=== PATIENT | male | born 1940 | race Caucasian/White ===

== ENCOUNTER → 2017-01-12 | Outpatient (CLI) | payer MEDICARE ==
--- NOTE | 2017-01-13 06:55 | MR ---
EXAMINATION TYPE: MR foot LT wo/w con DATE OF EXAM: 01/12/2017 COMPARISON: NONE HISTORY: Osteomyelitis left foot-bottom mid foot. Pain with open wound. CONTRAST: Standard multiplanar, multisequence MRI departmental protocol utilizing 9.5 ml mL intravenous Gadavis t gadolinium contrast. FINDINGS: There is ulceration skin and soft tissue along plantar surface midfoot level seen best on c oronal image 28 and sagittal image 12 with open defect identified. There is no suspicious edema or en hancement at this level to suggest significant active cellulitis or soft tissue infection. Bone marro w signal intensity is maintained at this level near the cuboid bone. No suspicious edema or enhanceme nt is identified. There is moderate to severe midfoot arthropathy with joint space loss and spurring. There is old Lisf ranc injury with divergence of the metatarsals relative to the cuneiform articulations, this is best seen on axial images at level of the base of second metatarsal which is 10 to 11 mm deviated laterall y from the medial base of the middle cuneiform. There is additional moderate to severe joint space loss in the first metatarsophalangeal and interpha langeal joints. Flexion in the toes is incidentally seen. Loss of normal sinus tarsi fat is noted. IMPRESSION: No convincing MRI evidence for active osteomyelitis. Other findings as noted above.
== END | disposition home or self-care (01) ==
LOC: RADMRIMAIN 20:01
PROVIDERS: ATTEND Surgery Vascular Surgery
DX: M86.9 Osteomyelitis, unspecified (principal)
CPT/HCPCS: 73720; A9581

== ENCOUNTER 2017-04-09 12:54 | Day surgery (SDC) | payer MEDICARE ==
[2017-04-07 16:20] VITALS: BMI 31.6
[~2017-04-09 12:54] MED LIST: DEXAMETHASONE SOD PHOSPHATE 10 MG/ML 1 ML VIAL IV ONE; HYDROmorphone 0.5 MG/0.5 ML SYRINGE IVP PRN; LACTATED RINGERS 1,000 ML IV SCH; LIDOCAINE 1% 20 ML VIAL (10MG/ML) FOR IV START INTRADERMA PRN; MIDAZOLAM 2 MG/2 ML VIAL IV PRN; ONDANSETRON 4 MG/2 ML VIAL IVP ONE; SCOPOLAMINE 1.5MG/72HR PATCH TRANSDERM ONE; ceFAZolin IN SWFI 2 GM/20 ML SYRINGE IVP ONE
[2017-04-09 13:54] LABS: Glucose,Whole Blood 235 mg/dL (75-99)
[2017-04-09] MEDS ORDERED: MIDAZOLAM 2 MG/2 ML VIAL ONE (16:27)
[2017-04-09] MEDS ORDERED: SUCCINYLCHOLINE CHLORIDE 100 MG/5 ML SYR IV ONE (16:27)
[2017-04-09] MEDS ORDERED: LIDOCAINE 1% INJ 10MG/ML (20 ML MDV) ONE (16:27)
[2017-04-09] MEDS ORDERED: fentaNYL (PF) 50 MCG/ML 2 ML AMP ONE (16:27)
[2017-04-09] MEDS ORDERED: PROPOFOL 10 MG/ML 20 ML VIAL IV ONE (16:27)
[2017-04-09] MEDS ORDERED: LACTATED RINGERS 1,000 ML IV ONE (17:00)
--- NOTE | 2017-04-09 17:15 | P.OP ---
Date of Procedure: 04/09/17 Preoperative Diagnosis: 1. Left plantar midfoot ulcer 2. Left Charcot midfoot arthritis 3. Left gastroc equinus contracture 4. Diabetes with peripheral neuropathy Postoperative Diagnosis: 1. Left plantar midfoot ulcer 2. Left Charcot midfoot arthritis 3. Left gastroc equinus contracture 4. Diabetes with peripheral neuropathy Procedure(s) Performed: Left gastroc recession (Heidi) Anesthesia: GETA Surgeon: Bong Davis Estimated Blood Loss (ml): 25 IV fluids (ml): 500 Pathology: none sent Condition: stable Disposition: PACU Indications for Procedure: The patient is a 77-year-old male with a medical history significant for diabetes with peripheral neuropathy. He was referred to my office with a nonhealing plantar midfoot ulcer. He is been managed in the wound Center. The patient came requesting surgical assistance to help his ulcer heel. We discussed both an isolated gastroc recession versus a combined gastroc recession and bony procedure. We discussed the literature for both. The patient and his requested an isolated gastroc recession acknowledging the risk of recurrence or failure to eradicate the ulcer. We discussed potential risks and complications of surgery including but not limited to risk of anesthesia, risk of superficial infection, risk of delayed wound healing, risk of recurrence of the ulcer, risk of failure to get the ulcer to heal, risk of need for further surgery, risk of need for an amputation, risk of chronic pain, risk of chronic swelling, risk of damage to blood vessels or nerves and possibly loss of life [place]mler the patient voiced his understanding of this and that there are other less common complications possible. He provided his verbal and written consent to go forward with surgery. Description of Procedure: Asians identified in preoperative holding and the correct left leg was marked with my initials. I reviewed the consent form with the patient and all of his questions were answered. He was brought back to the operating room and placed on an operating room table. A general anesthetic and preoperative antibiotics were administered. A tourniquet was applied of the proximal aspect of the left thigh. The patient's left leg was then prepped and draped in the standard sterile fashion. Prior to getting surgery timeout was performed identifying the correct patient operative extremity and procedure. The patient's leg was then elevated, exsanguinated with an Esmarch bandage and the tourniquet was inflated to 250 mmHg. Next I began by outlining a longitudinal incision 1 thumb breadth posterior to the tibia at the distal muscle belly of the gastrocnemius and skin incisions by the 50 but scalpel and I dissected down carefully to the subcutaneous tissue with tenotomy scissors. The superficial fascia was incised longitudinally in line with the skin incision. I bluntly developed the interval between the gastrocnemius aponeurosis and soleus fascia and between the gastrocnemius aponeurosis and superficial fascia. The sural nerve was seen to be adherent to the superficial fascia. Modified right angle retractors were placed in both intervals. I dissected the gastrocnemius aponeurosis from medial to lateral under direct visualization. The sural nerve was identified to be intact after completion of the gastroc recession. There is a significant increase in passive dorsiflexion with the knee extended. The wound was then copiously irrigated. The deep subcu was reapproximated using 3-0 Vicryl. The skin was closed with 3-0 nylon. I verified that all instrument, sponge, and sharp counts were correct. Sterile dressing consisting of Adaptic 4 x 4's and web roll was applied. The drapes were taken down and an Alex wrap was applied over the leg. He was placed in a tall cam boot and brought to PACU having top the procedure well.
[2017-04-09 17:25] VITALS: TEMP 97.4
[2017-04-09 17:31] LABS: Glucose,Whole Blood 256 mg/dL (75-99)
[2017-04-09] MEDS ORDERED: INSULIN ASPART 100 UNIT/ML 1 ML 10 ML VIAL SQ ONE (17:59)
[2017-04-09 18:24] VITALS: RESP 18
[2017-04-09 18:46] VITALS: PULSE 74
[2017-04-09 19:09] LABS: Glucose,Whole Blood 308 mg/dL (75-99)
[2017-04-09 19:14] VITALS: BP 146/70
== END 2017-04-09 19:32 | disposition home or self-care (01) ==
LOC: OR 12:54
PROVIDERS: ATTEND Orthopaedic Surgery
DX: E11.42 Type 2 diabetes mellitus with diabetic polyneuropathy (principal); E11.610 Type 2 diabetes mellitus with diabetic neuropathic arthropathy; E11.621 Type 2 diabetes mellitus with foot ulcer; L97.429 Non-pressure chronic ulcer of left heel and midfoot with unspecified severity; M62.472 Contracture of muscle, left ankle and foot; R26.81 Unsteadiness on feet; I10 Essential (primary) hypertension; E78.5 Hyperlipidemia, unspecified; Z79.4 Long term (current) use of insulin; Z79.899 Other long term (current) drug therapy; Z83.3 Family history of diabetes mellitus; Z87.891 Personal history of nicotine dependence; Z98.890 Other specified postprocedural states
CPT/HCPCS: 27687; J2250; J1100; J0690; J2405; J2001; J3010; J0330; J2704

== ENCOUNTER 2017-12-22 08:20 | Inpatient (IN) | payer MEDICARE ==
[2017-12-21 09:04] VITALS: BMI 31.6
[~2017-12-22 08:20] MED LIST changes: -HYDROmorphone 0.5 MG/0.5 ML SYRINGE IVP PRN; -LACTATED RINGERS 1,000 ML IV SCH; -SCOPOLAMINE 1.5MG/72HR PATCH TRANSDERM ONE; +fentaNYL (PF) 50 MCG/ML 2 ML AMP IV PRN; +fentaNYL (PF) 50 MCG/ML 20 ML VIAL IVP PRN
[2017-12-22 09:07] LABS: Glucose,Whole Blood 332 mg/dL (75-99)
[2017-12-22] MEDS: LACTATED RINGERS 1,000 ML IV SCH ×2 (09:10→18:22)
[2017-12-22] MEDS ORDERED: INSULIN ASPART 100 UNIT/ML 1 ML 10 ML VIAL SQ ONE ×2 (09:14→15:45)
[2017-12-22 11:30] LABS: Glucose,Whole Blood 259 mg/dL (75-99)
[2017-12-22] MEDS ORDERED: SUCCINYLCHOLINE CHLORIDE 100 MG/5 ML SYR IV ONE ×2 (11:31→21:00)
[2017-12-22] MEDS ORDERED: LIDOCAINE 1% INJ 10MG/ML (20 ML MDV) ONE ×2 (11:31→21:00)
[2017-12-22] MEDS ORDERED: NEOSTIGMINE 1 MG/ML 10 ML VIAL ONE ×2 (11:31→21:00)
[2017-12-22] MEDS ORDERED: MIDAZOLAM 2 MG/2 ML VIAL ONE ×2 (11:31→21:00)
[2017-12-22] MEDS ORDERED: ROCURONIUM BROMIDE 10 MG/ML 10 ML VIAL IV ONE ×2 (11:31→21:00)
[2017-12-22] MEDS ORDERED: fentaNYL (PF) 50 MCG/ML 2 ML AMP ONE ×2 (11:31→21:00)
[2017-12-22] MEDS ORDERED: PROPOFOL 10 MG/ML 20 ML VIAL IV ONE ×2 (11:31→21:00)
[2017-12-22] MEDS ORDERED: ePHEDrine SULFATE/0.9% NACL/PF 50 MG/5 ML SYRINGE IV ONE ×2 (11:31→21:00)
[2017-12-22] MEDS ORDERED: GLYCOPYRROLATE 0.2 MG/ML 2 ML VIAL ONE ×2 (11:31→21:00)
[2017-12-22] MEDS ORDERED: PHENYLEPHRINE-0.9% NACL SYG 1 MG/10 ML SYRINGE ONE ×2 (11:31→21:00)
[2017-12-22] MEDS ORDERED: HYDROmorphone (PF) 1 MG/ML ONE (11:31)
[2017-12-22] MEDS ORDERED: LACTATED RINGERS 1,000 ML IV ONE ×3 (12:18→15:51)
[2017-12-22] MEDS ORDERED: NALOXONE 0.4 MG/ML 1 ML VIAL IV PRN (13:56)
[2017-12-22] MEDS ORDERED: MAGNESIUM HYDROXIDE 2,400 MG/10 ML CUP PO PRN (13:56)
[2017-12-22] MEDS ORDERED: HYDROmorphone 1 MG/ML 1 ML SYRINGE IVP PRN (13:56)
[2017-12-22] MEDS ORDERED: HYDROcodone/APAP 5-325MG 1 EACH TAB PO PRN ×2 (13:56)
[2017-12-22] MEDS ORDERED: DIAZEPAM 5 MG TAB PO PRN (13:56)
--- NOTE | 2017-12-22 13:56 | P.OP ---
Date of Procedure: 12/22/17 Preoperative Diagnosis: 1. Left Charcot midfoot arthritis and collapse 2. Left recurrent plantar mid foot ulceration with skin at risk 3. Diabetes with peripheral neuropathy Postoperative Diagnosis: Same Procedure(s) Performed: 1. Left midfoot (multiple joints) 2. Left talonavicular fusion 3. Left biplanar midfoot osteotomy Anesthesia: REJI regional Surgeon: Bong Davis Employment Services Director #1: Rizwan Dumont Estimated Blood Loss (ml): 250 IV fluids (ml): 1,400 Pathology: none sent Condition: stable Disposition: PACU Indications for Procedure: The patient is a 77-year-old male with a history of multiple medical problems including type 2 diabetes and peripheral neuropathy who is had recurrent breakdown under the plantar aspect of his foot. His x-rays showed extensive Charcot arthritis and collapse. He initially underwent wound management and an isolated gastroc recession. Initially his ulcer healed but he has had recurrent superficial ulceration. He was seen in the wound center and by vascular surgery and sent to my office for definitive treatment. The patient had a repeat MRI which showed no evidence of deep infection. We discussed different surgical options and my recommendation was to undergo a biplanar midfoot osteotomy and fusion using Charcot beams and bolts. Discussed potential risks and complications of surgery including but not limited to risk of anesthesia, risk of superficial infection, risk of deep infection, risk of delayed wound healing, risk of nonunion of the fusion site, risk of malunion the fusion site, risk of symptom medical hardware, risk of chronic pain, risk of chronic swelling, risk of osteomyelitis, risk of DVT, risk of PE, risk of inability to regain preinjury level of function, risk of generalized to satisfaction of surgery, risk of amputation, and possibly loss of life. The patient voiced his understanding of this and acknowledges his risk for deep infection potentially requiring amputation. He provided his verbal and written consent to go forward with surgery. Description of Procedure: The patient was identified in preoperative holding and the correct left leg was marked my initials. I reviewed the consent form with the patient and his . All of their questions were answered. The patient was then brought back to the operating room by anesthesia. He was positioned on the OR table where general anesthetic and preoperative antibiotics were administered. A bump was placed under the left buttock internally rotating the leg to neutral. A ramp was placed under the left leg to facilitate imaging. A tourniquet was applied to the proximal aspect of the thigh. The left leg was then prepped and draped in the standard sterile fashion. Prior to starting surgery timeout was performed identifying the correct patient, operative extremity, and procedure. The patient's leg was then elevated, exsanguinated with an Esmarch bandage, and the tourniquet was inflated to 250 mmHg. Next I began by outlining a longitudinal incision over the medial aspect of the foot starting proximal to the talonavicular joint and ending at the mid shaft of the first metatarsal. Skin incision with a scalpel and dissection was carried down carefully to the subcutaneous tissue with tenotomy scissors. The midfoot was circumferentially exposed. K wires were placed for a biplanar osteotomy and fluoroscopy was used to verify the orientation in both planes. A cut guide was placed over the K wires and a closing wedge midfoot osteotomy was performed centered at the apex of the deformity in both planes. After both cuts were made with a reciprocating saw and osteotome was used to free up cut. I was able to reduce the deformity in both the AP and lateral plane. At this point the talonavicular joint was exposed and a distractor was placed. Articular cartilage from the talar head and navicular removed with a series of osteotomes and curettes. A 2.0 mm drill bit was used to perforate the subchondral bone to facilitate fusion. Augment was packed in the fusion site. An incision was made over the first MTP joint. Dissection was carried down to the EHL tendon was retracted laterally. The first MTP joint capsule was incised longitudinally in line with the skin incision. A K wire was then driven through the first metatarsal head up to the osteotomy site. The foot was adducted and plantarflexed to reduce the deformity and then the guidewire was driven across the osteotomy and into the talar head. The position of the wire was checked in both the AP and lateral plane. A cannulated depth gauge was used to determine the length of the beam and then a drill was used through drill over the K wire up to the talar head. A threaded compression Charcot beam was then placed over the K wire generating excellent compression. An additional hole was placed on the second ray. An incision was made over the dorsal aspect of the second MTP joint. The extensor tendon was retracted laterally and the capsule was incised. A K wire was driven through the second metatarsal head across the osteotomy site and into the talar body. The length of the K wire was measured with a cannulated depth gauge and then a solid beam was placed through second metatarsal head across the osteotomy site and into the talar body. Final fluoroscopic images were taken verifying that both the beam ample across the osteotomy site and within the talus. Both wounds were copiously irrigated. The medial wound was closed in layers with 0 Vicryl the deep subcu and periosteal layer, 2-0 Vicryl subcu, and 3-0 nylon in the skin. The capsules of the MTP joints were closed with 0 Vicryl. The deep subcu was closed with 2-0 Vicryl. The skin was closed with 3-0 nylon horizontal mattress sutures. The tourniquet was let down with a total tourniquet time of 105 minutes. I verified that all instrument, sponge, and sharp counts were correct. A sterile dressing consisting of Ancef Adaptic, 4 x 4, and web roll was applied. A well-padded bulky Mathews splint was placed with the ankle at neutral. The patient was then awoken from his anesthetic, transferred to a gurney, and brought to PACU in the procedure well. Rizwan Dumont PA-C was required a skilled assistant professor of spanish for patient positioning, surgical exposure, completion of osteotomy, placement of hardware, and closure of wounds. Plan: The patient is going to be admitted to the hospital for IV antibiotics, internal medicine consultation, and discharge planning. While the patient is in the hospital he will need to be treated with Lovenox for DVT prophylaxis. Following discharge from the hospital and okay with him taking aspirin for DVT prophylaxis unless medicine requests something different.
[2017-12-22] MEDS ORDERED: ROPIVACAINE 5 MG/ML 30 ML VIAL MISCELLANE ONE (14:58)
--- NOTE | 2017-12-22 15:10 | FL ---
Fluoroscopy HISTORY: Fusion 51 seconds fluoroscopy time supplied to the referring clinician. 4 intraoperative C-arm images docum ent the procedure. See dictated report from orthopedic surgery.
--- NOTE | 2017-12-22 15:11 | XR ---
Limited left leg HISTORY: Left pleural effusion 4 intraoperative C-arm images document the procedure.
[2017-12-22 15:32] LABS: Glucose,Whole Blood 281 mg/dL (75-99)
[2017-12-22 15:49] LABS: Basophils % (A) 0 %; Eosinophils # (A) 0.3 k/uL (0-0.7); Eosinophils % (A) 3 %; HCT 38.9 % (39.0-53.0); HGB 12.3 gm/dL (13.0-17.5); Lymphocytes # (A) 1.6 k/uL (1.0-4.8); Lymphocytes % (A) 21 %; MCH 28.8 pg (25.0-35.0); MCHC 31.7 g/dL (31.0-37.0); Mean Platelet Volume 6.3; Monocytes # (A) 0.4 k/uL (0-1.0); Monocytes % (A) 5 %; Neutrophils # (A) 5.3 k/uL (1.3-7.7); Neutrophils % (A) 69 %; Platelet Count 174 k/uL (150-450); RBC 4.28 m/uL (4.30-5.90); RDW 14.8 % (11.5-15.5); WBC 7.6 k/uL (3.8-10.6)
--- NOTE | 2017-12-22 17:42 | P.ONQ ---
Anesthesiology Proc Note - PNB - Peripheral Nerve Block Performed Left Popliteal Indication: Acute Post-Operative Pain, Requested by physician (Dr Page) Sedation Type: Sedate with meaningful contact maintained Preparation: Sterile Prep Position: Supine (lateral) Catheter: None Needle Types: Other (see comment) (Minda) Needle Size: 100mm (4") Needle Gauge: 21 Injectate: 0.5% Ropivacaine (see comment for volume) (22cc) Blood Aspirated: No Pain Paresthesia on Injection Noted: No Resistance on Injection: Normal Events: Uneventful and Well Tolerated
[2017-12-22] MEDS: SODIUM CHLORIDE 0.9% 1,000 ML IV SCH (18:21)
[2017-12-22] MEDS: ceFAZolin IN SWFI 2 GM/20 ML SYRINGE IVP SCH (19:29)
[2017-12-22 20:06] LABS: Glucose,Whole Blood 337 mg/dL (75-99)
[2017-12-22] MEDS ORDERED: HYDROmorphone 1 MG/ML 1 ML SYRINGE ONE (21:00)
[2017-12-22] MEDS ORDERED: INSULIN DETEMIR 100 UNIT/ML 10 ML VIAL SQ SCH (21:00)
[2017-12-22] MEDS: metFORMIN 500 MG TAB PO SCH (21:08)
[2017-12-22] MEDS: ATORVASTATIN 20 MG TAB PO SCH (21:08)
[2017-12-22] MEDS: SENNOSIDES-DOCUSATE SODIUM 1 EACH TAB PO SCH (21:44)
[2017-12-23] MEDS: ceFAZolin IN SWFI 2 GM/20 ML SYRINGE IVP SCH (00:08)
[2017-12-23] MEDS: SODIUM CHLORIDE 0.9% 1,000 ML IV SCH ×3 (04:55→21:37)
[2017-12-23] MEDS ORDERED: INSULIN DETEMIR 100 UNIT/ML 10 ML VIAL SQ SCH (06:36)
[2017-12-23 07:04] LABS: Glucose,Whole Blood 289 mg/dL (75-99)
[2017-12-23] MEDS: glipiZIDE 5 MG TAB PO SCH (07:43)
[2017-12-23] MEDS: metFORMIN 500 MG TAB PO SCH ×2 (07:43→21:32)
[2017-12-23] MEDS: LISINOPRIL 10 MG TAB PO SCH (07:43)
[2017-12-23] MEDS: ENOXAPARIN 40 MG/0.4 ML SYRINGE SQ SCH (07:43)
[2017-12-23 11:11] LABS: Glucose,Whole Blood 260 mg/dL (75-99)
[2017-12-23 11:39] LABS: Basophils % (A) 0 %; Eosinophils # (A) 0.3 k/uL (0-0.7); Eosinophils % (A) 3 %; HGB 11.7 gm/dL (13.0-17.5); Lymphocytes # (A) 1.1 k/uL (1.0-4.8); Lymphocytes % (A) 11 %; MCH 29.2 pg (25.0-35.0); MCHC 31.6 g/dL (31.0-37.0); MCV 92.3 fL (80.0-100.0); Mean Platelet Volume 6.5; Monocytes # (A) 0.7 k/uL (0-1.0); Monocytes % (A) 7 %; Neutrophils # (A) 8.1 k/uL (1.3-7.7); Neutrophils % (A) 78 %; Platelet Count 164 k/uL (150-450); RBC 4.01 m/uL (4.30-5.90); RDW 14.8 % (11.5-15.5); WBC 10.3 k/uL (3.8-10.6)
[2017-12-23 11:46] LABS: ALT 28 U/L (21-72); AST 17 U/L (17-59); Albumin 3.1 g/dL (3.5-5.0); Alkaline Phosphatase 40 U/L (38-126); Anion Gap 11 mmol/L; Blood Urea Nitrogen 15 mg/dL (9-20); Calcium 8.5 mg/dL (8.4-10.2); Carbon Dioxide 22 mmol/L (22-30); Chloride 103 mmol/L (98-107); Glucose 251 mg/dL (74-99); Potassium 4.2 mmol/L (3.5-5.1); Sodium 136 mmol/L (137-145); Total Bilirubin 0.5 mg/dL (0.2-1.3); Total Protein 5.7 g/dL (6.3-8.2)
--- NOTE | 2017-12-23 12:26 | P.CONS ---
History of Present Illness - History of Present Illness 77-year-old male who is postoperative for left foot biplanar osteotomy midfoot fusion history of Charcot. Patient is a diabetic Review of Systems Musculoskeletal: left: foot pain Past Medical History Past Medical History: Cancer, Diabetes Mellitus, Hyperlipidemia, Osteoarthritis (OA), Prostate Disorder, Sleep Apnea/CPAP/BIPAP Additional Past Medical History / Comment(s): doesn't use CPAP, hx. skin cancer on nose, finished in wound center couple weeks ago for wound left foot-now healed per pt. History of Any Multi-Drug Resistant Organisms: None Reported Past Surgical History: Adenoidectomy, Appendectomy, Back Surgery, Orthopedic Surgery, Tonsillectomy Additional Past Surgical History / Comment(s): ROTATOR CUFF BILAT SHOULDERS, BACK SURGERY FUSION L4-5 2014 Past Anesthesia/Blood Transfusion Reactions: No Reported Reaction Past Psychological History: No Psychological Hx Reported Smoking Status: Former smoker Past Alcohol Use History: Rare Additional Past Alcohol Use History / Comment(s): smoked 1 ppd from age 17 until 1993 Past Drug Use History: None Reported - Past Family History Mother Family Medical History: Cancer Additional Family Medical History / Comment(s): COLON CANCER Father Family Medical History: Diabetes Mellitus Medications and Allergies Home Medications Medication Instructions Recorded Confirmed Type Lisinopril [Zestril] 10 mg PO DAILY 01/11/17 12/21/17 History Simvastatin 40 mg PO HS 01/11/17 12/21/17 History glipiZIDE [Glucotrol] 5 mg PO DAILY 01/11/17 12/21/17 History metFORMIN HCL 1,000 mg PO BID 01/11/17 12/21/17 History Insulin Glargine,Hum.rec.anlog 60 units SQ HS 04/07/17 12/22/17 History [Ko Rogers] Allergies Allergy/AdvReac Type Severity Reaction Status Date / Time No Known Allergies Allergy Verified 12/22/17 08:54 Physical Exam Vitals: Vital Signs Temp Pulse Pulse Resp BP BP Pulse Ox 12/23/17 07:43 86 16 12/23/17 05:30 98.1 F 86 16 132/67 96 12/22/17 21:00 98 F 85 16 143/73 94 L 12/22/17 17:15 79 16 102/73 98 12/22/17 16:45 83 16 100/63 98 12/22/17 16:05 81 16 99/76 99 12/22/17 15:50 74 16 110/61 96 12/22/17 15:35 74 16 108/53 95 12/22/17 15:18 75 16 118/69 97 12/22/17 15:03 76 16 115/56 96 12/22/17 14:47 73 16 116/53 97 12/22/17 14:34 74 16 119/60 96 12/22/17 14:19 96.8 F L 79 14 122/61 100 Intake and Output 12/22/17 12/23/17 12/23/17 22:59 06:59 14:59 Intake Total 275 800 Balance 275 800 Intake: IV 275 800 Sodium Chloride 0.9% 1, 800 000 ml @ 100 mls/hr IV . Q10H [facility] Rx#:[id number] Other: Voiding Method Urinal Urinal # Voids 2 Weight 97.069 kg 97.069 kg - Constitutional General appearance: obese - EENT Eyes: PERRLA Ears: bilateral: normal - Neck Neck: normal ROM - Respiratory Respiratory: bilateral: CTA - Cardiovascular Rhythm: regular - Gastrointestinal General gastrointestinal: scaphoid, soft - Integumentary Integumentary: normal - Neurologic Neurologic: CNII-XII intact - Musculoskeletal Left foot splinted and wrapped to knee - Psychiatric Psychiatric: A&O x's 3, appropriate affect, intact judgment & insight Results CBC & Chem 7: 12/23/17 10:29 12/23/17 10:29 Labs: Abnormal Lab Results - Last 24 Hours (Table) 12/22/17 12/22/17 12/22/17 Range/Units 15:25 15:25 15:27 RBC 4.28 L (4.30-5.90) m/uL Hgb 12.3 L (13.0-17.5) gm/dL Hct 38.9 L (39.0-53.0) % Neutrophils # (1.3-7.7) k/uL Sodium (137-145) mmol/L Creatinine (0.66-1.25) mg/dL Glucose (74-99) mg/dL POC Glucose (mg/dL) 281 H (75-99) mg/dL Total Protein (6.3-8.2) g/dL Albumin (3.5-5.0) g/dL Vitamin D 25-Hydroxy 28.0 L (30.0-100.0) ng/mL 12/22/17 12/23/17 12/23/17 Range/Units 20:04 07:02 10:29 RBC 4.01 L (4.30-5.90) m/uL Hgb 11.7 L (13.0-17.5) gm/dL Hct 37.0 L (39.0-53.0) % Neutrophils # 8.1 H (1.3-7.7) k/uL Sodium (137-145) mmol/L Creatinine (0.66-1.25) mg/dL Glucose (74-99) mg/dL POC Glucose (mg/dL) 337 H 289 H (75-99) mg/dL Total Protein (6.3-8.2) g/dL Albumin (3.5-5.0) g/dL Vitamin D 25-Hydroxy (30.0-100.0) ng/mL 12/23/17 12/23/17 Range/Units 10:29 11:08 RBC (4.30-5.90) m/uL Hgb (13.0-17.5) gm/dL Hct (39.0-53.0) % Neutrophils # (1.3-7.7) k/uL Sodium 136 L (137-145) mmol/L Creatinine 0.60 L (0.66-1.25) mg/dL Glucose 251 H (74-99) mg/dL POC Glucose (mg/dL) 260 H (75-99) mg/dL Total Protein 5.7 L (6.3-8.2) g/dL Albumin 3.1 L (3.5-5.0) g/dL Vitamin D 25-Hydroxy (30.0-100.0) ng/mL Assessment and Plan Plan: Assessment Left Charcot foot postoperative biplanar osteotomy with midfoot fusion History of diabetes type 2 to be covered with NovoLog scale History of hypertension History of hyperlipidemia History of osteoarthritis BPH Sleep apnea Plan We'll monitor hypertension and noted diabetes
[2017-12-23] MEDS ORDERED: INSULIN ASPART 100 UNIT/ML 1 ML 10 ML VIAL SQ SCH (12:30)
[2017-12-23] MEDS: MULTIVITAMINS, THERA 1 EACH TAB PO SCH (12:31)
[2017-12-23] MEDS: INSULIN ASPART 100 UNIT/ML 1 ML 10 ML VIAL SQ SCH ×3 (12:31→21:32)
--- NOTE | 2017-12-23 17:08 | P.PN ---
Subjective Progress Note Date: 12/23/17 Principal diagnosis: S/P Left talonavicular fusion and Left biplanar midfoot osteotomy Patient is seen at bedside today. He is postop day #1 from left talonavicular fusion and Left biplanar midfoot osteotomy. He has minimal pain at the surgical site as expected but denies any new complaints. He denies new numbness , tingling or calf pain. Review of systems is negative for fever, chills, chest pain, shortness of breath or other Objective - Vital Signs Vital signs: Vital Signs Temp 98.1 F 12/23/17 05:30 Pulse 86 12/23/17 15:06 Resp 16 12/23/17 15:06 BP 132/67 12/23/17 05:30 Pulse Ox 96 12/23/17 05:30 Intake & Output 12/22/17 12/23/17 12/23/17 18:59 06:59 18:59 Intake Total 2075 800 700 Output Total 250 Balance 1825 800 700 Weight 97.069 kg 97.069 kg Intake: IV 2075 800 Sodium Chloride 0.9% 1, 800 000 ml @ 100 mls/hr IV . Q10H [facility] Rx#:[id number] Intake, IV Titration 700 Amount Sodium Chloride 0.9% 1, 700 000 ml @ 100 mls/hr IV . Q10H [facility] Rx#:[id number] Output: Estimated Blood Loss 250 Other: Voiding Method Urinal Urinal # Voids 2 - Exam Inspection reveals a benign well padded bulky splint. There is no active bleeding or drainage. Neurovascular status is intact throughout the lower extremity. He had preoperative peripheral neuropathy and numbness. Calf is soft and nontender. Less than 2 second cap refill is present in all digits - Constitutional General appearance: Present: no acute distress - Psychiatric Psychiatric: Present: A&O x's 3, appropriate affect, intact judgment & insight - Labs CBC & Chem 7: 12/23/17 10:29 12/23/17 10:29 Labs: Abnormal Lab Results - Last 24 Hours (Table) 12/22/17 12/22/17 12/23/17 Range/Units 15:25 20:04 07:02 RBC (4.30-5.90) m/uL Hgb (13.0-17.5) gm/dL Hct (39.0-53.0) % Neutrophils # (1.3-7.7) k/uL Sodium (137-145) mmol/L Creatinine (0.66-1.25) mg/dL Glucose (74-99) mg/dL POC Glucose (mg/dL) 337 H 289 H (75-99) mg/dL Total Protein (6.3-8.2) g/dL Albumin (3.5-5.0) g/dL Vitamin D 25-Hydroxy 28.0 L (30.0-100.0) ng/mL 12/23/17 12/23/17 12/23/17 Range/Units 10:29 10:29 11:08 RBC 4.01 L (4.30-5.90) m/uL Hgb 11.7 L (13.0-17.5) gm/dL Hct 37.0 L (39.0-53.0) % Neutrophils # 8.1 H (1.3-7.7) k/uL Sodium 136 L (137-145) mmol/L Creatinine 0.60 L (0.66-1.25) mg/dL Glucose 251 H (74-99) mg/dL POC Glucose (mg/dL) 260 H (75-99) mg/dL Total Protein 5.7 L (6.3-8.2) g/dL Albumin 3.1 L (3.5-5.0) g/dL Vitamin D 25-Hydroxy (30.0-100.0) ng/mL Assessment and Plan (1) Charcot's joint of foot Narrative/Plan: He will continue with routine postop orthopedic protocol including pain management, wound care, PT, DVT prophylaxis and medical management. Expect that he will transfer to rehab in next few days. Current Visit: Yes Status: Acute Priority: Medium Code(s): M14.679 - CHARCOT'S JOINT, UNSPECIFIED ANKLE AND FOOT SNOMED Code(s): 065045377 Time with Patient: Less than 30
[2017-12-23 17:32] LABS: Glucose,Whole Blood 240 mg/dL (75-99)
[2017-12-23 21:15] LABS: Glucose,Whole Blood 253 mg/dL (75-99)
[2017-12-23] MEDS: LACTATED RINGERS 1,000 ML IV SCH (21:29)
[2017-12-23] MEDS: SENNOSIDES-DOCUSATE SODIUM 1 EACH TAB PO SCH (21:32)
[2017-12-23] MEDS: ATORVASTATIN 20 MG TAB PO SCH (21:32)
[2017-12-24] MEDS ORDERED: HYDROmorphone 2 MG TAB PO PRN (06:22)
[2017-12-24 07:15] LABS: Basophils % (A) 0 %; Eosinophils # (A) 0.2 k/uL (0-0.7); Eosinophils % (A) 2 %; HCT 33.4 % (39.0-53.0); HGB 10.6 gm/dL (13.0-17.5); Lymphocytes # (A) 1.2 k/uL (1.0-4.8); Lymphocytes % (A) 12 %; MCH 28.4 pg (25.0-35.0); MCHC 31.8 g/dL (31.0-37.0); MCV 89.3 fL (80.0-100.0); Mean Platelet Volume 6.9; Monocytes # (A) 0.6 k/uL (0-1.0); Monocytes % (A) 6 %; Neutrophils # (A) 7.6 k/uL (1.3-7.7); Neutrophils % (A) 78 %; Platelet Count 166 k/uL (150-450); RBC 3.74 m/uL (4.30-5.90); RDW 14.4 % (11.5-15.5); WBC 9.7 k/uL (3.8-10.6)
[2017-12-24 07:17] LABS: Glucose,Whole Blood 185 mg/dL (75-99)
[2017-12-24] MEDS: ENOXAPARIN 40 MG/0.4 ML SYRINGE SQ SCH (07:44)
[2017-12-24] MEDS: glipiZIDE 5 MG TAB PO SCH (07:44)
[2017-12-24] MEDS: LISINOPRIL 10 MG TAB PO SCH (07:44)
[2017-12-24] MEDS: INSULIN ASPART 100 UNIT/ML 1 ML 10 ML VIAL SQ SCH ×4 (07:44→21:01)
[2017-12-24] MEDS: metFORMIN 500 MG TAB PO SCH ×2 (07:44→21:03)
[2017-12-24 11:37] LABS: Glucose,Whole Blood 239 mg/dL (75-99)
[2017-12-24] MEDS: MULTIVITAMINS, THERA 1 EACH TAB PO SCH (12:40)
--- NOTE | 2017-12-24 13:08 | P.PN ---
Subjective Progress Note Date: 12/24/17 Principal diagnosis: S/P Left talonavicular fusion and Left biplanar midfoot osteotomy Patient is seen at bedside today. He is postop day #2 from left talonavicular fusion and Left biplanar midfoot osteotomy. He has minimal pain at the surgical site as expected but denies any new complaints. He denies new numbness , tingling or calf pain. Review of systems is negative for fever, chills, chest pain, shortness of breath or other Objective - Vital Signs Vital signs: Vital Signs Temp 98.4 F 12/24/17 06:31 Pulse 87 12/24/17 07:44 Resp 16 12/24/17 07:44 BP 138/70 12/24/17 06:31 Pulse Ox 92 L 12/24/17 06:31 Intake & Output 12/23/17 12/24/17 12/24/17 18:59 06:59 18:59 Intake Total 700 500 Balance 700 500 Intake: IV 400 Sodium Chloride 0.9% 1, 400 000 ml @ 100 mls/hr IV . Q10H [facility] Rx#:[id number] Intake, IV Titration 700 Amount Sodium Chloride 0.9% 1, 700 000 ml @ 100 mls/hr IV . Q10H [facility] Rx#:[id number] Oral 100 Other: Voiding Method Urinal Urinal Urinal - Exam Inspection reveals a benign well padded bulky splint. There is no active bleeding or drainage. Neurovascular status is intact throughout the lower extremity. He had preoperative peripheral neuropathy and numbness. Calf is soft and nontender. Less than 2 second cap refill is present in all digits - Constitutional General appearance: Present: no acute distress - Psychiatric Psychiatric: Present: A&O x's 3, appropriate affect, intact judgment & insight - Labs CBC & Chem 7: 12/24/17 06:56 12/23/17 10:29 Labs: Abnormal Lab Results - Last 24 Hours (Table) 12/23/17 12/23/17 12/24/17 Range/Units 17:28 21:13 06:56 RBC 3.74 L (4.30-5.90) m/uL Hgb 10.6 L (13.0-17.5) gm/dL Hct 33.4 L (39.0-53.0) % POC Glucose (mg/dL) 240 H 253 H (75-99) mg/dL 12/24/17 12/24/17 Range/Units 07:16 11:36 RBC (4.30-5.90) m/uL Hgb (13.0-17.5) gm/dL Hct (39.0-53.0) % POC Glucose (mg/dL) 185 H 239 H (75-99) mg/dL Assessment and Plan (1) Charcot's joint of foot Narrative/Plan: He will continue with routine postop orthopedic protocol including pain management, wound care, PT, DVT prophylaxis and medical management. Expect that he will transfer to rehab in next few days. Current Visit: Yes Status: Acute Priority: Medium Code(s): M14.679 - CHARCOT'S JOINT, UNSPECIFIED ANKLE AND FOOT SNOMED Code(s): 978277113 Time with Patient: Less than 30
[2017-12-24] MEDS: LACTATED RINGERS 1,000 ML IV SCH (14:34)
[2017-12-24] MEDS: SODIUM CHLORIDE 0.9% 1,000 ML IV SCH ×2 (14:34→21:47)
[2017-12-24 16:54] LABS: Glucose,Whole Blood 201 mg/dL (75-99)
--- NOTE | 2017-12-24 19:49 | P.PN ---
Subjective Progress Note Date: 12/24/17 Progress note being dictated for Dr. Ravi. Interval history: This is a 77-year-old Left talonavicular fusion and Left biplanar midfoot osteotomy. Patient has history of neuropathy, denies pain currently. Denies numbness. Passing flatus, positive bowel movement this morning. Denies chest pain, palpitations or increasing shortness of breath. Objective - Vital Signs Vital signs: Vital Signs Temp 99.8 F H 12/24/17 12:35 Pulse 98 12/24/17 15:28 Resp 20 12/24/17 15:28 BP 127/62 12/24/17 12:35 Pulse Ox 94 L 12/24/17 12:35 Intake & Output 12/24/17 12/24/17 12/25/17 06:59 18:59 06:59 Intake Total 500 Balance 500 Intake: IV 400 Sodium Chloride 0.9% 1, 400 000 ml @ 100 mls/hr IV . Q10H SHAHEED Rx#:[id number] Oral 100 Other: Voiding Method Urinal Urinal # Voids 3 # Bowel Movements 2 - Exam PHYSICAL EXAM: VITAL SIGNS: As above GENERAL: Sitting up in bed, no acute distress HEENT: Conjunctivae normal. eyes normal. Oral mucosa moist NECK: No JVD. No thyroid enlargement. No LNs CARDIOVASCULAR: S1, S2 muffled. No murmur RESPIRATION: Breath sounds diminished in the bases. No rhonchi or crackles. No bronchial breathing. ABDOMEN: Soft, nontender . No guarding. no masses palpable. .Bowel sounds heard. LEGS: No edema. no swelling PSYCHIATRY: Alert and oriented -3, mood and affect normal. NERVOUS SYSTEM: Cranial N 2-12 grossly normal. Moves all 4 limbs. Diffuse weakness No focal deficits. EXTREMITY: Left lower extremity with splint clean dry and intact. digits warm. - Labs CBC & Chem 7: 12/24/17 06:56 12/23/17 10:29 Labs: Abnormal Lab Results - Last 24 Hours (Table) 12/23/17 12/24/17 12/24/17 Range/Units 21:13 06:56 07:16 RBC 3.74 L (4.30-5.90) m/uL Hgb 10.6 L (13.0-17.5) gm/dL Hct 33.4 L (39.0-53.0) % POC Glucose (mg/dL) 253 H 185 H (75-99) mg/dL 12/24/17 12/24/17 Range/Units 11:36 16:52 RBC (4.30-5.90) m/uL Hgb (13.0-17.5) gm/dL Hct (39.0-53.0) % POC Glucose (mg/dL) 239 H 201 H (75-99) mg/dL Assessment and Plan Assessment: 1. Charcot's foot, S/P Left talonavicular fusion and Left biplanar midfoot osteotomy 2. Diabetes mellitus type 2 3. Hypertension 4. Hyperlipidemia 5. Sleep apnea 6. BPH Plan: Continue current medication regime ,monitoring and symptomatic treatment. Pain management as per primary. Levemir increased, blood sugars elevated. Close monitoring of Accu-Cheks. GI and DVT prophylaxis in place. Social work assisting and subacute rehab placement. The impression and plan of care has been dictated as directed. : I performed a history and examination of this patient, discussed the same with the dictator. I agree with the dictator's note ,documented as a scribe. Any additional findings or plans will be noted.
[2017-12-24] MEDS ORDERED: PANTOPRAZOLE 40 MG/10 ML VIAL IVP SCH (20:00)
[2017-12-24 21:02] LABS: Glucose,Whole Blood 271 mg/dL (75-99)
[2017-12-24] MEDS: ATORVASTATIN 20 MG TAB PO SCH (21:04)
[2017-12-24] MEDS: SENNOSIDES-DOCUSATE SODIUM 1 EACH TAB PO SCH (21:47)
[2017-12-24] MEDS: PANTOPRAZOLE 40 MG TABLET PO SCH (21:53)
[2017-12-24] MEDS: INSULIN DETEMIR 100 UNIT/ML 10 ML VIAL SQ SCH (21:53)
[2017-12-25] MEDS: SODIUM CHLORIDE 0.9% 1,000 ML IV SCH ×3 (02:59→23:30)
[2017-12-25 07:01] LABS: Glucose,Whole Blood 148 mg/dL (75-99)
[2017-12-25 07:17] LABS: Basophils % (A) 0 %; Eosinophils # (A) 0.1 k/uL (0-0.7); Eosinophils % (A) 2 %; HCT 32.5 % (39.0-53.0); HGB 10.6 gm/dL (13.0-17.5); Lymphocytes # (A) 1.1 k/uL (1.0-4.8); Lymphocytes % (A) 12 %; MCH 29.3 pg (25.0-35.0); MCHC 32.4 g/dL (31.0-37.0); MCV 90.2 fL (80.0-100.0); Mean Platelet Volume 6.7; Monocytes # (A) 0.6 k/uL (0-1.0); Monocytes % (A) 6 %; Neutrophils # (A) 7.2 k/uL (1.3-7.7); Neutrophils % (A) 79 %; Platelet Count 169 k/uL (150-450); RBC 3.61 m/uL (4.30-5.90); RDW 14.2 % (11.5-15.5); WBC 9.2 k/uL (3.8-10.6)
[2017-12-25 07:38] LABS: Anion Gap 8 mmol/L; Blood Urea Nitrogen 11 mg/dL (9-20); Calcium 8.4 mg/dL (8.4-10.2); Carbon Dioxide 24 mmol/L (22-30); Chloride 104 mmol/L (98-107); Glucose 128 mg/dL (74-99); Potassium 3.9 mmol/L (3.5-5.1); Sodium 136 mmol/L (137-145)
[2017-12-25] MEDS: ENOXAPARIN 40 MG/0.4 ML SYRINGE SQ SCH (08:07)
[2017-12-25] MEDS: LISINOPRIL 10 MG TAB PO SCH (08:07)
[2017-12-25] MEDS: glipiZIDE 5 MG TAB PO SCH (08:07)
[2017-12-25] MEDS: metFORMIN 500 MG TAB PO SCH ×2 (08:07→21:01)
[2017-12-25] MEDS: PANTOPRAZOLE 40 MG TABLET PO SCH (08:07)
[2017-12-25] MEDS: INSULIN ASPART 100 UNIT/ML 1 ML 10 ML VIAL SQ SCH ×4 (08:09→21:02)
[2017-12-25] MEDS: MULTIVITAMINS, THERA 1 EACH TAB PO SCH (11:29)
[2017-12-25] MEDS: LACTATED RINGERS 1,000 ML IV SCH (11:29)
[2017-12-25 11:47] LABS: Glucose,Whole Blood 123 mg/dL (75-99)
--- NOTE | 2017-12-25 12:45 | P.PN ---
Subjective This is a 77-year-old Left talonavicular fusion and Left biplanar midfoot osteotomy. Patient has history of neuropathy, denies pain currently. Denies numbness. Passing flatus, positive bowel movement this morning. Denies chest pain, palpitations or increasing shortness of breath. 12/25/2017 No overnight events Objective - Vital Signs Vital signs: Vital Signs Temp 99.1 F 12/25/17 05:00 Pulse 85 12/25/17 08:50 Resp 16 12/25/17 08:50 BP 114/68 12/25/17 05:00 Pulse Ox 93 L 12/25/17 05:00 Intake & Output 12/24/17 12/25/17 12/25/17 18:59 06:59 18:59 Intake Total 100 Balance 100 Weight 97.069 kg Intake: Oral 100 Other: Voiding Method Urinal Urinal Urinal # Voids 3 1 # Bowel Movements 2 - Exam PHYSICAL EXAM: VITAL SIGNS: As above GENERAL: Sitting up in bed, no acute distress HEENT: Conjunctivae normal. eyes normal. Oral mucosa moist NECK: No JVD. No thyroid enlargement. No LNs CARDIOVASCULAR: S1, S2 muffled. No murmur RESPIRATION: Breath sounds diminished in the bases. No rhonchi or crackles. No bronchial breathing. ABDOMEN: Soft, nontender . No guarding. no masses palpable. .Bowel sounds heard. LEGS: No edema. no swelling PSYCHIATRY: Alert and oriented -3, mood and affect normal. NERVOUS SYSTEM: Cranial N 2-12 grossly normal. Moves all 4 limbs. Diffuse weakness No focal deficits. EXTREMITY: Left lower extremity with splint clean dry and intact. digits warm. - Labs CBC & Chem 7: 12/25/17 06:34 12/25/17 06:34 Labs: Abnormal Lab Results - Last 24 Hours (Table) 12/24/17 12/24/17 12/25/17 Range/Units 16:52 20:46 06:34 RBC 3.61 L (4.30-5.90) m/uL Hgb 10.6 L (13.0-17.5) gm/dL Hct 32.5 L (39.0-53.0) % Sodium (137-145) mmol/L Glucose (74-99) mg/dL POC Glucose (mg/dL) 201 H 271 H (75-99) mg/dL 12/25/17 12/25/17 12/25/17 Range/Units 06:34 06:59 11:46 RBC (4.30-5.90) m/uL Hgb (13.0-17.5) gm/dL Hct (39.0-53.0) % Sodium 136 L (137-145) mmol/L Glucose 128 H (74-99) mg/dL POC Glucose (mg/dL) 148 H 123 H (75-99) mg/dL Assessment and Plan Plan: Assessment and Plan Assessment: 1. Charcot's foot, S/P Left talonavicular fusion and Left biplanar midfoot osteotomy 2. Diabetes mellitus type 2 3. Hypertension 4. Hyperlipidemia 5. Sleep apnea 6. BPH Plan: Continue current medication regime ,monitoring and symptomatic treatment. Pain management as per primary. Levemir increased, blood sugars elevated. Close monitoring of Accu-Cheks. GI and DVT prophylaxis in place. Social work assisting and subacute rehab placement.
--- NOTE | 2017-12-25 17:10 | P.PN ---
Subjective Progress Note Date: 12/25/17 Principal diagnosis: S/P Left talonavicular fusion and Left biplanar midfoot osteotomy Patient is seen at bedside today. He is postop day #3 from left talonavicular fusion and Left biplanar midfoot osteotomy. He has minimal pain at the surgical site as expected but denies any new complaints. He denies new numbness , tingling or calf pain. Review of systems is negative for fever, chills, chest pain, shortness of breath or other Objective - Vital Signs Vital signs: Vital Signs Temp 98.6 F 12/25/17 13:00 Pulse 88 12/25/17 16:00 Resp 16 12/25/17 16:00 BP 120/67 12/25/17 13:00 Pulse Ox 96 12/25/17 13:00 Intake & Output 12/24/17 12/25/17 12/25/17 18:59 06:59 18:59 Intake Total 100 240 Output Total 500 Balance 100 -260 Weight 97.069 kg Intake: Oral 100 240 Output: Urine 500 Other: Voiding Method Urinal Urinal Urinal # Voids 3 1 # Bowel Movements 2 - Exam Inspection reveals a benign well padded bulky splint. There is no active bleeding or drainage. Neurovascular status is intact throughout the lower extremity. He had preoperative peripheral neuropathy and numbness. Calf is soft and nontender. Less than 2 second cap refill is present in all digits - Constitutional General appearance: Present: no acute distress - Psychiatric Psychiatric: Present: A&O x's 3 - Labs CBC & Chem 7: 12/25/17 06:34 12/25/17 06:34 Labs: Abnormal Lab Results - Last 24 Hours (Table) 12/24/17 12/25/17 12/25/17 Range/Units 20:46 06:34 06:34 RBC 3.61 L (4.30-5.90) m/uL Hgb 10.6 L (13.0-17.5) gm/dL Hct 32.5 L (39.0-53.0) % Sodium 136 L (137-145) mmol/L Glucose 128 H (74-99) mg/dL POC Glucose (mg/dL) 271 H (75-99) mg/dL 12/25/17 12/25/17 Range/Units 06:59 11:46 RBC (4.30-5.90) m/uL Hgb (13.0-17.5) gm/dL Hct (39.0-53.0) % Sodium (137-145) mmol/L Glucose (74-99) mg/dL POC Glucose (mg/dL) 148 H 123 H (75-99) mg/dL Assessment and Plan (1) Charcot's joint of foot Narrative/Plan: He will continue with routine postop orthopedic protocol including pain management, wound care, PT, DVT prophylaxis and medical management. Expect that he will transfer to rehab in next few days. Current Visit: Yes Status: Acute Priority: Medium Code(s): M14.679 - CHARCOT'S JOINT, UNSPECIFIED ANKLE AND FOOT SNOMED Code(s): 576818381 Time with Patient: Less than 30
[2017-12-25 17:35] LABS: Glucose,Whole Blood 191 mg/dL (75-99)
[2017-12-25 20:41] LABS: Glucose,Whole Blood 187 mg/dL (75-99)
[2017-12-25] MEDS: ATORVASTATIN 20 MG TAB PO SCH (21:00)
[2017-12-25] MEDS: INSULIN DETEMIR 100 UNIT/ML 10 ML VIAL SQ SCH (21:01)
[2017-12-25] MEDS: SENNOSIDES-DOCUSATE SODIUM 1 EACH TAB PO SCH (21:04)
[2017-12-26 02:02] LABS: Glucose,Whole Blood 195 mg/dL (75-99)
[2017-12-26 07:08] LABS: Glucose,Whole Blood 200 mg/dL (75-99)
[2017-12-26] MEDS: LISINOPRIL 10 MG TAB PO SCH (08:37)
[2017-12-26] MEDS: metFORMIN 500 MG TAB PO SCH ×2 (08:37→20:40)
[2017-12-26] MEDS: glipiZIDE 5 MG TAB PO SCH (08:37)
[2017-12-26] MEDS: SODIUM CHLORIDE 0.9% 1,000 ML IV SCH ×2 (08:38→17:04)
[2017-12-26] MEDS: PANTOPRAZOLE 40 MG TABLET PO SCH (08:38)
[2017-12-26] MEDS: ENOXAPARIN 40 MG/0.4 ML SYRINGE SQ SCH (08:38)
[2017-12-26] MEDS: INSULIN ASPART 100 UNIT/ML 1 ML 10 ML VIAL SQ SCH ×4 (08:44→20:40)
[2017-12-26] MEDS: LACTATED RINGERS 1,000 ML IV SCH (08:47)
--- NOTE | 2017-12-26 10:17 | P.PN ---
Subjective Progress Note Date: 12/26/17 Principal diagnosis: S/P Left talonavicular fusion and Left biplanar midfoot osteotomy Patient is seen at bedside today. He is postop day #4 from left talonavicular fusion and Left biplanar midfoot osteotomy. He has minimal pain at the surgical site as expected but denies any new complaints. He denies new numbness , tingling or calf pain. Review of systems is negative for fever, chills, chest pain, shortness of breath or other Objective - Vital Signs Vital signs: Vital Signs Temp 99.5 F 12/26/17 05:00 Pulse 83 12/26/17 08:35 Resp 16 12/26/17 08:35 BP 128/64 12/26/17 05:00 Pulse Ox 91 L 12/26/17 05:00 Intake & Output 12/25/17 12/26/17 12/26/17 18:59 06:59 18:59 Intake Total 240 860 Output Total 500 300 Balance -260 560 Intake: Oral 240 860 Output: Urine 500 300 Other: Voiding Method Urinal Urinal Urinal # Voids 1 - Exam Inspection reveals a benign well padded bulky splint. There is no active bleeding or drainage. Neurovascular status is intact throughout the lower extremity. He had preoperative peripheral neuropathy and numbness. Calf is soft and nontender. Less than 2 second cap refill is present in all digits - Constitutional General appearance: Present: no acute distress - Psychiatric Psychiatric: Present: A&O x's 3, appropriate affect, intact judgment & insight - Labs CBC & Chem 7: 12/25/17 06:34 12/25/17 06:34 Labs: Abnormal Lab Results - Last 24 Hours (Table) 12/25/17 12/25/17 12/25/17 Range/Units 11:46 17:34 20:40 POC Glucose (mg/dL) 123 H 191 H 187 H (75-99) mg/dL 12/26/17 12/26/17 Range/Units 02:00 07:07 POC Glucose (mg/dL) 195 H 200 H (75-99) mg/dL Assessment and Plan (1) Charcot's joint of foot Narrative/Plan: He will continue with routine postop orthopedic protocol including pain management, wound care, PT, DVT prophylaxis and medical management. Expect that he will transfer to rehab Wednesday. Current Visit: Yes Status: Acute Priority: Medium Code(s): M14.679 - CHARCOT'S JOINT, UNSPECIFIED ANKLE AND FOOT SNOMED Code(s): 470290835 Time with Patient: Less than 30
[2017-12-26 11:38] LABS: Glucose,Whole Blood 235 mg/dL (75-99)
--- NOTE | 2017-12-26 12:04 | P.PN ---
Subjective This is a 77-year-old Left talonavicular fusion and Left biplanar midfoot osteotomy. Patient has history of neuropathy, denies pain currently. Denies numbness. Passing flatus, positive bowel movement this morning. Denies chest pain, palpitations or increasing shortness of breath. 12/25/2017 No overnight events 12/26/2017 No overnight events blood pressure is stable blood sugar is fairly well controlled in about 180s to 200s Objective - Vital Signs Vital signs: Vital Signs Temp 99.5 F 12/26/17 05:00 Pulse 83 12/26/17 08:35 Resp 16 12/26/17 08:35 BP 128/64 12/26/17 05:00 Pulse Ox 91 L 12/26/17 05:00 Intake & Output 12/25/17 12/26/17 12/26/17 18:59 06:59 18:59 Intake Total 240 860 Output Total 500 300 Balance -260 560 Intake: Oral 240 860 Output: Urine 500 300 Other: Voiding Method Urinal Urinal Urinal # Voids 1 - Exam PHYSICAL EXAM: VITAL SIGNS: As above GENERAL: Sitting up in bed, no acute distress HEENT: Conjunctivae normal. eyes normal. Oral mucosa moist NECK: No JVD. No thyroid enlargement. No LNs CARDIOVASCULAR: S1, S2 muffled. No murmur RESPIRATION: Breath sounds diminished in the bases. No rhonchi or crackles. No bronchial breathing. ABDOMEN: Soft, nontender . No guarding. no masses palpable. .Bowel sounds heard. LEGS: No edema. no swelling PSYCHIATRY: Alert and oriented -3, mood and affect normal. NERVOUS SYSTEM: Cranial N 2-12 grossly normal. Moves all 4 limbs. Diffuse weakness No focal deficits. EXTREMITY: Left lower extremity with splint clean dry and intact. digits warm. - Labs CBC & Chem 7: 12/25/17 06:34 12/25/17 06:34 Labs: Abnormal Lab Results - Last 24 Hours (Table) 12/25/17 12/25/17 12/26/17 Range/Units 17:34 20:40 02:00 POC Glucose (mg/dL) 191 H 187 H 195 H (75-99) mg/dL 12/26/17 12/26/17 Range/Units 07:07 11:37 POC Glucose (mg/dL) 200 H 235 H (75-99) mg/dL Assessment and Plan Plan: Assessment and Plan Assessment: 1. Charcot's foot, S/P Left talonavicular fusion and Left biplanar midfoot osteotomy 2. Diabetes mellitus type 2 3. Hypertension 4. Hyperlipidemia 5. Sleep apnea 6. BPH Plan: Continue current medication regime ,monitoring and symptomatic treatment. Pain management as per primary. Levemir increased, blood sugars elevated. Close monitoring of Accu-Cheks. GI and DVT prophylaxis in place. Social work assisting and subacute rehab placement.
[2017-12-26] MEDS: MULTIVITAMINS, THERA 1 EACH TAB PO SCH (12:40)
[2017-12-26 17:04] LABS: Glucose,Whole Blood 247 mg/dL (75-99)
[2017-12-26 20:25] LABS: Glucose,Whole Blood 260 mg/dL (75-99)
[2017-12-26] MEDS: ATORVASTATIN 20 MG TAB PO SCH (20:40)
[2017-12-26] MEDS: SENNOSIDES-DOCUSATE SODIUM 1 EACH TAB PO SCH (20:42)
[2017-12-26] MEDS: INSULIN DETEMIR 100 UNIT/ML 10 ML VIAL SQ SCH (21:17)
[2017-12-27] MEDS: SODIUM CHLORIDE 0.9% 1,000 ML IV SCH ×3 (04:04→23:53)
[2017-12-27] MEDS: metFORMIN 500 MG TAB PO SCH ×2 (08:05→20:46)
[2017-12-27] MEDS: glipiZIDE 5 MG TAB PO SCH (08:05)
[2017-12-27] MEDS: LISINOPRIL 10 MG TAB PO SCH (08:05)
[2017-12-27] MEDS: PANTOPRAZOLE 40 MG TABLET PO SCH (08:05)
[2017-12-27] MEDS: ENOXAPARIN 40 MG/0.4 ML SYRINGE SQ SCH (08:06)
[2017-12-27 08:15] LABS: Glucose,Whole Blood 177 mg/dL (75-99)
[2017-12-27] MEDS: LACTATED RINGERS 1,000 ML IV SCH (08:22)
[2017-12-27] MEDS: INSULIN ASPART 100 UNIT/ML 1 ML 10 ML VIAL SQ SCH ×4 (08:32→20:45)
[2017-12-27 11:32] LABS: Glucose,Whole Blood 108 mg/dL (75-99)
--- NOTE | 2017-12-27 11:51 | P.PN ---
Subjective This is a 77-year-old Left talonavicular fusion and Left biplanar midfoot osteotomy. Patient has history of neuropathy, denies pain currently. Denies numbness. Passing flatus, positive bowel movement this morning. Denies chest pain, palpitations or increasing shortness of breath. 12/25/2017 No overnight events 12/26/2017 No overnight events blood pressure is stable blood sugar is fairly well controlled in about 180s to 200s 12/27/2017 Blood sugars are better controlled today. Patient denied any pain Objective - Vital Signs Vital signs: Vital Signs Temp 98.9 F 12/27/17 05:00 Pulse 82 12/27/17 07:28 Resp 16 12/27/17 07:28 BP 140/64 12/27/17 05:00 Pulse Ox 91 L 12/27/17 05:00 Intake & Output 12/26/17 12/27/17 12/27/17 18:59 06:59 18:59 Intake Total 240 600 Output Total 400 Balance -160 600 Intake: Oral 240 600 Output: Urine 400 Other: Voiding Method Urinal Toilet Urinal Urinal # Voids 2 1 - Exam PHYSICAL EXAM: VITAL SIGNS: As above GENERAL: Sitting up in bed, no acute distress HEENT: Conjunctivae normal. eyes normal. Oral mucosa moist NECK: No JVD. No thyroid enlargement. No LNs CARDIOVASCULAR: S1, S2 muffled. No murmur RESPIRATION: Breath sounds diminished in the bases. No rhonchi or crackles. No bronchial breathing. ABDOMEN: Soft, nontender . No guarding. no masses palpable. .Bowel sounds heard. LEGS: No edema. no swelling PSYCHIATRY: Alert and oriented -3, mood and affect normal. NERVOUS SYSTEM: Cranial N 2-12 grossly normal. Moves all 4 limbs. Diffuse weakness No focal deficits. EXTREMITY: Left lower extremity with splint clean dry and intact. digits warm. - Labs CBC & Chem 7: 12/25/17 06:34 12/25/17 06:34 Labs: Abnormal Lab Results - Last 24 Hours (Table) 12/26/17 12/26/17 12/27/17 Range/Units 17:02 20:23 08:14 POC Glucose (mg/dL) 247 H 260 H 177 H (75-99) mg/dL 12/27/17 Range/Units 11:29 POC Glucose (mg/dL) 108 H (75-99) mg/dL Assessment and Plan Plan: Assessment and Plan Assessment: 1. Charcot's foot, S/P Left talonavicular fusion and Left biplanar midfoot osteotomy 2. Diabetes mellitus type 2 3. Hypertension 4. Hyperlipidemia 5. Sleep apnea 6. BPH Plan: Continue current medication regime ,monitoring and symptomatic treatment. Pain management as per primary. Levemir increased, blood sugars elevated. Close monitoring of Accu-Cheks. GI and DVT prophylaxis in place. Social work assisting and subacute rehab placement.
[2017-12-27] MEDS: MULTIVITAMINS, THERA 1 EACH TAB PO SCH (11:56)
--- NOTE | 2017-12-27 13:47 | P.PN ---
Subjective Progress Note Date: 12/27/17 Principal diagnosis: S/P Left talonavicular fusion and Left biplanar midfoot osteotomy Patient is seen at bedside today. He is postop day #5 from left talonavicular fusion and Left biplanar midfoot osteotomy. He has minimal pain at the surgical site as expected and denies any new complaints. He denies new numbness, tingling or calf pain. Review of systems is negative for fever, chills, chest pain, shortness of breath or other Objective - Vital Signs Vital signs: Vital Signs Temp 98.9 F 12/27/17 05:00 Pulse 82 12/27/17 07:28 Resp 16 12/27/17 07:28 BP 140/64 12/27/17 05:00 Pulse Ox 91 L 12/27/17 05:00 Intake & Output 12/26/17 12/27/17 12/27/17 18:59 06:59 18:59 Intake Total 240 600 240 Output Total 400 Balance -160 600 240 Intake: Oral 240 600 240 Output: Urine 400 Other: Voiding Method Urinal Toilet Urinal Urinal # Voids 2 1 4 - Exam Inspection reveals a benign well padded bulky splint. There is no active bleeding or drainage. Neurovascular status is intact throughout the lower extremity. He had preoperative peripheral neuropathy and numbness. Calf is soft and nontender. Less than 2 second cap refill is present in all digits - Constitutional General appearance: Present: no acute distress - Labs CBC & Chem 7: 12/25/17 06:34 12/25/17 06:34 Labs: Abnormal Lab Results - Last 24 Hours (Table) 12/26/17 12/26/17 12/27/17 Range/Units 17:02 20:23 08:14 POC Glucose (mg/dL) 247 H 260 H 177 H (75-99) mg/dL 12/27/17 Range/Units 11:29 POC Glucose (mg/dL) 108 H (75-99) mg/dL Assessment and Plan (1) Charcot's joint of foot Narrative/Plan: He will continue with routine postop orthopedic protocol including pain management, wound care, PT, DVT prophylaxis and medical management. Expect that he will transfer to rehab Wednesday. Current Visit: Yes Status: Acute Priority: Medium Code(s): M14.679 - CHARCOT'S JOINT, UNSPECIFIED ANKLE AND FOOT SNOMED Code(s): 482791314 Time with Patient: Less than 30
[2017-12-27 17:19] LABS: Glucose,Whole Blood 109 mg/dL (75-99)
[2017-12-27 20:31] LABS: Glucose,Whole Blood 221 mg/dL (75-99)
[2017-12-27] MEDS: ATORVASTATIN 20 MG TAB PO SCH (20:45)
[2017-12-27] MEDS: SENNOSIDES-DOCUSATE SODIUM 1 EACH TAB PO SCH (20:46)
[2017-12-27] MEDS: INSULIN DETEMIR 100 UNIT/ML 10 ML VIAL SQ SCH (21:28)
[2017-12-28 07:37] LABS: Glucose,Whole Blood 156 mg/dL (75-99)
[2017-12-28] MEDS: SODIUM CHLORIDE 0.9% 1,000 ML IV SCH ×2 (08:37→20:48)
[2017-12-28] MEDS: LACTATED RINGERS 1,000 ML IV SCH (08:37)
[2017-12-28] MEDS: INSULIN ASPART 100 UNIT/ML 1 ML 10 ML VIAL SQ SCH ×4 (08:41→20:56)
[2017-12-28] MEDS: ENOXAPARIN 40 MG/0.4 ML SYRINGE SQ SCH (08:42)
[2017-12-28] MEDS: metFORMIN 500 MG TAB PO SCH ×2 (08:42→20:55)
[2017-12-28] MEDS: PANTOPRAZOLE 40 MG TABLET PO SCH (08:42)
[2017-12-28] MEDS: glipiZIDE 5 MG TAB PO SCH (08:43)
[2017-12-28] MEDS: LISINOPRIL 10 MG TAB PO SCH (08:43)
--- NOTE | 2017-12-28 08:57 | P.DS ---
Providers Date of admission: 12/26/17 12:42 Expected date of discharge: 12/28/17 Attending physician: Bong Davis Consults: 12/22/17 13:56 Consult Physician Routine Consulting Provider: Dylan Cardona Consult Reason/Comments: post op medical management Do you want consulting provider notified?: Yes Primary care physician: Dylan Cardona - Discharge Diagnosis(es) (1) Charcot's joint of foot Patient was admitted to the OR on 12/22/2017 to undergo a left talonavicular fusion, left biplanar midfoot osteotomy. He had failed conservative measures as an outpatient and desired to proceed with elective surgery after given informed consent. He underwent the above procedure which he tolerated well without complication. Postoperative hospital course has remained without complication. On day of discharge he is afebrile, vital signs stable, labs within acceptable ranges, tolerating by mouth meds and diet, voiding without difficulty , positive flatus, denies abdominal pain or calf pain, pain is controlled on oral pain medication and has no new complaints. Wound is benign, neurovascular status is intact, calf is soft and nontender, abdomen soft and nontender. Review of systems is negative for numbness, tingling, fever, chills, chest pain , shortness breath, nausea, vomiting, dizziness, headaches, slurred speech or other. Current Visit: Yes Status: Acute Priority: Medium Procedures: Left talonavicular fusion, left biplanar midfoot osteotomy Patient Condition at Discharge: Good Plan - Discharge Summary Discharge Rx Participant: No New Discharge Prescriptions: New Aspirin 325 mg PO BID #60 tab Docusate [Colace] 100 mg PO BID #60 capsule HYDROcodone/APAP 5-325MG [Herron 5-325] 1 tab PO Q4HR PRN #42 tab PRN Reason: Pain Discontinued glipiZIDE [Glucotrol] 5 mg PO DAILY No Action Lisinopril [Zestril] 10 mg PO DAILY metFORMIN HCL 1,000 mg PO BID Simvastatin 40 mg PO HS Insulin Glargine,Hum.rec.anlog [Ko Rogers] 60 units SQ HS Discharge Medication List Lisinopril [Zestril] 10 mg PO DAILY 01/11/17 [History] Simvastatin 40 mg PO HS 01/11/17 [History] metFORMIN HCL 1,000 mg PO BID 01/11/17 [History] Insulin Glargine,Hum.rec.anlog [Ko Rogers] 60 units SQ HS 04/07/17 [ History] Aspirin 325 mg PO BID #60 tab 12/28/17 [Rx] Docusate [Colace] 100 mg PO BID #60 capsule 12/28/17 [Rx] HYDROcodone/APAP 5-325MG [Herron 5-325] 1 tab PO Q4HR PRN #42 tab 12/28/17 [Rx] Follow up Appointment(s)/Referral(s): Bong Davis MD [Medical Doctor] - 1 Week Activity/Diet/Wound Care/Special Instructions: Maintain splint keep clean and dry take meds as directed elevate leg non weightbear f/u with Dr. Davis in office Discharge Disposition: TRANSFER TO SNF/ECF
[2017-12-28 11:35] LABS: Glucose,Whole Blood 136 mg/dL (75-99)
--- NOTE | 2017-12-28 12:18 | P.PN ---
Subjective This is a 77-year-old Left talonavicular fusion and Left biplanar midfoot osteotomy. Patient has history of neuropathy, denies pain currently. Denies numbness. Passing flatus, positive bowel movement this morning. Denies chest pain, palpitations or increasing shortness of breath. 12/25/2017 No overnight events 12/26/2017 No overnight events blood pressure is stable blood sugar is fairly well controlled in about 180s to 200s 12/27/2017 Blood sugars are better controlled today. Patient denied any pain 12/28/2017 Patient will be resumed on metformin and glipizide and lisinopril can be continued patient to have medication to consideration was reviewed and patient is okay to be discharged from medical perspective. Objective - Vital Signs Vital signs: Vital Signs Temp 97.7 F 12/28/17 10:20 Pulse 85 12/28/17 07:23 Resp 16 12/28/17 07:23 BP 123/64 12/28/17 07:23 Pulse Ox 95 12/28/17 07:23 Intake & Output 12/27/17 12/28/17 12/28/17 18:59 06:59 18:59 Intake Total 240 960 Balance 240 960 Intake: Oral 240 960 Other: Voiding Method Urinal Toilet Toilet Urinal # Voids 4 1 - Exam PHYSICAL EXAM: VITAL SIGNS: As above GENERAL: Sitting up in bed, no acute distress HEENT: Conjunctivae normal. eyes normal. Oral mucosa moist NECK: No JVD. No thyroid enlargement. No LNs CARDIOVASCULAR: S1, S2 muffled. No murmur RESPIRATION: Breath sounds diminished in the bases. No rhonchi or crackles. No bronchial breathing. ABDOMEN: Soft, nontender . No guarding. no masses palpable. .Bowel sounds heard. LEGS: No edema. no swelling PSYCHIATRY: Alert and oriented -3, mood and affect normal. NERVOUS SYSTEM: Cranial N 2-12 grossly normal. Moves all 4 limbs. Diffuse weakness No focal deficits. EXTREMITY: Left lower extremity with splint clean dry and intact. digits warm. - Labs CBC & Chem 7: 12/25/17 06:34 12/25/17 06:34 Labs: Abnormal Lab Results - Last 24 Hours (Table) 12/27/17 12/27/17 12/28/17 Range/Units 17:17 20:28 07:34 POC Glucose (mg/dL) 109 H 221 H 156 H (75-99) mg/dL 12/28/17 Range/Units 11:34 POC Glucose (mg/dL) 136 H (75-99) mg/dL Assessment and Plan Plan: Assessment and Plan Assessment: 1. Charcot's foot, S/P Left talonavicular fusion and Left biplanar midfoot osteotomy 2. Diabetes mellitus type 2 3. Hypertension 4. Hyperlipidemia 5. Sleep apnea 6. BPH Plan: Continue current medication regime ,monitoring and symptomatic treatment. Pain management as per primary. Levemir increased, blood sugars elevated. Close monitoring of Accu-Cheks. GI and DVT prophylaxis in place. Social work assisting and subacute rehab placement.
[2017-12-28] MEDS: MULTIVITAMINS, THERA 1 EACH TAB PO SCH (12:39)
[2017-12-28 17:14] LABS: Glucose,Whole Blood 121 mg/dL (75-99)
[2017-12-28 20:10] LABS: Glucose,Whole Blood 220 mg/dL (75-99)
[2017-12-28] MEDS: SENNOSIDES-DOCUSATE SODIUM 1 EACH TAB PO SCH (20:55)
[2017-12-28] MEDS: ATORVASTATIN 20 MG TAB PO SCH (20:55)
[2017-12-28] MEDS: INSULIN DETEMIR 100 UNIT/ML 10 ML VIAL SQ SCH (20:56)
[2017-12-29 00:19] VITALS: RESP 16
[2017-12-29] MEDS: SODIUM CHLORIDE 0.9% 1,000 ML IV SCH (06:16)
[2017-12-29 07:19] LABS: Glucose,Whole Blood 101 mg/dL (75-99)
[2017-12-29] MEDS: INSULIN ASPART 100 UNIT/ML 1 ML 10 ML VIAL SQ SCH ×2 (07:55→12:12)
[2017-12-29] MEDS: ENOXAPARIN 40 MG/0.4 ML SYRINGE SQ SCH (07:56)
[2017-12-29] MEDS: PANTOPRAZOLE 40 MG TABLET PO SCH (07:56)
[2017-12-29] MEDS: glipiZIDE 5 MG TAB PO SCH (07:57)
[2017-12-29] MEDS: LISINOPRIL 10 MG TAB PO SCH (07:57)
[2017-12-29] MEDS: metFORMIN 500 MG TAB PO SCH (07:58)
[2017-12-29] MEDS: LACTATED RINGERS 1,000 ML IV SCH (08:57)
[2017-12-29 11:13] LABS: Glucose,Whole Blood 89 mg/dL (75-99)
--- NOTE | 2017-12-29 11:27 | P.PN ---
Subjective This is a 77-year-old Left talonavicular fusion and Left biplanar midfoot osteotomy. Patient has history of neuropathy, denies pain currently. Denies numbness. Passing flatus, positive bowel movement this morning. Denies chest pain, palpitations or increasing shortness of breath. 12/25/2017 No overnight events 12/26/2017 No overnight events blood pressure is stable blood sugar is fairly well controlled in about 180s to 200s 12/27/2017 Blood sugars are better controlled today. Patient denied any pain 12/28/2017 Patient will be resumed on metformin and glipizide and lisinopril can be continued patient to have medication to consideration was reviewed and patient is okay to be discharged from medical perspective. 12/29/2017 patient is awaiting insurance approval for discharge Objective - Vital Signs Vital signs: Vital Signs Temp 96.5 F L 12/29/17 07:38 Pulse 93 12/29/17 07:38 Resp 16 12/29/17 09:27 BP 109/60 12/29/17 07:38 Pulse Ox 93 L 12/29/17 07:38 Intake & Output 12/28/17 12/29/17 12/29/17 18:59 06:59 18:59 Intake Total 300 Balance 300 Intake: Oral 300 Other: Voiding Method Toilet Toilet # Voids 2 1 - Exam PHYSICAL EXAM: VITAL SIGNS: As above GENERAL: Sitting up in bed, no acute distress HEENT: Conjunctivae normal. eyes normal. Oral mucosa moist NECK: No JVD. No thyroid enlargement. No LNs CARDIOVASCULAR: S1, S2 muffled. No murmur RESPIRATION: Breath sounds diminished in the bases. No rhonchi or crackles. No bronchial breathing. ABDOMEN: Soft, nontender . No guarding. no masses palpable. .Bowel sounds heard. LEGS: No edema. no swelling PSYCHIATRY: Alert and oriented -3, mood and affect normal. NERVOUS SYSTEM: Cranial N 2-12 grossly normal. Moves all 4 limbs. Diffuse weakness No focal deficits. EXTREMITY: Left lower extremity with splint clean dry and intact. digits warm. - Labs CBC & Chem 7: 12/25/17 06:34 12/25/17 06:34 Labs: Abnormal Lab Results - Last 24 Hours (Table) 12/28/17 12/28/17 12/28/17 Range/Units 11:34 17:13 20:09 POC Glucose (mg/dL) 136 H 121 H 220 H (75-99) mg/dL 12/29/17 Range/Units 07:18 POC Glucose (mg/dL) 101 H (75-99) mg/dL Assessment and Plan Plan: Assessment and Plan Assessment: 1. Charcot's foot, S/P Left talonavicular fusion and Left biplanar midfoot osteotomy 2. Diabetes mellitus type 2 3. Hypertension 4. Hyperlipidemia 5. Sleep apnea 6. BPH Plan: Patient can be discharged from medical perspective patient was resumed on the oral hypoglycemic agents.
[2017-12-29] MEDS: MULTIVITAMINS, THERA 1 EACH TAB PO SCH (12:10)
[2017-12-29 12:25] VITALS: BP 116/63; PULSE 89; TEMP 97.5
--- NOTE | 2017-12-29 14:10 | P.PN ---
Subjective Progress Note Date: 12/29/17 Principal diagnosis: S/P Left talonavicular fusion and Left biplanar midfoot osteotomy Patient is seen at bedside today. He is postop day #7 from left talonavicular fusion and Left biplanar midfoot osteotomy. He has minimal pain at the surgical site as expected and denies any new complaints. He denies new numbness, tingling or calf pain. Review of systems is negative for fever, chills, chest pain, shortness of breath or other Objective - Vital Signs Vital signs: Vital Signs Temp 97.5 F L 12/29/17 12:24 Pulse 89 12/29/17 12:24 Resp 16 12/29/17 12:24 BP 116/63 12/29/17 12:24 Pulse Ox 95 12/29/17 12:24 Intake & Output 12/28/17 12/29/17 12/29/17 18:59 06:59 18:59 Intake Total 300 Balance 300 Intake: Oral 300 Other: Voiding Method Toilet Toilet # Voids 2 1 - Exam Inspection reveals a benign well padded bulky splint. There is no active bleeding or drainage. Neurovascular status is intact throughout the lower extremity. He had preoperative peripheral neuropathy and numbness. Calf is soft and nontender. Less than 2 second cap refill is present in all digits - Constitutional General appearance: Present: no acute distress - Labs CBC & Chem 7: 12/25/17 06:34 12/25/17 06:34 Labs: Abnormal Lab Results - Last 24 Hours (Table) 12/28/17 12/28/17 12/29/17 Range/Units 17:13 20:09 07:18 POC Glucose (mg/dL) 121 H 220 H 101 H (75-99) mg/dL Assessment and Plan (1) Charcot's joint of foot Narrative/Plan: He is pending transfer to [facility]. He will continue with routine postop orthopedic protocol including pain management, wound care, PT, DVT prophylaxis and medical management. Current Visit: Yes Status: Acute Priority: Medium Code(s): M14.679 - CHARCOT'S JOINT, UNSPECIFIED ANKLE AND FOOT SNOMED Code(s): 513753147 Time with Patient: Less than 30
[2017-12-29 19:50] LABS: Hemoglobin A1C 10.5 % (4.0-6.0)
== END 2017-12-29 14:15 | DRG 982 ==
LOC: OR 08:20 → 5MS5E 14:10 → OR 12-24 14:47 → 5MS5E 12-24 14:48 → OBSVTOIN 12-26 12:42
PROVIDERS: ADMIT Orthopaedic Surgery; ATTEND Orthopaedic Surgery
PROC: 0SGJ04Z Fusion of Left Tarsal Joint with Internal Fixation Device, Open Approach (ICD-10-PCS; principal; 2017-12-26)
PROC: 0QBP0ZZ Excision of Left Metatarsal, Open Approach (ICD-10-PCS; 2017-12-26)
DX: E11.610 Type 2 diabetes mellitus with diabetic neuropathic arthropathy (principal); L97.429 Non-pressure chronic ulcer of left heel and midfoot with unspecified severity; E11.42 Type 2 diabetes mellitus with diabetic polyneuropathy; E11.621 Type 2 diabetes mellitus with foot ulcer; E78.5 Hyperlipidemia, unspecified; G47.30 Sleep apnea, unspecified; I10 Essential (primary) hypertension; M19.90 Unspecified osteoarthritis, unspecified site; N40.0 Benign prostatic hyperplasia without lower urinary tract symptoms; Z80.0 Family history of malignant neoplasm of digestive organs; Z83.3 Family history of diabetes mellitus; Z87.891 Personal history of nicotine dependence
CPT/HCPCS: 80048; 80053; 82306; 83036; 85025

== ENCOUNTER 2018-01-06 15:25 | Inpatient (IN) | payer MEDICARE ==
[2018-01-06] MEDS ORDERED: VANCOMYCIN IV PER PHARMACY 1 EACH MISC MISCELLANE PRN (15:36)
[2018-01-06] MEDS ORDERED: HYDROcodone/APAP 5-325MG 1 EACH TAB PO PRN ×2 (15:40)
[2018-01-06 17:55] LABS: Glucose,Whole Blood 137 mg/dL (75-99)
[2018-01-06 18:11] LABS: Basophils % (A) 0 %; Eosinophils # (A) 0.2 k/uL (0-0.7); Eosinophils % (A) 2 %; HCT 35.5 % (39.0-53.0); HGB 11.2 gm/dL (13.0-17.5); Hypochromasia Slight; Lymphocytes # (A) 1.6 k/uL (1.0-4.8); Lymphocytes % (A) 15 %; MCH 27.8 pg (25.0-35.0); MCHC 31.7 g/dL (31.0-37.0); MCV 87.9 fL (80.0-100.0); Mean Platelet Volume 6.8; Monocytes # (A) 0.5 k/uL (0-1.0); Monocytes % (A) 5 %; Neutrophils % (A) 77 %; Platelet Count 572 k/uL (150-450); RBC 4.04 m/uL (4.30-5.90); RDW 15.1 % (11.5-15.5); WBC 10.5 k/uL (3.8-10.6)
[2018-01-06 18:23] LABS: Albumin 3.4 g/dL (3.5-5.0); C Reactive Protein 51.1 mg/L (<10.0); Calcium 9.7 mg/dL (8.4-10.2); Potassium 5.6 mmol/L (3.5-5.1); Total Bilirubin 0.5 mg/dL (0.2-1.3); Total Protein 7.2 g/dL (6.3-8.2)
[2018-01-06] MEDS ORDERED: VANCOMYCIN 1,750 MG in SODIUM CHLORIDE 0.9% 500 ML IVPB ONE (19:00)
[2018-01-06 20:38] LABS: Glucose,Whole Blood 181 mg/dL (75-99)
[2018-01-06] MEDS: DOCUSATE 100 MG CAP PO SCH (21:15)
[2018-01-06] MEDS: ATORVASTATIN 20 MG TAB PO SCH (21:15)
[2018-01-06] MEDS: INSULIN DETEMIR 100 UNIT/ML 10 ML VIAL SQ SCH (22:06)
[2018-01-06] MEDS: SODIUM CHLORIDE 0.9% 1,000 ML IV SCH (22:07)
[2018-01-06 22:21] LABS: Erythrocyte Sedimentation Rate 111 mm/hr (0-15)
--- NOTE | 2018-01-06 22:29 | CONS ---
CONSULTATION REASON FOR CONSULTATION: Advice regarding diabetes mellitus and other medical issues, requested by Dr. Davis. HISTORY OF PRESENT ILLNESS: This 77-year-old gentleman with a past medical history of diabetes mellitus, hypertension, hyperlipidemia, history of DJD, history of prostate disorder, history of adenoidectomy, being followed by Dr. Dylan Cardona in the outpatient setting, previously had left talonavicular fusion and left biplanar mid foot osteotomy for Charcot foot. Patient was sent to [facility] for rehab, but subsequently patient was noted to have infection. Patient is admitted for further evaluation and treatment. Infectious disease evaluation is pending at this time. There is no history of any fever, rigor or chills. No history of headache, loss of consciousness, seizures at this time. PAST MEDICAL HISTORY: 1. History of recent foot surgery. 2. History of diabetes mellitus, type 2. 3. Hyperlipidemia. 4. DJD. 5. History of prostate disorder. 6. History of sleep apnea. HOME MEDICATIONS: 1. Metformin 1000 mg p.o. b.i.d. 2. Glucotrol 5 mg p.o. daily. 3. Simvastatin 40 mg at bedtime. 4. Zestril 10 mg p.o. daily. 5. Toujeo 60 mg at bedtime. 6. [place] 1 tablet q.4 p.r.n. 7. Colace 100 mg b.i.d. 8. Ecotrin 81 mg p.o. daily. ALLERGIES: NONE. FAMILY HISTORY: History of colon cancer in the family. SOCIAL HISTORY: Previous history of smoking. Occasional alcohol intake. REVIEW OF SYSTEMS: ENT: No diminished hearing. No diminished vision. CARDIOVASCULAR SYSTEM: No angina, palpitations. RESPIRATORY SYSTEM: No cough, hemoptysis. GI: No nausea, vomiting. : No dysuria or retention. NERVOUS SYSTEM: No numbness, weakness. ALLERGY/IMMUNOLOGY: No asthma, hayfever. MUSCULOSKELETAL: As mentioned earlier. HEMATOLOGY/ONCOLOGY: No history of anemia. ENDOCRINE: Diabetes mellitus. CONSTITUTIONAL: As mentioned earlier. DERMATOLOGY: As mentioned earlier. RHEUMATOLOGY: Negative. PSYCHIATRY: Negative. PHYSICAL EXAMINATION: Patient is alert, oriented x3. The pulse is 77, blood pressure 102/59, respirations 16, temperature 98.2, pulse ox 96% on room air. HEENT: Conjunctivae normal. Oral mucosa moist. NECK: No jugular venous distention. No carotid bruit. No lymph node enlargement. CARDIOVASCULAR SYSTEM: S1, S2 muffled. No S3. No S4. RESPIRATORY SYSTEM: Breath sounds diminished at the bases. No rhonchi. No crackles. ABDOMEN: Soft, non-tender. No mass palpable. No hepatosplenomegaly. LEGS: Status post left foot surgery. NERVOUS SYSTEM: Higher functions as mentioned earlier. Moves all 4 limbs. No focal motor or sensory deficit. LYMPHATICS: No lymph node palpable in neck, axillae or groin. SKIN: No ulcer, rash, bleeding. LABS: WBC 10.5, hemoglobin 11.2, sodium 133, potassium 5.6. ASSESSMENT: 1. Left foot infection. 2. Status post left talonavicular fusion, left biplanar mid foot osteotomy for Charcot foot. 3. Diabetes mellitus, type 2. 4. Hypertension. 5. Hyperlipidemia. 6. Sleep apnea. 7. Benign prostatic hypertrophy. 8. Mild hyponatremia. 9. Hypokalemia. RECOMMENDATIONS AND DISCUSSION: In this 77-year-old gentleman who presented with multiple complex medical issues, we will monitor the patient closely, continue the current medications, continue with symptomatic treatment. Vancomycin has been initiated. Otherwise will obtain the cultures. Rocephin has been added to the current regimen. Will monitor blood sugars closely. Initiate home medications. DVT prophylaxis. Will closely monitor along with Orthopedic Surgery. Further recommendations to follow. See orders for further details. We will also monitor the potassium and creatinine. MMODL / IJN: [id number] /
[2018-01-07 00:55] LABS: Appearance,Urine Clear (Clear); Bilirubin,Urine Negative (Negative); Blood,Urine Negative (Negative); Color,Urine Yellow; Glucose,Urine (UA) Negative (Negative); Ketones,Urine Negative (Negative); Leukocyte Esterase,Urine Negative (Negative); Nitrite,Urine Negative (Negative); Protein,Urine Trace (Negative); Specific Gravity,Urine 1.015 (1.001-1.035); Urobilinogen,Urine <2.0 mg/dL (<2.0)
[2018-01-07 07:08] LABS: Glucose,Whole Blood 189 mg/dL (75-99)
[2018-01-07 07:47] LABS: Anion Gap 14 mmol/L; Blood Urea Nitrogen 24 mg/dL (9-20); Calcium 9.5 mg/dL (8.4-10.2); Carbon Dioxide 22 mmol/L (22-30); Chloride 99 mmol/L (98-107); Glucose 180 mg/dL (74-99); Potassium 5.7 mmol/L (3.5-5.1); Sodium 135 mmol/L (137-145)
[2018-01-07] MEDS ORDERED: VANCOMYCIN 1,500 MG in SODIUM CHLORIDE 0.9% 250 ML IVPB SCH (08:00)
[2018-01-07] MEDS: DOCUSATE 100 MG CAP PO SCH ×2 (08:12→21:52)
[2018-01-07] MEDS: INSULIN ASPART 100 UNIT/ML 1 ML 10 ML VIAL SQ SCH ×4 (08:12→21:50)
[2018-01-07] MEDS: glipiZIDE 5 MG TAB PO SCH (08:12)
[2018-01-07] MEDS: metFORMIN 500 MG TAB PO SCH ×2 (08:12→17:22)
[2018-01-07] MEDS ORDERED: LISINOPRIL 10 MG TAB PO SCH (09:00)
[2018-01-07] MEDS ORDERED: SODIUM POLYSTYRENE SULFONATE 15 GM/60 ML BOTTLE PO STA (09:45)
[2018-01-07 11:05] LABS: Glucose,Whole Blood 186 mg/dL (75-99)
--- NOTE | 2018-01-07 13:17 | P.HPOR ---
History of Present Illness H&P Date: 01/07/18 Chief Complaint: Left foot infection The patient is a pleasant 77-year-old man who presented to our office yesterday for a postop visit on his left foot. He is status post left midfoot osteotomy and talonavicular fusion on 12/22/2017. The patient was transferred to [facility] for skilled rehab postoperatively. The patient was in a bulky Mathews splint. The patient does have a history of diabetes. Upon removing the splint in the office yesterday was found that the patient had drainage, redness, and swelling to the incision sites. There is a large wound to the dorsal aspect of the foot that is weepy. It was decided at that time the patient should be admitted to the hospital for IV antibiotics and infectious disease evaluation. The patient was placed on nothing by mouth status last night for possible I&D today. The patient was started on vancomycin and Rocephin until evaluation by infectious disease. Today, the patient states that he is feeling well. He denies fever, chills, rigors, shortness breath, abdominal pain, chest pain at this time. Review of Systems Constitutional: Denies chills, Denies fatigue, Denies fever Cardiovascular: Denies chest pain, Denies shortness of breath Respiratory: Denies cough Gastrointestinal: Denies diarrhea, Denies nausea, Denies vomiting Musculoskeletal: left: foot pain, foot swelling Integumentary: Reports wounds (Left foot) Past Medical History Past Medical History: Cancer, Diabetes Mellitus, Hyperlipidemia, Osteoarthritis (OA), Prostate Disorder, Sleep Apnea/CPAP/BIPAP Additional Past Medical History / Comment(s): doesn't use CPAP, hx. basal cell skin cancer on nose, finished in wound care center couple weeks ago for wound left foot but then had sx 12/22/17 and pt stated now has infection to lt foot" , neuropathy -feet. History of Any Multi-Drug Resistant Organisms: None Reported Past Surgical History: Adenoidectomy, Appendectomy, Back Surgery, Orthopedic Surgery, Tonsillectomy Additional Past Surgical History / Comment(s): ROTATOR CUFF BILAT SHOULDERS, BACK SURGERY FUSION L4-5 2014, 12/22/17 lt foot sx for charcot foot Past Anesthesia/Blood Transfusion Reactions: No Reported Reaction Smoking Status: Former smoker - Past Family History Mother Family Medical History: Cancer Additional Family Medical History / Comment(s): COLON CANCER Father Family Medical History: Diabetes Mellitus Medications and Allergies Home Medications Medication Instructions Recorded Confirmed Type Lisinopril [Zestril] 10 mg PO DAILY 01/11/17 01/06/18 History Simvastatin 40 mg PO HS 01/11/17 01/06/18 History metFORMIN HCL 1,000 mg PO BID 01/11/17 01/06/18 History Insulin Glargine,Hum.rec.anlog 60 units SQ HS 04/07/17 01/06/18 History [Toujeo Solostar] Docusate [Colace] 100 mg PO BID #60 capsule 12/28/17 01/06/18 Rx HYDROcodone/APAP 5-325MG [[place] 1 tab PO Q4HR PRN #42 tab 12/28/17 01/06/18 Rx 5-325] glipiZIDE [Glucotrol] 5 mg PO DAILY tab 12/28/17 01/06/18 Rx Aspirin EC [Ecotrin Low Dose] 81 mg PO DAILY 01/06/18 01/06/18 History Allergies Allergy/AdvReac Type Severity Reaction Status Date / Time No Known Allergies Allergy Verified 01/06/18 18:53 Physical Examination The patient is a 77-year-old man who is in no acute distress. He is alert and oriented 3. Exam of the left foot reveals a wound to the dorsal aspect of the foot near the great toe. Incision sites are weepy and red. There is a large amount of serosanguineous and purulent drainage on the dressing. The patient is able to wiggle his toes slightly. Neurological and circulatory status is intact. Results - Labs Labs: Abnormal Lab Results - Last 24 Hours (Table) 01/06/18 01/06/18 01/06/18 Range/Units 17:49 17:49 17:53 RBC 4.04 L (4.30-5.90) m/uL Hgb 11.2 L (13.0-17.5) gm/dL Hct 35.5 L (39.0-53.0) % Plt Count 572 H (150-450) k/uL Neutrophils # 8.0 H (1.3-7.7) k/uL ESR 111 H (0-15) mm/hr Sodium 133 L (137-145) mmol/L Potassium 5.6 H (3.5-5.1) mmol/L Chloride 97 L (98-107) mmol/L Carbon Dioxide 21 L (22-30) mmol/L BUN 28 H (9-20) mg/dL Glucose 138 H (74-99) mg/dL POC Glucose (mg/dL) 137 H (75-99) mg/dL C-Reactive Protein 51.1 H (<10.0) mg/L Albumin 3.4 L (3.5-5.0) g/dL Urine Protein (Negative) 01/06/18 01/07/18 01/07/18 Range/Units 20:37 00:45 06:50 RBC (4.30-5.90) m/uL Hgb (13.0-17.5) gm/dL Hct (39.0-53.0) % Plt Count (150-450) k/uL Neutrophils # (1.3-7.7) k/uL ESR (0-15) mm/hr Sodium 135 L (137-145) mmol/L Potassium 5.7 H (3.5-5.1) mmol/L Chloride (98-107) mmol/L Carbon Dioxide (22-30) mmol/L BUN 24 H (9-20) mg/dL Glucose 180 H (74-99) mg/dL POC Glucose (mg/dL) 181 H (75-99) mg/dL C-Reactive Protein (<10.0) mg/L Albumin (3.5-5.0) g/dL Urine Protein Trace H (Negative) 01/07/18 01/07/18 Range/Units 07:07 11:04 RBC (4.30-5.90) m/uL Hgb (13.0-17.5) gm/dL Hct (39.0-53.0) % Plt Count (150-450) k/uL Neutrophils # (1.3-7.7) k/uL ESR (0-15) mm/hr Sodium (137-145) mmol/L Potassium (3.5-5.1) mmol/L Chloride (98-107) mmol/L Carbon Dioxide (22-30) mmol/L BUN (9-20) mg/dL Glucose (74-99) mg/dL POC Glucose (mg/dL) 189 H 186 H (75-99) mg/dL C-Reactive Protein (<10.0) mg/L Albumin (3.5-5.0) g/dL Urine Protein (Negative) H & H 01/06/18 Range/Units 17:49 Hgb 11.2 L (13.0-17.5) gm/dL Hct 35.5 L (39.0-53.0) % Result Diagrams: 01/06/18 17:49 01/07/18 06:50 Assessment and Plan (1) Left foot infection Current Visit: Yes Status: Acute Code(s): L08.9 - LOCAL INFECTION OF THE SKIN AND SUBCUTANEOUS TISSUE, UNSP SNOMED Code(s): 281129321 Plan: The clinical findings were discussed with the patient and the patient's . The case was discussed with Dr. Davis. He will continue on vancomycin and Rocephin until seen by infectious disease. Infectious disease, Dr. Melendez, has been consulted. Internal medicine is also on consult. Wound cultures and lab work was obtained yesterday. The patient will remain nothing by mouth today. He will undergo a left foot I&D with possible wound VAC application today. A prescription for a cam boot was placed on the chart today. We will continue to follow patient closely and make further recommendations as needed.
--- NOTE | 2018-01-07 16:42 | PN ---
PROGRESS NOTE DATE OF SERVICE: 01/07/2018 This 77-year-old gentleman who was admitted with a left foot infection is being closely monitored. No chest pain. No palpitations. No fever. The patient started on broad- spectrum IV antibiotics. PHYSICAL EXAM: Alert and oriented x3. Pulse 77, blood pressure 121/56, respirations 22, temperature 98.2, pulse ox 98% on room air. HEENT: Conjunctivae normal. Oral mucosa moist. NECK: No jugular venous distention. No carotid bruits. No lymph node enlargement. CARDIOVASCULAR: S1, S2 muffled. RESPIRATORY: Breath sounds diminished in the bases. No rhonchi. No crackles. ABDOMEN: Soft, nontender. LEGS: Left foot infection. NERVOUS SYSTEM: No focal deficits. LABS: Sodium 135, potassium 5.7. ASSESSMENT: 1. Left foot infection. 2. Status post left talonavicular fusion, left biplanar mid foot osteotomy for Charcot foot. 3. Diabetes mellitus type 2. 4. Mild hyponatremia. 5. Mild hyperkalemia. 6. Hypertension. 7. Hyperlipidemia. 8. Sleep apnea. 9. Benign prostatic hypertrophy. RECOMMENDATION AND DISCUSSION: Continue current medical management, continue symptomatic treatment. Hold CARROL inhibitors. Monitor blood pressure closely. I would recommend Kayexalate and repeat labs. Continue to monitor. Low potassium diet. Further recommendations to follow. MMODL / IJN: [id number] /
--- NOTE | 2018-01-07 17:01 | P.CONS ---
History of Present Illness - Reason for Consult Consult date: 01/07/18 - History of Present Illness 77 year old male presents to Hospital after being evaluated by orthopedics because of difficulties with his left foot. The patient has a known history of a Charcot foot to the left side. The following wound healing center for many months. 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 However the patient had significant deformity to the foot and he was sent to the orthopedic foot and ankle specialist and he has not been taking to the operating room on 2017 for the midfoot osteotomy and talonavicular fusion. Surgery went well but is now presenting with swelling erythema and some drainage to the site. Pleasant and relates unfortunately he is not having much pain is 9 high-grade fever chills or rigors. Infectious disease was requested regarding antibiotic therapy. Review of Systems HEENT:Denies headache or acute visual change. Denies sinus or mouth discomforts. Denies neck stiffness or pain. Denies significant oral cavity pain. Denies difficulty on swallowing. Lungs: Denies significant shortness of breath, cough, sputum production, or hemoptysis. Cardiovascular: Denies significant shortness of breath, chest pain, chest wall pain, orthopnea, dyspnea on exertion, syncope Gastrointestinal:Denies nausea, vomiting, diarrhea, constipation, hematemesis, melena, hematochezia. No no significant change of bowel habit noticed. Musculoskeletal: denies significant myalgias or arthralgias. No new joint swelling. Denies new back pain. Skin: Ulcer as per HPI Neuro: Denies headache or visual change. Denies any new onset weakness or difficulty with ambulation. Denies falls or seizures. Does have neuropathy Psychiatric:Denies anxiety or depression. Endocrine: Some fatigue but no severe weight loss Past Medical History Past Medical History: Cancer, Diabetes Mellitus, Hyperlipidemia, Osteoarthritis (OA), Prostate Disorder, Sleep Apnea/CPAP/BIPAP Additional Past Medical History / Comment(s): doesn't use CPAP, hx. basal cell skin cancer on nose, finished in wound care center couple weeks ago for wound left foot but then had sx 12/22/17 and pt stated now has infection to lt foot" , neuropathy -feet. History of Any Multi-Drug Resistant Organisms: None Reported Past Surgical History: Adenoidectomy, Appendectomy, Back Surgery, Orthopedic Surgery, Tonsillectomy Additional Past Surgical History / Comment(s): ROTATOR CUFF BILAT SHOULDERS, BACK SURGERY FUSION L4-5 2014, 12/22/17 lt foot sx for charcot foot Past Anesthesia/Blood Transfusion Reactions: No Reported Reaction Additional Psychological History / Comment(s): Lives a significant other in [place] the also have a home in [place]. Retired. Stopped smoking in 1993. No significant alcohol use. No recreational drug use. No experience. No extensive travel. No animal exposures Smoking Status: Former smoker - Past Family History Mother Family Medical History: Cancer Additional Family Medical History / Comment(s): COLON CANCER Father Family Medical History: Diabetes Mellitus Medications and Allergies Home Medications and Allergies Comment(s): Current Medications Hydrocodone Bitart/Acetaminophen (Benton 5-325) 1 each PO Q4HR PRN PRN Reason: Pain Scale 1 to 5 Hydrocodone Bitart/Acetaminophen (Benton 5-325) 2 each PO Q6HR PRN PRN Reason: Pain Scale 6 to 10 Atorvastatin Calcium (Lipitor) 20 mg PO [facility] Last Admin: 01/06/18 21:15 Dose: 20 mg Docusate Sodium (Colace) 100 mg PO BID [facility] Last Admin: 01/07/18 08:12 Dose: Not Given Glipizide (Glucotrol) 5 mg PO DAILY [facility] Last Admin: 01/07/18 08:12 Dose: Not Given Sodium Chloride (Saline 0.9%) 1,000 mls @ 50 mls/hr IV .Q20H [facility] Last Admin: 01/06/18 22:07 Dose: 50 mls/hr Vancomycin HCl 1,500 mg/ (Sodium Chloride) 250 mls @ 125 mls/hr IVPB Q12H [facility] Piperacillin/Tazobactam/ (Dextrose 3.375 gm/ IV Solution) 50 mls @ 12.5 mls/hr IVPB Q8HR [facility] Insulin Aspart (Novolog) 0 unit SQ [facility]; Protocol Last Admin: 01/07/18 12:28 Dose: Not Given Insulin Detemir (Levemir) 60 unit SQ [facility] Last Admin: 01/06/18 22:06 Dose: 60 unit Metformin HCl (Glucophage) 1,000 mg PO BID-W/MEALS [facility] Last Admin: 01/07/18 08:12 Dose: Not Given Home Medications Medication Instructions Recorded Confirmed Type Lisinopril [Zestril] 10 mg PO DAILY 01/11/17 01/06/18 History Simvastatin 40 mg PO HS 01/11/17 01/06/18 History metFORMIN HCL 1,000 mg PO BID 01/11/17 01/06/18 History Insulin Glargine,Hum.rec.anlog 60 units SQ HS 04/07/17 01/06/18 History [Toujeo Solostar] Docusate [Colace] 100 mg PO BID #60 capsule 12/28/17 01/06/18 Rx HYDROcodone/APAP 5-325MG [Benton 1 tab PO Q4HR PRN #42 tab 12/28/17 01/06/18 Rx 5-325] glipiZIDE [Glucotrol] 5 mg PO DAILY tab 12/28/17 01/06/18 Rx Aspirin EC [Ecotrin Low Dose] 81 mg PO DAILY 01/06/18 01/06/18 History Allergies Allergy/AdvReac Type Severity Reaction Status Date / Time No Known Allergies Allergy Verified 01/06/18 18:53 Physical Exam Vitals: Vital Signs Temp Pulse Resp BP Pulse Ox 01/07/18 16:30 77 14 01/07/18 12:50 98.1 F 77 22 121/56 92 L 01/07/18 05:05 97.6 F 52 L 16 121/56 93 L 01/06/18 23:30 16 01/06/18 20:53 98.2 F 77 16 108/59 96 01/06/18 17:37 97.5 F L 98 18 120/58 98 Intake and Output 01/07/18 01/07/18 01/07/18 06:59 14:59 22:59 Intake Total 520 Output Total 1500 Balance 520 -1500 Intake: Intake, IV Titration 400 Amount Sodium Chloride 0.9% 1, 400 000 ml @ 50 mls/hr IV . Q20H [facility] Rx#:[id number] Oral 120 Output: Urine 1500 Other: Voiding Method Toilet Toilet Toilet Urinal Urinal Bedside Commode # Voids 2 Weight 97.069 kg Pleasant 77-year-old male who is comfortable at this time who is not in acute distress HEENT: Anicteric conjunctiva are pink and moist nasal mucosa grossly intact without significant lesions, there is no thrush. Neck: The neck is supple without significant lymphadenopathy or thyromegaly. Lungs: Good bilateral air entry without significant crackles or wheezing. There is no significant bronchial sounds. There is no egophony or dullness. Heart: Regular rate and rhythm with an audible S1-S2, no S3 no S4. There is no significant murmur click or rub, PMI was nondisplaced. Abdomen: Positive bowel sounds soft and nontender without palpable masses or organomegaly. There was no guarding or rebound. Extremities: The upper extremities have excellent pulses they are symmetric, no significant petechiae or telangiectasia. No splinter hemorrhages were noted. Right lower extremity without abnormalities. The left foot is evaluated. The surgical wounds have evidence of some erythema some drainage some tenderness no patrick crepitance or fluctuance. There is minimal erythema ascends. No lymphadenopathy in the left groin and no other abnormal lymph nodes are noted Neuro: Awake alert oriented to person place and time. There are no acute new gross focal sensory motor deficits except his peripheral neuropathy especially at the feet Results CBC & Chem 7: 01/06/18 17:49 01/07/18 06:50 Labs: Abnormal Lab Results - Last 24 Hours (Table) 01/06/18 01/06/18 01/06/18 Range/Units 17:49 17:49 17:53 RBC 4.04 L (4.30-5.90) m/uL Hgb 11.2 L (13.0-17.5) gm/dL Hct 35.5 L (39.0-53.0) % Plt Count 572 H (150-450) k/uL Neutrophils # 8.0 H (1.3-7.7) k/uL ESR 111 H (0-15) mm/hr Sodium 133 L (137-145) mmol/L Potassium 5.6 H (3.5-5.1) mmol/L Chloride 97 L (98-107) mmol/L Carbon Dioxide 21 L (22-30) mmol/L BUN 28 H (9-20) mg/dL Glucose 138 H (74-99) mg/dL POC Glucose (mg/dL) 137 H (75-99) mg/dL C-Reactive Protein 51.1 H (<10.0) mg/L Albumin 3.4 L (3.5-5.0) g/dL Urine Protein (Negative) 01/06/18 01/07/18 01/07/18 Range/Units 20:37 00:45 06:50 RBC (4.30-5.90) m/uL Hgb (13.0-17.5) gm/dL Hct (39.0-53.0) % Plt Count (150-450) k/uL Neutrophils # (1.3-7.7) k/uL ESR (0-15) mm/hr Sodium 135 L (137-145) mmol/L Potassium 5.7 H (3.5-5.1) mmol/L Chloride (98-107) mmol/L Carbon Dioxide (22-30) mmol/L BUN 24 H (9-20) mg/dL Glucose 180 H (74-99) mg/dL POC Glucose (mg/dL) 181 H (75-99) mg/dL C-Reactive Protein (<10.0) mg/L Albumin (3.5-5.0) g/dL Urine Protein Trace H (Negative) 01/07/18 01/07/18 Range/Units 07:07 11:04 RBC (4.30-5.90) m/uL Hgb (13.0-17.5) gm/dL Hct (39.0-53.0) % Plt Count (150-450) k/uL Neutrophils # (1.3-7.7) k/uL ESR (0-15) mm/hr Sodium (137-145) mmol/L Potassium (3.5-5.1) mmol/L Chloride (98-107) mmol/L Carbon Dioxide (22-30) mmol/L BUN (9-20) mg/dL Glucose (74-99) mg/dL POC Glucose (mg/dL) 189 H 186 H (75-99) mg/dL C-Reactive Protein (<10.0) mg/L Albumin (3.5-5.0) g/dL Urine Protein (Negative) Laboratory Results WBC 10.5 k/uL (3.8-10.6) 01/06/18 17:49 RBC 4.04 m/uL (4.30-5.90) L 01/06/18 17:49 Hgb 11.2 gm/dL (13.0-17.5) L 01/06/18 17:49 Hct 35.5 % (39.0-53.0) L 01/06/18 17:49 MCV 87.9 fL (80.0-100.0) 01/06/18 17:49 MCH 27.8 pg (25.0-35.0) 01/06/18 17:49 MCHC 31.7 g/dL (31.0-37.0) 01/06/18 17:49 RDW 15.1 % (11.5-15.5) 01/06/18 17:49 Plt Count 572 k/uL (150-450) H 01/06/18 17:49 Neutrophils % 77 % 01/06/18 17:49 Lymphocytes % 15 % 01/06/18 17:49 Monocytes % 5 % 01/06/18 17:49 Eosinophils % 2 % 01/06/18 17:49 Basophils % 0 % 01/06/18 17:49 Neutrophils # 8.0 k/uL (1.3-7.7) H 01/06/18 17:49 Lymphocytes # 1.6 k/uL (1.0-4.8) 01/06/18 17:49 Monocytes # 0.5 k/uL (0-1.0) 01/06/18 17:49 Eosinophils # 0.2 k/uL (0-0.7) 01/06/18 17:49 Basophils # 0.0 k/uL (0-0.2) 01/06/18 17:49 Hypochromasia Slight 01/06/18 17:49 ESR 111 mm/hr (0-15) H 01/06/18 17:49 Sodium 135 mmol/L (137-145) L 01/07/18 06:50 Potassium 5.7 mmol/L (3.5-5.1) H 01/07/18 06:50 Chloride 99 mmol/L (98-107) 01/07/18 06:50 Carbon Dioxide 22 mmol/L (22-30) 01/07/18 06:50 Anion Gap 14 mmol/L 01/07/18 06:50 BUN 24 mg/dL (9-20) H 01/07/18 06:50 Creatinine 0.89 mg/dL (0.66-1.25) 01/07/18 06:50 Est GFR (CKD-EPI)AfAm >90 (>60 ml/min/1.73 sqM) 01/07/18 06:50 Est GFR (CKD-EPI)NonAf 83 (>60 ml/min/1.73 sqM) 01/07/18 06:50 Glucose 180 mg/dL (74-99) H 01/07/18 06:50 POC Glucose (mg/dL) 186 mg/dL (75-99) H 01/07/18 11:04 POC Glu Client Program Manager ID Carolina Cruz 01/07/18 11:04 Calcium 9.5 mg/dL (8.4-10.2) 01/07/18 06:50 Total Bilirubin 0.5 mg/dL (0.2-1.3) 01/06/18 17:49 AST 31 U/L (17-59) 01/06/18 17:49 ALT 55 U/L (21-72) 01/06/18 17:49 Alkaline Phosphatase 81 U/L (38-126) 01/06/18 17:49 C-Reactive Protein 51.1 mg/L (<10.0) H 01/06/18 17:49 Total Protein 7.2 g/dL (6.3-8.2) 01/06/18 17:49 Albumin 3.4 g/dL (3.5-5.0) L 01/06/18 17:49 Urine Color Yellow 01/07/18 00:45 Urine Appearance Clear (Clear) 01/07/18 00:45 Urine pH 5.0 (5.0-8.0) 01/07/18 00:45 Ur Specific [place] 1.015 (1.001-1.035) 01/07/18 00:45 Urine Protein Trace (Negative) H 01/07/18 00:45 Urine Glucose (UA) Negative (Negative) 01/07/18 00:45 Urine Ketones Negative (Negative) 01/07/18 00:45 Urine Blood Negative (Negative) 01/07/18 00:45 Urine Nitrite Negative (Negative) 01/07/18 00:45 Urine Bilirubin Negative (Negative) 01/07/18 00:45 Urine Urobilinogen <2.0 mg/dL (<2.0) 01/07/18 00:45 Ur Leukocyte Esterase Negative (Negative) 01/07/18 00:45 Assessment and Plan (1) Charcot's joint of foot Current Visit: No Status: Acute Priority: Medium Code(s): M14.679 - CHARCOT'S JOINT, UNSPECIFIED ANKLE AND FOOT SNOMED Code(s): 231439120 (2) Left foot infection Narrative/Plan: 77-year-old male who comes from [facility] receive his medical care, had been long-standing patient wound healing center with total contact casting. Excellent resolution of the plantar ulcerations. Given the extensive Charcot foot and was sent to the orthopedic foot and ankle specialist where he underwent reconstruction at the [facility] site reduce pressure and resolve his chronic ulceration issues. Approximately 14 days after surgery is now developed some erythema swelling and drainage and has been admitted. The operating room for incision and drainage. Patient has prior cultures Zosyn and vancomycin will be utilized for now we have further data. I do inquire with his significant other if he needs outpatient continuous antibiotic therapy how that will work. Apparently they would be willing to go back to [place] needed for antibiotics and local wound care. Ensure adequate blood glucose control protein supplementation and a multivitamin while patients hospitalized. Current Visit: Yes Status: Acute Code(s): L08.9 - LOCAL INFECTION OF THE SKIN AND SUBCUTANEOUS TISSUE, UNSP SNOMED Code(s): 375149114
[2018-01-07 17:07] LABS: Glucose,Whole Blood 178 mg/dL (75-99)
[2018-01-07] MEDS: PIPERACILLIN-TAZOBACTAM 3.375 GM in DEXTROSE/WATER 1 50ML.BAG IVPB SCH (17:58)
[2018-01-07] MEDS ORDERED: IV FLUID CONTINUATION 1,000 ML IV ONE (18:31)
[2018-01-07] MEDS ORDERED: PROPOFOL 10 MG/ML 20 ML VIAL IV ONE (19:07)
[2018-01-07] MEDS ORDERED: KETAMINE 10 MG/ML 20 ML VIAL ONE (19:07)
[2018-01-07] MEDS ORDERED: MIDAZOLAM 2 MG/2 ML VIAL ONE (19:07)
[2018-01-07 19:22] LABS: Hemoglobin A1C 10.1 % (4.0-6.0)
--- NOTE | 2018-01-07 20:11 | P.OP ---
Date of Procedure: 01/07/18 Preoperative Diagnosis: 1. Left foot deep surgical site infection 2. Type 2 diabetes with peripheral neuropathy 3. History of prior foot ulcer and infection 4. Charcot arthritis left midfoot with collapse status post biplanar midfoot osteotomy and beaming Postoperative Diagnosis: Same Procedure(s) Performed: Left foot irrigation and debridement and application of wound VAC Anesthesia: [facility] Surgeon: Bong Davis Estimated Blood Loss (ml): 10 IV fluids (ml): 300 Pathology: other (Deep Cultures) Condition: stable Disposition: PACU Indications for Procedure: The patient is a very pleasant 77-year-old male with multiple medical problems including type 2 diabetes and peripheral neuropathy. He has a history of Charcot arthritis and midfoot ulcers. He is managed in the wound center with total contact casting and a gastrocnemius recession to offload the mid foot. He went on to heal his ulcer but had continued deformity. I met with him in the office to discuss treatment options including an osteotomy and fusion versus thin wire external fixator. He underwent a biplanar midfoot osteotomy and fusion. He came to see me at his 2 week postoperative appointment and had malodorous, purulent drainage from his foot. He was sent over to the hospital as a direct admission. A wound consultation and infectious disease evaluation from Dr. Melendez was placed. He was started on IV antibiotics. He was taken to the operating room tonight for irrigation and debridement of his wounds, deep culture, and application of a wound VAC. I note the patient is preoperatively discussed treatment. They understand the potential risks of the procedure including continued infection and possibly amputation. Description of Procedure: The patient was identified in preoperative holding and the correct left foot was marked with my initials. I reviewed the consent form with the patient and his . All of their questions were answered. The patient was then brought back to the operating room. He was positioned on his hospital bed and a Mac anesthetic was administered. The left leg was gently debrided before it was prepped and draped removing skin and several the sutures. The left leg was then prepped and draped in the standard sterile fashion. Prior to starting surgery timeout was performed identifying the correct patient, operative extremity, and procedure. I began by exploring the medial midfoot wound. There is a large amount of gross purulence that tract down to the bone. Deep cultures were taken. Nonviable skin, subcutaneous tissue, and debris was sharply excised with a scalpel down to the level of bone. The wound was then irrigated using sterile saline and cystoscopy tubing. The wound over the first MTP joint was also debrided with a scalpel. The wound tracked down to the MTP capsule which was intact. This wound was also irrigated with sterile saline and cystoscopy tubing. A wound VAC was then placed. The wound VAC was hooked up to canister with a tight seal. The first MTP joint was lightly packed with iodoform. A dressing consisting of 4 x 4's and fluffs was applied to the foot. The foot was then wrapped with an Alex wrap. The patient was awoken from his anesthetic and brought to the PACU having top of the procedure well. Plan: The patient is to remain strictly nonweightbearing on his operative leg. IV antibiotics and wound management per Dr. Melendez. I will plan on taking the dressing down on Wednesday and if the wound looks clean we'll transition care to Dr. Melendez and the wound team. I would encourage tight glycemic control to help optimize his chance of healing.
[2018-01-07 20:25] LABS: Glucose,Whole Blood 173 mg/dL (75-99)
[2018-01-07 21:43] LABS: Glucose,Whole Blood 190 mg/dL (75-99)
[2018-01-07] MEDS: INSULIN DETEMIR 100 UNIT/ML 10 ML VIAL SQ SCH (21:50)
[2018-01-07] MEDS: VANCOMYCIN 1,500 MG in SODIUM CHLORIDE 0.9% 250 ML IVPB SCH (21:52)
[2018-01-07] MEDS: ATORVASTATIN 20 MG TAB PO SCH (21:52)
[2018-01-07] MEDS: SODIUM CHLORIDE 0.9% 1,000 ML IV SCH (21:53)
[2018-01-08] MEDS: PIPERACILLIN-TAZOBACTAM 3.375 GM in DEXTROSE/WATER 1 50ML.BAG IVPB SCH ×3 (01:22→16:13)
[2018-01-08 07:10] LABS: Glucose,Whole Blood 151 mg/dL (75-99)
[2018-01-08] MEDS: glipiZIDE 5 MG TAB PO SCH (07:44)
[2018-01-08] MEDS: metFORMIN 500 MG TAB PO SCH ×2 (07:44→17:37)
[2018-01-08] MEDS: DOCUSATE 100 MG CAP PO SCH ×2 (07:44→21:47)
[2018-01-08] MEDS: VANCOMYCIN 1,500 MG in SODIUM CHLORIDE 0.9% 250 ML IVPB SCH ×2 (07:45→21:43)
[2018-01-08] MEDS: INSULIN ASPART 100 UNIT/ML 1 ML 10 ML VIAL SQ SCH ×4 (07:45→21:47)
[2018-01-08 08:20] LABS: Anion Gap 11 mmol/L; Blood Urea Nitrogen 19 mg/dL (9-20); Calcium 9.1 mg/dL (8.4-10.2); Carbon Dioxide 24 mmol/L (22-30); Chloride 100 mmol/L (98-107); Glucose 140 mg/dL (74-99); Potassium 4.9 mmol/L (3.5-5.1); Sodium 135 mmol/L (137-145)
[2018-01-08 11:04] LABS: Glucose,Whole Blood 108 mg/dL (75-99)
[2018-01-08 11:23] VITALS: BMI 31.6
[2018-01-08] MEDS: MULTIVITAMINS, THERA 1 EACH TAB PO SCH (11:46)
[2018-01-08] MEDS: SODIUM CHLORIDE 0.9% 1,000 ML IV SCH (11:46)
--- NOTE | 2018-01-08 12:16 | P.PN ---
Progress Note - Text Progress Note Date: 01/08/18 Patient is a very pleasant 77-year-old male who is seen and examined at bedside for follow-up evaluation for his left foot. He is status post left foot irrigation and debridement with application of wound VAC for left foot deep surgical site infection. Postoperatively patient has had continued to keep dressing and wound VAC intact of the left lower extremity. His left foot pain has been adequately controlled. He is nonweightbearing on the left lower extremity. He has no new complaints. Patient does state it was discussed of obtaining a boot for the left lower extremity to aid in ambulation once the wound VAC has been discontinued. Patient is being seen by Dr. Melendez in infectious disease. Culture results are pending. Physical Exam: Patient is awake, alert, and oriented 3 Vital signs stable Good chest excursion with deep inspiration and expiration Dressing with wound VAC is intact over the left lower extremity Dressing is clean, dry, and intact with no active drainage No obvious sign of infection over the dressing of the left lower extremity Patient has decreased sensation and range of motion of the toes of the left foot No pain with palpation or movement of the left knee Extensor hallucis longus, dorsiflexion, plantarflexion positive sustained right lower extremity Assessment: Status post left foot irrigation and debridement with application of wound VAC Left foot deep surgical site infection Type 2 diabetes with peripheral neuropathy History of previous foot ulcer with infection Charcot arthritis left midfoot with collapse status post biplanar mid foot osteotomy and beaming Plan: 1. Patient has been discussed in detail with Dr. Davis. We will continue to keep the dressing and wound VAC over the left foot clean, dry, and intact. He is encouraged to elevate the left lower extremity and apply ice over the dressing for comfort as needed. We will plan to remove the wound VAC and change his dressing tomorrow, 01/09/2018. We discussed patient will most likely plan remain in the hospital over the weekend pending culture results. He continues to be seen by Dr. Melendez in infectious disease. Following culture results, patient may plan to have a PICC line placed for antibiotic treatment in the outpatient setting. We will continue following the patient closely. Patient will continue to be nonweightbearing on left lower extremity. A prescription will be written and provided to case management to obtain a premium equalizer boot for the left lower extremity to aid in ambulation following removal of wound VAC and changing of dressing. 2. Continue pain control with Gilbert 5 mg/325 mg as prescribed as needed for relief of his symptoms 3. Patient will continue with vancomycin and Zosyn as prescribed 4. Patient will continue be seen and examined by Dr. Melendez in infectious disease 5. Patient has been discussed in detail with Dr. Davis and he agrees with this plan
[2018-01-08 17:18] LABS: Glucose,Whole Blood 202 mg/dL (75-99)
--- NOTE | 2018-01-08 17:34 | PN ---
PROGRESS NOTE DATE OF SERVICE: 01/08/2018. INTERVAL HISTORY: This 77-year-old gentleman admitted with a left foot infection is being closely monitored. The patient underwent left foot irrigation, debridement and application of a wound VAC by Dr. Davis today. No chest pain. No palpitations. No fever. PHYSICAL EXAM: Alert and oriented x3. Pulse 83, blood pressure 98/58, respirations 18, temperature 98.1, pulse ox 93% on room air. HEENT: Conjunctivae normal. Oral mucosa moist. NECK: No jugular venous distention. No carotid bruits. No lymph node enlargement. CARDIOVASCULAR: S1, S2 muffled. RESPIRATORY: Breath sounds diminished in the bases. No rhonchi. No crackles. ABDOMEN: Soft, nontender. No mass palpable. LEGS: Status post surgery. NERVOUS SYSTEM: Nonfocal. LABS: Sodium 134, potassium 4.9. Other labs are noted. The cultures are negative so far. ASSESSMENT: 1. Left foot infection, status post irrigation and debridement, application of a wound VAC. 2. History of left talonavicular fusion, left biplanar midfoot osteotomy for Charcot foot. 3. Diabetes mellitus type 2. 4. Mild hyponatremia. 5. Mild hyperkalemia, improved. 6. Hypertension. 7. Hyperlipidemia. 8. History of sleep apnea. 9. Benign prostatic hypertrophy history. RECOMMENDATIONS AND DISCUSSION: Recommend to continue current medical management and symptomatic treatment. Otherwise, we will monitor the patient closely, closely follow with Infectious Disease. Continue with IV antibiotics. Further recommendations to follow. MMODL / IJN: [id number] /
[2018-01-08 20:06] LABS: Glucose,Whole Blood 231 mg/dL (75-99)
[2018-01-08] MEDS: ATORVASTATIN 20 MG TAB PO SCH (21:47)
[2018-01-08] MEDS: INSULIN DETEMIR 100 UNIT/ML 10 ML VIAL SQ SCH (21:48)
[2018-01-09] MEDS: PIPERACILLIN-TAZOBACTAM 3.375 GM in DEXTROSE/WATER 1 50ML.BAG IVPB SCH ×3 (00:26→17:23)
[2018-01-09] MEDS ORDERED: VANCOMYCIN TROUGH DUE 1 EACH MISC MISCELLANE ONE (07:00)
[2018-01-09 07:25] LABS: Glucose,Whole Blood 93 mg/dL (75-99)
[2018-01-09] MEDS: INSULIN ASPART 100 UNIT/ML 1 ML 10 ML VIAL SQ SCH ×4 (07:31→20:30)
[2018-01-09 07:42] LABS: Anion Gap 11 mmol/L; Blood Urea Nitrogen 18 mg/dL (9-20); Calcium 9.1 mg/dL (8.4-10.2); Carbon Dioxide 23 mmol/L (22-30); Chloride 104 mmol/L (98-107); Glucose 99 mg/dL (74-99); Potassium 4.6 mmol/L (3.5-5.1); Sodium 138 mmol/L (137-145)
[2018-01-09] MEDS: SODIUM CHLORIDE 0.9% 1,000 ML IV SCH (08:06)
[2018-01-09] MEDS: DOCUSATE 100 MG CAP PO SCH ×3 (08:07→20:31)
[2018-01-09] MEDS: VANCOMYCIN 1,500 MG in SODIUM CHLORIDE 0.9% 250 ML IVPB SCH ×2 (08:07→19:27)
[2018-01-09] MEDS: metFORMIN 500 MG TAB PO SCH ×2 (08:07→17:22)
[2018-01-09] MEDS: glipiZIDE 5 MG TAB PO SCH (08:07)
--- NOTE | 2018-01-09 09:49 | P.PN ---
Subjective Progress Note Date: 01/09/18 The patient is doing well this morning and has no complaints. Objective - Vital Signs Vital signs: Vital Signs Temp 97.7 F 01/09/18 05:00 Pulse 72 01/09/18 05:00 Resp 16 01/09/18 05:00 BP 115/62 01/09/18 05:00 Pulse Ox 100 01/09/18 05:00 Intake & Output 01/08/18 01/09/18 01/09/18 18:59 06:59 18:59 Intake Total 700 1979 Output Total 300 Balance 400 1979 Weight 97.069 kg Intake: Intake, IV Titration 700 900 Amount Piperacillin-Tazobactam 3 50 50 .375 gm In Dextrose/Water 1 50ml.bag @ 12.5 mls/hr IVPB Q8HR [facility] Rx#: [id number] Sodium Chloride 0.9% 1, 400 600 000 ml @ 50 mls/hr IV . Q20H [facility] Rx#:[id number] Vancomycin 1,500 mg In 250 250 Sodium Chloride 0.9% 250 ml @ 125 mls/hr IVPB Q12H [facility] Rx#:[id number] Oral 1080 Output: Urine 300 Other: Voiding Method Bedside Commode Bedside Commode Urinal # Voids 2 2 # Bowel Movements 2 - Exam A focused examination of the operative leg was conducted. There is a clean- appearing dressing in place with no saturated blood or drainage. The wound VAC is intact with good seal. - Labs CBC & Chem 7: 01/06/18 17:49 01/09/18 06:55 Labs: Abnormal Lab Results - Last 24 Hours (Table) 01/08/18 01/08/18 01/08/18 Range/Units 11:03 17:16 20:03 POC Glucose (mg/dL) 108 H 202 H 231 H (75-99) mg/dL Microbiology - Last 24 Hours (Table) 01/07/18 19:56 Gram Stain - Preliminary Foot - Left Wound Culture - Preliminary Gram Neg Bacilli Presumptive MRSA 01/07/18 19:56 Gram Stain - Preliminary Foot - Left Wound Culture - Preliminary Presumptive MRSA 01/06/18 17:49 Blood Culture - Preliminary Blood No Growth after 48 hours 01/07/18 09:07 Gram Stain - Final Foot - Left Wound Culture - Final Assessment and Plan Plan: Mr. Humphries is doing well this morning. I would like to leave his wound VAC in place for an additional 24 hours. The dressing can be changed tomorrow. We'll defer to Dr. Melendez for choice of antibiotics, route of administration, and duration of treatment as well as terminal operator wound care. The patient has a tall boot in the room and is to remain strictly nonweightbearing on the operative leg.
[2018-01-09 11:08] LABS: Glucose,Whole Blood 144 mg/dL (75-99)
[2018-01-09] MEDS: MULTIVITAMINS, THERA 1 EACH TAB PO SCH (12:12)
[2018-01-09 17:16] LABS: Glucose,Whole Blood 105 mg/dL (75-99)
[2018-01-09] MEDS: INSULIN DETEMIR 100 UNIT/ML 10 ML VIAL SQ SCH (20:27)
[2018-01-09] MEDS: ATORVASTATIN 20 MG TAB PO SCH (20:29)
[2018-01-09 20:46] LABS: Glucose,Whole Blood 196 mg/dL (75-99)
--- NOTE | 2018-01-09 22:20 | PN ---
PROGRESS NOTE DATE OF SERVICE: 01/09/2018 This 77-year-old gentleman with left foot infection, had surgery and as well as wound VAC placement. No chest pain. No palpitations. No fever. Patient on broad- spectrum IV antibiotics. Wound culture growing presumptive MRSA and gram-negative bacilli also. No chest pain. No palpitations. No fever. PHYSICAL EXAM: Alert and oriented times three. Pulse 78, blood pressure 130/60, respiration 18 , temperature 98 degrees, pulse ox 94% on room air. HEENT: Conjunctivae normal. Oral mucosa moist. Neck is no jugular venous distention. No carotid bruit. No lymph node enlargement. Cardiovascular: S1, S2 muffled. Respiration: Breath sounds diminished in the bases. No rhonchi. No crackles. ABDOMEN: Soft. LEGS: Left foot, status post surgery. CENTRAL NERVOUS SYSTEM: No focal deficits. LABS: Hemoglobin 11.2, potassium improved to 4.6. ASSESSMENT: 1. Left foot infection status post irrigation debridement, application of wound VAC with possibly MRSA and gram-negative bacilli. 2. History of left talonavicular fusion, left biplanar midfoot osteotomy for Charcot foot. 3. Diabetes mellitus type 2. 4. Mild hyponatremia. 5. Mild hyperkalemia, improved. 6. Hypertension. 7. Hyperlipidemia. 8. History of sleep apnea. 9. Benign prostatic hypertrophy. RECOMMENDATIONS AND DISCUSSION: Recommend to continue current medications, management. Continue with broad- spectrum IV antibiotics. Currently patient is on a combination of Zosyn and Vanco. We will continue to monitor. I would recommend final ID of the organisms and closely follow with Infectious Disease. Further recommendations to follow. MMODL / IJN: [id number] / LAUREN
[2018-01-10] MEDS: PIPERACILLIN-TAZOBACTAM 3.375 GM in DEXTROSE/WATER 1 50ML.BAG IVPB SCH ×3 (00:19→16:40)
[2018-01-10] MEDS: SODIUM CHLORIDE 0.9% 1,000 ML IV SCH (05:10)
[2018-01-10 07:39] LABS: Glucose,Whole Blood 201 mg/dL (75-99)
[2018-01-10] MEDS: INSULIN ASPART 100 UNIT/ML 1 ML 10 ML VIAL SQ SCH ×4 (08:10→20:41)
[2018-01-10] MEDS: metFORMIN 500 MG TAB PO SCH ×2 (08:10→17:28)
[2018-01-10] MEDS: VANCOMYCIN 1,500 MG in SODIUM CHLORIDE 0.9% 250 ML IVPB SCH (08:36)
[2018-01-10] MEDS: DOCUSATE 100 MG CAP PO SCH ×2 (08:37→20:41)
[2018-01-10] MEDS: glipiZIDE 5 MG TAB PO SCH (08:37)
[2018-01-10 09:16] LABS: Potassium 5.1 mmol/L (3.5-5.1)
[2018-01-10] MEDS ORDERED: VANCOMYCIN IV PER PHARMACY 1 EACH MISC MISCELLANE PRN (09:22)
[2018-01-10 11:15] LABS: Glucose,Whole Blood 239 mg/dL (75-99)
[2018-01-10] MEDS: MULTIVITAMINS, THERA 1 EACH TAB PO SCH (12:59)
--- NOTE | 2018-01-10 14:23 | P.PN ---
Subjective Progress Note Date: 01/10/18 Principal diagnosis: Left foot infection Patient seen at bedside today. No complaints. He is status post I and D left foot on 01/07/18/Wound vac has been in place. He denies fever, chills, chest pain. SOB. Objective - Vital Signs Vital signs: Vital Signs Temp 97.9 F 01/10/18 05:00 Pulse 89 01/10/18 05:00 Resp 18 01/10/18 05:00 BP 114/70 01/10/18 05:00 Pulse Ox 95 01/10/18 05:00 Intake & Output 01/09/18 01/10/18 01/10/18 18:59 06:59 18:59 Intake Total 700 600 Balance 700 600 Intake: Intake, IV Titration 700 Amount Piperacillin-Tazobactam 3 50 .375 gm In Dextrose/Water 1 50ml.bag @ 12.5 mls/hr IVPB Q8HR [facility] Rx#: [id number] Sodium Chloride 0.9% 1, 400 000 ml @ 50 mls/hr IV . Q20H [facility] Rx#:[id number] Vancomycin 1,500 mg In 250 Sodium Chloride 0.9% 250 ml @ 125 mls/hr IVPB Q12H [facility] Rx#:[id number] Oral 600 Other: Voiding Method Bedside Commode Urinal # Voids 4 # Bowel Movements 2 - Exam Wound vac and dressing taken down. No active bleeding. No active purulence expressed. Mild erythema surrounding incisions. Less than 2 sec cap refill and 2 + DP pulse present. NVI intact. - Constitutional General appearance: Present: no acute distress - Labs CBC & Chem 7: 01/06/18 17:49 01/10/18 08:43 Labs: Abnormal Lab Results - Last 24 Hours (Table) 01/09/18 01/09/18 01/10/18 Range/Units 17:14 20:26 07:35 BUN (9-20) mg/dL Creatinine (0.66-1.25) mg/dL Glucose (74-99) mg/dL POC Glucose (mg/dL) 105 H 196 H 201 H (75-99) mg/dL 01/10/18 01/10/18 Range/Units 08:43 11:12 BUN 25 H (9-20) mg/dL Creatinine 1.98 H (0.66-1.25) mg/dL Glucose 234 H (74-99) mg/dL POC Glucose (mg/dL) 239 H (75-99) mg/dL Microbiology - Last 24 Hours (Table) 01/07/18 19:56 Gram Stain - Final Foot - Left Wound Culture - Final Methicillin resist S. aureus 01/07/18 19:56 Anaerobic Culture - Preliminary Foot - Left 01/07/18 19:56 Anaerobic Culture - Preliminary Foot - Left 01/06/18 17:49 Blood Culture - Preliminary Blood No Growth after 72 hours 01/07/18 19:56 Gram Stain - Final Foot - Left Wound Culture - Final Enterobacter hormaechei Methicillin resist S. aureus Assessment and Plan (1) Left foot infection Narrative/Plan: Continue wound care and daily dressing changes. ID consulted and appreciate their recommendations. IV antibiotics. Non weightbearing. Will monitor closely Current Visit: Yes Status: Acute Priority: Medium Code(s): L08.9 - LOCAL INFECTION OF THE SKIN AND SUBCUTANEOUS TISSUE, UNSP SNOMED Code(s): 986652649 Time with Patient: Less than 30
[2018-01-10 17:01] LABS: Glucose,Whole Blood 144 mg/dL (75-99)
[2018-01-10] MEDS: ATORVASTATIN 20 MG TAB PO SCH (20:41)
[2018-01-10] MEDS: INSULIN DETEMIR 100 UNIT/ML 10 ML VIAL SQ SCH (20:41)
[2018-01-10 20:44] LABS: Glucose,Whole Blood 226 mg/dL (75-99)
--- NOTE | 2018-01-10 23:03 | P.PN ---
Subjective Progress Note Date: 01/10/18 77 year old male presents to Hospital after being evaluated by orthopedics because of difficulties with his left foot. The patient has a known history of a Charcot foot to the left side. The following wound healing center for many months. 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 However the patient had significant deformity to the foot and he was sent to the orthopedic foot and ankle specialist and he has not been taking to the operating room on 2017 for the midfoot osteotomy and talonavicular fusion. Surgery went well but is now presenting with swelling erythema and some drainage to the site. Pleasant and relates unfortunately he is not having much pain is not having high -grade fever chills or rigors. Infectious disease was requested regarding antibiotic therapy. 01/10/2018 Better at this point in time denies new troubles. Recovering well from surgery. No fevers or chills Objective - Vital Signs Vital signs: Vital Signs Temp 97.4 F L 01/10/18 13:00 Pulse 84 01/10/18 13:00 Resp 18 01/10/18 13:00 BP 124/78 01/10/18 13:00 Pulse Ox 97 01/10/18 13:00 Intake & Output 01/10/18 01/10/18 01/11/18 06:59 18:59 06:59 Intake Total 600 450 Output Total 300 Balance 600 150 Weight 97.069 kg Intake: Intake, IV Titration 50 Amount Piperacillin-Tazobactam 3 50 .375 gm In Dextrose/Water 1 50ml.bag @ 12.5 mls/hr IVPB Q8HR [facility] Rx#: [id number] Oral 600 400 Output: Urine 300 Other: Voiding Method Bedside Commode Urinal # Voids 4 2 # Bowel Movements 2 1 - Exam Pleasant 77-year-old male who is comfortable at this time who is not in acute distress HEENT: Anicteric conjunctiva are pink and moist nasal mucosa grossly intact without significant lesions, there is no thrush. Neck: The neck is supple without significant lymphadenopathy or thyromegaly. Lungs: Good bilateral air entry without significant crackles or wheezing. There is no significant bronchial sounds. There is no egophony or dullness. Heart: Regular rate and rhythm with an audible S1-S2, no S3 no S4. There is no significant murmur click or rub, PMI was nondisplaced. Abdomen: Positive bowel sounds soft and nontender without palpable masses or organomegaly. There was no guarding or rebound. Extremities: The upper extremities have excellent pulses they are symmetric, no significant petechiae or telangiectasia. No splinter hemorrhages were noted. Right lower extremity without abnormalities. The left foot is evaluated. The surgical wounds have evidence of some erythema some drainage some tenderness no patrick crepitance or fluctuance. There is minimal erythema ascends. No lymphadenopathy in the left groin and no other abnormal lymph nodes are noted Neuro: Awake alert oriented to person place and time. There are no acute new gross focal sensory motor deficits except his peripheral neuropathy especially at the feet - Labs CBC & Chem 7: 01/06/18 17:49 01/10/18 08:43 Labs: Abnormal Lab Results - Last 24 Hours (Table) 01/10/18 01/10/18 01/10/18 Range/Units 07:35 08:43 11:12 BUN 25 H (9-20) mg/dL Creatinine 1.98 H (0.66-1.25) mg/dL Glucose 234 H (74-99) mg/dL POC Glucose (mg/dL) 201 H 239 H (75-99) mg/dL 01/10/18 01/10/18 Range/Units 16:56 20:33 BUN (9-20) mg/dL Creatinine (0.66-1.25) mg/dL Glucose (74-99) mg/dL POC Glucose (mg/dL) 144 H 226 H (75-99) mg/dL Microbiology - Last 24 Hours (Table) 01/06/18 17:49 Blood Culture - Preliminary Blood No Growth after 96 hours 01/07/18 19:56 Gram Stain - Final Foot - Left Wound Culture - Final Methicillin resist S. aureus 01/07/18 19:56 Anaerobic Culture - Preliminary Foot - Left 01/07/18 19:56 Anaerobic Culture - Preliminary Foot - Left 01/07/18 19:56 Gram Stain - Final Foot - Left Wound Culture - Final Enterobacter hormaechei Methicillin resist S. aureus Laboratory Results WBC 10.5 k/uL (3.8-10.6) 01/06/18 17:49 RBC 4.04 m/uL (4.30-5.90) L 09/13/18 17:49 Hgb 11.2 gm/dL (13.0-17.5) L 01/06/18 17:49 Hct 35.5 % (39.0-53.0) L 01/06/18 17:49 MCV 87.9 fL (80.0-100.0) 01/06/18 17:49 MCH 27.8 pg (25.0-35.0) 01/06/18 17:49 MCHC 31.7 g/dL (31.0-37.0) 01/06/18 17:49 RDW 15.1 % (11.5-15.5) 01/06/18 17:49 Plt Count 572 k/uL (150-450) H 01/06/18 17:49 Neutrophils % 77 % 01/06/18 17:49 Lymphocytes % 15 % 01/06/18 17:49 Monocytes % 5 % 01/06/18 17:49 Eosinophils % 2 % 01/06/18 17:49 Basophils % 0 % 01/06/18 17:49 Neutrophils # 8.0 k/uL (1.3-7.7) H 01/06/18 17:49 Lymphocytes # 1.6 k/uL (1.0-4.8) 01/06/18 17:49 Monocytes # 0.5 k/uL (0-1.0) 01/06/18 17:49 Eosinophils # 0.2 k/uL (0-0.7) 01/06/18 17:49 Basophils # 0.0 k/uL (0-0.2) 01/06/18 17:49 Hypochromasia Slight 01/06/18 17:49 ESR 111 mm/hr (0-15) H 01/06/18 17:49 Sodium 137 mmol/L (137-145) 01/10/18 08:43 Potassium 5.1 mmol/L (3.5-5.1) 01/10/18 08:43 Chloride 104 mmol/L (98-107) 01/10/18 08:43 Carbon Dioxide 22 mmol/L (22-30) 01/10/18 08:43 Anion Gap 11 mmol/L 01/10/18 08:43 BUN 25 mg/dL (9-20) H 01/10/18 08:43 Creatinine 1.98 mg/dL (0.66-1.25) H 01/10/18 08:43 Est GFR (CKD-EPI)AfAm 37 (>60 ml/min/1.73 sqM) 01/10/18 08:43 Est GFR (CKD-EPI)NonAf 32 (>60 ml/min/1.73 sqM) 01/10/18 08:43 Glucose 234 mg/dL (74-99) H 01/10/18 08:43 POC Glucose (mg/dL) 226 mg/dL (75-99) H 01/10/18 20:33 POC Glu [employer] Account Manager ID Manjula Reyna 01/10/18 20:[address] Glu mg/dL 243 01/07/18 06:50 Hemoglobin A1c 10.1 % (4.0-6.0) H 01/07/18 06:50 Calcium 9.0 mg/dL (8.4-10.2) 01/10/18 08:43 Total Bilirubin 0.5 mg/dL (0.2-1.3) 01/06/18 17:49 AST 31 U/L (17-59) 01/06/18 17:49 ALT 55 U/L (21-72) 01/06/18 17:49 Alkaline Phosphatase 81 U/L (38-126) 01/06/18 17:49 C-Reactive Protein 51.1 mg/L (<10.0) H 01/06/18 17:49 Total Protein 7.2 g/dL (6.3-8.2) 01/06/18 17:49 Albumin 3.4 g/dL (3.5-5.0) L 01/06/18 17:49 Urine Color Yellow 01/07/18 00:45 Urine Appearance Clear (Clear) 01/07/18 00:45 Urine pH 5.0 (5.0-8.0) 01/07/18 00:45 Ur Specific [place] 1.015 (1.001-1.035) 01/07/18 00:45 Urine Protein Trace (Negative) H 01/07/18 00:45 Urine Glucose (UA) Negative (Negative) 01/07/18 00:45 Urine Ketones Negative (Negative) 18 00:45 Urine Blood Negative (Negative) 01/07/18 00:45 Urine Nitrite Negative (Negative) 01/07/18 00:45 Urine Bilirubin Negative (Negative) 01/07/18 00:45 Urine Urobilinogen <2.0 mg/dL (<2.0) 01/07/18 00:45 Ur Leukocyte Esterase Negative (Negative) 01/07/18 00:45 Vancomycin Trough 13.5 ug/mL 01/09/18 06:55 Microbiology 01/06/18 17:49 Blood Blood Culture - Preliminary No Growth after 96 hours 01/07/18 19:56 Foot - Left Gram Stain - Final 01/07/18 19:56 Foot - Left Wound Culture - Final Methicillin resist S. aureus 01/07/18 19:56 Foot - Left Anaerobic Culture - Preliminary 01/07/18 19:56 Foot - Left Anaerobic Culture - Preliminary 01/07/18 19:56 Foot - Left Gram Stain - Final 01/07/18 19:56 Foot - Left Wound Culture - Final Enterobacter hormaechei Methicillin resist S. aureus 01/07/18 09:07 Foot - Left Gram Stain - Final 01/07/18 09:07 Foot - Left Wound Culture - Final Assessment and Plan (1) Charcot's joint of foot Current Visit: No Status: Acute Priority: Medium Code(s): M14.679 - CHARCOT'S JOINT, UNSPECIFIED ANKLE AND FOOT SNOMED Code(s): 340224832 (2) Left foot infection Narrative/Plan: 77-year-old male who comes from [facility] receive his medical care, had been long-standing patient wound healing center with total contact casting. Excellent resolution of the plantar ulcerations. Given the extensive Charcot foot and was sent to the orthopedic foot and ankle specialist where he underwent reconstruction at the Charcot site reduce pressure and resolve his chronic ulceration issues. Approximately 14 days after surgery is now developed some erythema swelling and drainage and has been admitted. The operating room for incision and drainage. Patient has prior cultures Zosyn and vancomycin will be utilized for now we have further data. I do inquire with his significant other if he needs outpatient continuous antibiotic therapy how that will work. Apparently they would be willing to go back to [place] needed for antibiotics and local wound care. Ensure adequate blood glucose control protein supplementation and a multivitamin while patients hospitalized. 01/10/2018 patient is much more comfortable. For the getting back to [facility]. Surgical notes are reviewed. Culture shows evidence of MSSA and Enterobacter species. There is a potential for utilizing oral antibiotic therapy with trimethoprim sulfamethoxazole. We'll recheck his creatinine in the morning to make sure that it is back to his baseline. Local wound care with silver alginate dressing can be arranged in the outpatient setting. We'll work with orthopedics regarding the discharge plan, his boot is already available. Current Visit: Yes Status: Acute Priority: Medium Code(s): L08.9 - LOCAL INFECTION OF THE SKIN AND SUBCUTANEOUS TISSUE, UNSP SNOMED Code(s): 101514703
[2018-01-11] MEDS: PIPERACILLIN-TAZOBACTAM 3.375 GM in DEXTROSE/WATER 1 50ML.BAG IVPB SCH ×2 (00:50→07:34)
[2018-01-11] MEDS: SODIUM CHLORIDE 0.9% 1,000 ML IV SCH ×2 (06:06→21:22)
[2018-01-11] MEDS ORDERED: VANCOMYCIN TROUGH DUE 1 EACH MISC MISCELLANE ONE (07:00)
[2018-01-11 07:20] LABS: Glucose,Whole Blood 102 mg/dL (75-99)
[2018-01-11] MEDS: INSULIN ASPART 100 UNIT/ML 1 ML 10 ML VIAL SQ SCH ×4 (07:27→21:18)
[2018-01-11] MEDS: glipiZIDE 5 MG TAB PO SCH (07:34)
[2018-01-11] MEDS: metFORMIN 500 MG TAB PO SCH (07:34)
[2018-01-11] MEDS: DOCUSATE 100 MG CAP PO SCH ×2 (07:34→20:23)
[2018-01-11 08:46] LABS: Calcium 9.3 mg/dL (8.4-10.2); Potassium 4.8 mmol/L (3.5-5.1)
[2018-01-11 08:59] LABS: Vancomycin,Random 18.9 ug/mL
--- NOTE | 2018-01-11 09:03 | P.PN ---
Subjective Progress Note Date: 01/11/18 Principal diagnosis: Left foot infection Patient seen at bedside today. No complaints. He is status post I and D left foot on 01/07/18. He denies fever, chills, chest pain. SOB. Objective - Vital Signs Vital signs: Vital Signs Temp 98.2 F 01/11/18 06:20 Pulse 77 01/11/18 06:20 Resp 18 01/11/18 06:20 BP 137/70 01/11/18 06:20 Pulse Ox 95 01/11/18 06:20 Intake & Output 01/10/18 01/11/18 01/11/18 18:59 06:59 18:59 Intake Total 450 1000 Output Total 300 Balance 150 1000 Weight 97.069 kg Intake: Intake, IV Titration 50 Amount Piperacillin-Tazobactam 3 50 .375 gm In Dextrose/Water 1 50ml.bag @ 12.5 mls/hr IVPB Q8HR [facility] Rx#: [id number] Oral 400 1000 Output: Urine 300 Other: Voiding Method Bedside Commode Bedside Commode Urinal Urinal # Voids 2 3 # Bowel Movements 1 1 - Exam Wound vac and dressing taken down. No active bleeding. No active purulence expressed. Mild erythema surrounding incisions. Less than 2 sec cap refill and 2 + DP pulse present. NVI intact. - Constitutional General appearance: Present: no acute distress - Labs CBC & Chem 7: 01/06/18 17:49 01/11/18 08:06 Labs: Abnormal Lab Results - Last 24 Hours (Table) 01/10/18 01/10/18 01/10/18 Range/Units 08:43 11:12 16:56 Chloride (98-107) mmol/L Carbon Dioxide (22-30) mmol/L BUN 25 H (9-20) mg/dL Creatinine 1.98 H (0.66-1.25) mg/dL Glucose 234 H (74-99) mg/dL POC Glucose (mg/dL) 239 H 144 H (75-99) mg/dL 01/10/18 01/11/18 01/11/18 Range/Units 20:33 07:17 08:06 Chloride 108 H (98-107) mmol/L Carbon Dioxide 19 L (22-30) mmol/L BUN 24 H (9-20) mg/dL Creatinine 2.21 H (0.66-1.25) mg/dL Glucose 119 H (74-99) mg/dL POC Glucose (mg/dL) 226 H 102 H (75-99) mg/dL Microbiology - Last 24 Hours (Table) 01/06/18 17:49 Blood Culture - Preliminary Blood No Growth after 96 hours 01/07/18 19:56 Gram Stain - Final Foot - Left Wound Culture - Final Methicillin resist S. aureus Assessment and Plan (1) Left foot infection Narrative/Plan: Continue wound care and daily dressing changes per ID. Cultures show MSSA. ID has recommended possible D/C on oral abiotics and wound care. Continue Non weightbearing in boot. Will monitor closely and await ID final recommendations. Current Visit: Yes Status: Acute Priority: Medium Code(s): L08.9 - LOCAL INFECTION OF THE SKIN AND SUBCUTANEOUS TISSUE, UNSP SNOMED Code(s): 908899215 Time with Patient: Less than 30
[2018-01-11] MEDS: MULTIVITAMINS, THERA 1 EACH TAB PO SCH (11:16)
[2018-01-11 11:41] LABS: Glucose,Whole Blood 75 mg/dL (75-99)
[2018-01-11] MEDS ORDERED: VANCOMYCIN 1,500 MG in SODIUM CHLORIDE 0.9% 250 ML IVPB ONE (12:00)
[2018-01-11] MEDS ORDERED: LIDOCAINE 1% INJ 10MG/ML (20 ML MDV) SQ ONE (13:49)
--- NOTE | 2018-01-11 14:20 | IR ---
PICC LINE PLACEMENT: HISTORY: Infection requiring long-term antibiotic therapy PROCEDURE: Ultrasound and fluoroscopic guidance of PICC line placement. COMPLICATIONS: None ANESTHESIA: 1. 1% Lidocaine locally. FINDINGS/TECHNIQUE: The procedure was explained to the patient. The risks, complications, benefits and alternatives were discussed and any questions were answered. Informed consent was obtained. The patient was placed supine on the fluoroscopic table and prepped and draped in the usual sterile fash ion. Utilizing a 21 gauge needle and sonographic and fluoroscopic guidance, access in the left basi lic vein was achieved and there is placement of a 0.018 guidewire. The vein is patent. A 4-F. sheat h was placed over the guidewire. The guidewire and dilator were removed and a 4-F. PICC line was angel dank through the sheath with the tip at the level of the SVC. The sheath was removed, the catheter wa s flushed and sutured into position. The patient was stable throughout the procedure and remained st able upon discharge from the Department of Radiology. The vein puncture was patent under ultrasound. A larios scale image was obtained to document patency of the vein punctured. All elements of the maximal barrier technique were utilized. FLUOROSCOPY TIME: 0.1 minute, one image submitted IMPRESSION: Successful PICC line placement under ultrasound and fluoroscopic guidance.
[2018-01-11 16:45] LABS: Glucose,Whole Blood 90 mg/dL (75-99)
--- NOTE | 2018-01-11 18:08 | P.PN ---
Subjective Progress Note Date: 01/10/18 Progress note being dictated for Dr. Roth. Interval history: This is a 77-year-old gentleman admitted with left foot infection, status post I&D, wound VAC application with cultures reporting MRSA , Enterobacter species and multiple other medical issues. Maintained on IV antibiotics as per infectious disease. Worsening of renal function, creatinine 1.98. Blood sugars ranging in the low 100s to low 200s. Denies chest pain, palpitations or increased shortness of breath. Pain controlled. Objective - Vital Signs Vital signs: Vital Signs Temp 97.5 F L 01/11/18 13:00 Pulse 82 01/11/18 13:00 Resp 16 01/11/18 13:00 BP 145/70 01/11/18 13:00 Pulse Ox 96 01/11/18 13:00 Intake & Output 01/10/18 01/11/18 01/11/18 18:59 06:59 18:59 Intake Total 450 1000 Output Total 300 Balance 150 1000 Weight 97.069 kg Intake: Intake, IV Titration 50 Amount Piperacillin-Tazobactam 3 50 .375 gm In Dextrose/Water 1 50ml.bag @ 12.5 mls/hr IVPB Q8HR [facility] Rx#: [id number] Oral 400 1000 Output: Urine 300 Other: Voiding Method Bedside Commode Bedside Commode Urinal Urinal # Voids 2 3 4 # Bowel Movements 1 1 3 - Exam PHYSICAL EXAM: VITAL SIGNS: As above GENERAL: Sitting up in bed, no acute distress HEENT: Conjunctivae normal. eyes normal. Oral mucosa moist NECK: No JVD. No thyroid enlargement. No LNs CARDIOVASCULAR: S1, S2 muffled. No murmur RESPIRATION: Breath sounds diminished in the bases. No rhonchi or crackles. No bronchial breathing. ABDOMEN: Soft, nontender . No guarding. no masses palpable.Bowel sounds heard. EXTREMITIES: Left foot elevated, dressing clean dry and intact, toes warm and pink PSYCHIATRY: Alert and oriented -3, mood and affect normal. NERVOUS SYSTEM: Cranial N 2-12 grossly normal. Moves all 4 limbs. Diffuse weakness No focal deficits. - Labs CBC & Chem 7: 01/06/18 17:49 01/11/18 08:06 Labs: Abnormal Lab Results - Last 24 Hours (Table) 01/10/18 01/11/18 01/11/18 Range/Units 20:33 07:17 08:06 Chloride 108 H (98-107) mmol/L Carbon Dioxide 19 L (22-30) mmol/L BUN 24 H (9-20) mg/dL Creatinine 2.21 H (0.66-1.25) mg/dL Glucose 119 H (74-99) mg/dL POC Glucose (mg/dL) 226 H 102 H (75-99) mg/dL Microbiology - Last 24 Hours (Table) 01/06/18 17:49 Blood Culture - Preliminary Blood No Growth after 96 hours Assessment and Plan Assessment: -Left foot infection, status post I&D, application of wound VAC with MRSA and Enterobacter species -History of left talonavicular fusion, left 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 -Diabetes mellitus type 2 -Hyponatremia,mild Plan: Continue on current medication regime ,monitoring and symptomatic treatment. Close monitoring of renal function with repeat labs ordered for a.m. close monitoring of Accu-Cheks. antibiotics as per ID. Wound care as per orthopedic surgery . Further recommendations to follow. The impression and plan of care has been dictated as directed. : I performed a history and examination of this patient, discussed the same with the dictator. I agree with the dictator's note ,documented as a scribe. Any additional findings or plans will be noted.
--- NOTE | 2018-01-11 18:16 | P.PN ---
Subjective Progress Note Date: 01/11/18 Progress note being dictated for Dr. Sherwood Interval history: This is a 77-year-old gentleman admitted with left foot infection, status post I&D, wound VAC application with cultures reporting MRSA , Enterobacter species and multiple other medical issues. Maintained on IV antibiotics as per infectious disease. Worsening of renal function, creatinine 1.98. Blood sugars ranging in the low 100s to low 200s. Denies chest pain, palpitations or increased shortness of breath. Pain controlled. 01/11/2018 maintained on IV antibiotics as per infectious disease. Renal function continues to worsen, creatinine currently 2.21. Pain controlled. Diet intake remains fair, blood sugars currently running low 100s. Denies chest pain, palpitations or shortness of breath. Objective - Vital Signs Vital signs: Vital Signs Temp 97.5 F L 01/11/18 13:00 Pulse 82 01/11/18 13:00 Resp 16 01/11/18 13:00 BP 145/70 01/11/18 13:00 Pulse Ox 96 01/11/18 13:00 Intake & Output 01/10/18 01/11/18 01/11/18 18:59 06:59 18:59 Intake Total 450 1000 Output Total 300 Balance 150 1000 Weight 97.069 kg Intake: Intake, IV Titration 50 Amount Piperacillin-Tazobactam 3 50 .375 gm In Dextrose/Water 1 50ml.bag @ 12.5 mls/hr IVPB Q8HR [facility] Rx#: [id number] Oral 400 1000 Output: Urine 300 Other: Voiding Method Bedside Commode Bedside Commode Urinal Urinal # Voids 2 3 4 # Bowel Movements 1 1 3 - Exam PHYSICAL EXAM: VITAL SIGNS: As above GENERAL: Sitting up in bed, no acute distress HEENT: Conjunctivae normal. eyes normal. Oral mucosa moist NECK: No JVD. No thyroid enlargement. No LNs CARDIOVASCULAR: S1, S2 muffled. No murmur RESPIRATION: Breath sounds diminished in the bases. No rhonchi or crackles. No bronchial breathing. ABDOMEN: Soft, nontender . No guarding. no masses palpable.Bowel sounds heard. EXTREMITIES: Left foot elevated, dressing clean dry and intact, toes warm and pink PSYCHIATRY: Alert and oriented -3, mood and affect normal. NERVOUS SYSTEM: Cranial N 2-12 grossly normal. Moves all 4 limbs. Diffuse weakness No focal deficits. Microbiology 01/06/18 17:49 Blood Blood Culture - Preliminary No Growth after 96 hours 01/07/18 19:56 Foot - Left Gram Stain - Final 01/07/18 19:56 Foot - Left Wound Culture - Final Methicillin resist S. aureus 01/07/18 19:56 Foot - Left Anaerobic Culture - Preliminary 01/07/18 19:56 Foot - Left Anaerobic Culture - Preliminary 01/07/18 19:56 Foot - Left Gram Stain - Final 01/07/18 19:56 Foot - Left Wound Culture - Final Enterobacter hormaechei Methicillin resist S. aureus 01/07/18 09:07 Foot - Left Gram Stain - Final 01/07/18 09:07 Foot - Left Wound Culture - Final - Labs CBC & Chem 7: 01/06/18 17:49 01/11/18 08:06 Labs: Abnormal Lab Results - Last 24 Hours (Table) 01/10/18 01/11/18 01/11/18 Range/Units 20:33 07:17 08:06 Chloride 108 H (98-107) mmol/L Carbon Dioxide 19 L (22-30) mmol/L BUN 24 H (9-20) mg/dL Creatinine 2.21 H (0.66-1.25) mg/dL Glucose 119 H (74-99) mg/dL POC Glucose (mg/dL) 226 H 102 H (75-99) mg/dL Microbiology - Last 24 Hours (Table) 01/06/18 17:49 Blood Culture - Preliminary Blood No Growth after 96 hours Assessment and Plan Assessment: -Left foot infection, status post I&D, application of wound VAC with MRSA and Enterobacter hormaechei -History of left talonavicular fusion, left 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 -Diabetes mellitus type 2 -Hyponatremia,mild -Acute renal failure, possibly med induced, on vancomycin-now discontinued, converted to daptomycin, possibly related to infection. Plan: Continue on current medication regime ,monitoring and symptomatic treatment. IV fluids increased, multiple urine studies ordered. Nephrology consulted regarding worsening renal function .Close monitoring of renal function with repeat labs ordered for a.m. close monitoring of Accu-Cheks. Repeat Accu-Chek pending. Glipizide discontinued. antibiotics adjusted as per ID. Further recommendations to follow. The impression and plan of care has been dictated as directed. : I performed a history and examination of this patient, discussed the same with the dictator. I agree with the dictator's note ,documented as a scribe. Any additional findings or plans will be noted.
[2018-01-11] MEDS: ATORVASTATIN 20 MG TAB PO SCH (20:23)
[2018-01-11 20:49] LABS: Glucose,Whole Blood 167 mg/dL (75-99)
[2018-01-11] MEDS ORDERED: INSULIN DETEMIR 100 UNIT/ML 10 ML VIAL SQ SCH (21:00)
[2018-01-12 07:14] LABS: Glucose,Whole Blood 126 mg/dL (75-99)
[2018-01-12] MEDS: INSULIN ASPART 100 UNIT/ML 1 ML 10 ML VIAL SQ SCH ×4 (08:12→21:28)
[2018-01-12] MEDS: DOCUSATE 100 MG CAP PO SCH ×2 (08:14→20:00)
[2018-01-12] MEDS: DAPTOmycin 500 MG in SODIUM CHLORIDE 0.9% 50 ML IVPB SCH (08:14)
[2018-01-12] MEDS ORDERED: DAPTOmycin 500 MG in SODIUM CHLORIDE 0.9% 50 ML IVPB SCH (09:00)
[2018-01-12 09:13] LABS: Calcium 8.8 mg/dL (8.4-10.2); Potassium 4.9 mmol/L (3.5-5.1)
--- NOTE | 2018-01-12 10:52 | P.NPCON ---
History of Present Illness - Reason for Consult acute renal failure - History of Present Illness Reason for consultation: Acute kidney injury History of present illness: Patient is a 77-year-old male seen in renal consultation for acute kidney injury. His baseline creatinine is 1 and was elevated at 2.21 as of yesterday. It is down to 1.98 today. Patient underwent left talonavicular fusion as well as left biplanar midfoot osteotomy on December 23 for Charcot foot. He was then discharged to rehab. He can followed up with a surgeon as an outpatient was noted to have infection and was readmitted. He underwent left foot debridement with wound VAC placement on January 07. Patient initially received IV vancomycin. His blood pressure was also the systolic 90s which has subsequently improved. He admits to good urine output. No hematuria or dysuria. No vomiting or diarrhea. Oral intake is good. He denies any family history of renal disease. He is currently on daptomycin. He does have history of diabetes mellitus which she states was diagnosed over 20 years ago. Vital signs are stable. General: The patient appeared well nourished and normally developed. HEENT: Head exam is unremarkable. Neck is without jugular venous distension. LUNGS: Lungs are clear to auscultation and percussion. Breath sounds decreased. HEART: Rate and Rhythm are regular. First and second heart sounds normal. No murmurs, rubs or gallops. ABDOMEN: Abdominal exam reveals normal bowel sounds. Non-tender and non- distended. No evidence of peritonitis. EXTREMITITES: No clubbing, cyanosis, or edema. Left foot drop. No obvious drainage. Past Medical History Past Medical History: Cancer, Diabetes Mellitus, Hyperlipidemia, Osteoarthritis (OA), Prostate Disorder, Sleep Apnea/CPAP/BIPAP Additional Past Medical History / Comment(s): doesn't use CPAP, hx. basal cell skin cancer on nose, finished in wound care center couple weeks ago for wound left foot but then had sx 12/22/17 and pt stated now has infection to lt foot" , neuropathy -feet. History of Any Multi-Drug Resistant Organisms: MRSA Date of last positivie culture/infection: 01/07/18 MDRO Source:: FOOT Past Surgical History: Adenoidectomy, Appendectomy, Back Surgery, Orthopedic Surgery, Tonsillectomy Additional Past Surgical History / Comment(s): ROTATOR CUFF BILAT SHOULDERS, BACK SURGERY FUSION L4-5 2014, 12/22/17 lt foot sx for charcot foot Past Anesthesia/Blood Transfusion Reactions: No Reported Reaction Additional Psychological History / Comment(s): Lives a significant other in [place] the also have a home in [place]. Retired. Stopped smoking in 1993. No significant alcohol use. No recreational drug use. No experience. No extensive travel. No animal exposures Smoking Status: Former smoker - Past Family History Mother Family Medical History: Cancer Additional Family Medical History / Comment(s): COLON CANCER Father Family Medical History: Diabetes Mellitus Medications and Allergies Home Medications Medication Instructions Recorded Confirmed Type Lisinopril [Zestril] 10 mg PO DAILY 01/11/17 01/06/18 History Simvastatin 40 mg PO HS 01/11/17 01/06/18 History metFORMIN HCL 1,000 mg PO BID 01/11/17 01/06/18 History Insulin Glargine,Hum.rec.anlog 60 units SQ HS 04/07/17 01/06/18 History [Toudimao Solostar] Docusate [Colace] 100 mg PO BID #60 capsule 12/28/17 01/06/18 Rx HYDROcodone/APAP 5-325MG [Hemphill 1 tab PO Q4HR PRN #42 tab 12/28/17 01/06/18 Rx 5-325] glipiZIDE [Glucotrol] 5 mg PO DAILY tab 12/28/17 01/06/18 Rx Aspirin EC [Ecotrin Low Dose] 81 mg PO DAILY 01/06/18 01/06/18 History Vancomycin 1,500 mg IVPB Q48H #32 bag 01/11/18 Rx cefTRIAXone [Rocephin] 1,000 mg IVP Q24H #42 ml 01/11/18 Rx Allergies Allergy/AdvReac Type Severity Reaction Status Date / Time No Known Allergies Allergy Verified 01/06/18 18:53 Physical Exam Vitals: Vital Signs Temp Pulse Resp BP Pulse Ox 01/12/18 06:20 98.8 F 72 17 135/80 94 L 01/11/18 23:21 97.3 F L 74 17 136/73 92 L 01/11/18 13:00 97.5 F L 82 16 145/70 96 Intake and Output 01/11/18 01/12/18 01/12/18 22:59 06:59 14:59 Output Total 1900 Balance -1900 Output: Urine 1900 Other: # Voids 2 Results - Lab Results Most recent lab results Calcium 8.8 mg/dL (8.4-10.2) 01/12/18 08:53 01/06/18 17:49 01/12/18 08:53 Assessment and Plan Plan: Assessment: 1. Nonoliguric acute kidney injury secondary to ATN secondary to hypotension and use of vancomycin. Urine eosinophils negative. Creatinine was 2.21 yesterday and is down to 1.98 today. 2. Metabolic acidosis secondary to acute kidney injury. 3. Left foot infection status post debridement and wound VAC placement on January 07. Wound culture positive for MRSA and Enterobacter. 4. Insulin-dependent diabetes mellitus. Plan: Continue normal saline at 75 mL an hour. Add oral sodium bicarbonate 650 mg twice daily. Avoid nephrotoxins. Repeat electrolytes in the morning. Thank you for the consultation. I will continue to follow the patient with you during his hospital stay.
[2018-01-12 11:35] LABS: Glucose,Whole Blood 217 mg/dL (75-99)
[2018-01-12] MEDS: SODIUM CHLORIDE 0.9% 1,000 ML IV SCH (12:23)
[2018-01-12] MEDS: SODIUM BICARBONATE TAB 650 MG TAB PO SCH ×2 (12:25→20:00)
[2018-01-12] MEDS: MULTIVITAMINS, THERA 1 EACH TAB PO SCH (12:26)
--- NOTE | 2018-01-12 13:53 | P.PN ---
Subjective Progress Note Date: 01/12/18 Principal diagnosis: Left foot infection Patient seen at bedside today. No complaints. He is status post I and D left foot on 01/07/18. Cultures have shown MRSA and he had PICC line placed. He denies fever, chills, chest pain. SOB. Objective - Vital Signs Vital signs: Vital Signs Temp 98.8 F 01/12/18 06:20 Pulse 72 01/12/18 06:20 Resp 17 01/12/18 06:20 BP 135/80 01/12/18 06:20 Pulse Ox 94 L 01/12/18 06:20 Intake & Output 01/11/18 01/12/18 01/12/18 18:59 06:59 18:59 Output Total 1900 Balance -1900 Output: Urine 1900 Other: # Voids 4 2 # Bowel Movements 3 - Exam Dressing taken down. No active bleeding. No fluctuance. Mild purulence at wound opening but not diffuse under tissue. Mild erythema surrounding incisions. Less than 2 sec cap refill and 2+ DP pulse present. NVI intact. - Constitutional General appearance: Present: no acute distress - Labs CBC & Chem 7: 01/06/18 17:49 01/12/18 08:53 Labs: Abnormal Lab Results - Last 24 Hours (Table) 01/11/18 01/11/18 01/12/18 Range/Units 18:30 20:47 07:01 Chloride (98-107) mmol/L Carbon Dioxide (22-30) mmol/L BUN (9-20) mg/dL Creatinine (0.66-1.25) mg/dL Glucose (74-99) mg/dL POC Glucose (mg/dL) 167 H 126 H (75-99) mg/dL U Random Total Protein 22 H (<12) mg/dL 01/12/18 01/12/18 Range/Units 08:53 11:27 Chloride 108 H (98-107) mmol/L Carbon Dioxide 19 L (22-30) mmol/L BUN 23 H (9-20) mg/dL Creatinine 1.98 H (0.66-1.25) mg/dL Glucose 174 H (74-99) mg/dL POC Glucose (mg/dL) 217 H (75-99) mg/dL U Random Total Protein (<12) mg/dL Microbiology - Last 24 Hours (Table) 01/07/18 19:56 Anaerobic Culture - Final Foot - Left 01/07/18 19:56 Anaerobic Culture - Final Foot - Left 01/06/18 17:49 Blood Culture - Preliminary Blood No Growth after 120 hours Assessment and Plan (1) Left foot infection Narrative/Plan: Continue wound care and daily dressing changes per ID. Recommend whirlpool or warm soapy soak 10-15 minutes today with dressing change. PICC line has been placed. Continue IV antibiotics. Continue Non weightbearing in boot. Will monitor closely and await ID final recommendations. Expect transfer to rehab in next 1-2 days. Current Visit: Yes Status: Acute Priority: Medium Code(s): L08.9 - LOCAL INFECTION OF THE SKIN AND SUBCUTANEOUS TISSUE, UNSP SNOMED Code(s): 911293542 Time with Patient: Less than 30
[2018-01-12 17:03] LABS: Glucose,Whole Blood 262 mg/dL (75-99)
--- NOTE | 2018-01-12 18:28 | P.PN ---
Subjective Progress Note Date: 01/12/18 Progress note being dictated for Dr. Sherwood Interval history: This is a 77-year-old gentleman admitted with left foot infection, status post I&D, wound VAC application with cultures reporting MRSA , Enterobacter species and multiple other medical issues. Maintained on IV antibiotics as per infectious disease. Worsening of renal function, creatinine 1.98. Blood sugars ranging in the low 100s to low 200s. Denies chest pain, palpitations or increased shortness of breath. Pain controlled. 01/11/2018 maintained on IV antibiotics as per infectious disease. Renal function continues to worsen, creatinine currently 2.21. Pain controlled. Diet intake remains fair, blood sugars currently running low 100s. Denies chest pain, palpitations or shortness of breath. 01/12/18 Iv antibiotics adjusted, with Vancomycin Dcd. Maintained on gentle IV fluid hydration, creatinine improving, down to 1.98. Urine studies in progress , evaluated by nephrology with recommendations noted. Pain controlled. Blood sugars ranging from 120s to 260s. Afebrile. Objective - Vital Signs Vital signs: Vital Signs Temp 98.4 F 01/12/18 15:00 Pulse 86 01/12/18 15:00 Resp 18 01/12/18 15:00 BP 143/74 01/12/18 15:00 Pulse Ox 96 01/12/18 15:00 Intake & Output 01/11/18 01/12/18 01/12/18 18:59 06:59 18:59 Output Total 1900 Balance -1900 Weight 97.069 kg Output: Urine 1900 Other: # Voids 4 2 4 # Bowel Movements 3 0 - Exam PHYSICAL EXAM: VITAL SIGNS: As above GENERAL: Sitting up in bed, no acute distress HEENT: Conjunctivae normal. eyes normal. Oral mucosa moist NECK: No JVD. No thyroid enlargement. No LNs CARDIOVASCULAR: S1, S2 muffled. No murmur RESPIRATION: Breath sounds diminished in the bases. No rhonchi or crackles. No bronchial breathing. ABDOMEN: Soft, nontender . No guarding. no masses palpable.Bowel sounds heard. EXTREMITIES: Left foot elevated, dressing intact, small amount of serosanguineous drainage on mid-inner aspect, toes warm and pink PSYCHIATRY: Alert and oriented -3, mood and affect normal. NERVOUS SYSTEM: Cranial N 2-12 grossly normal. Moves all 4 limbs. Diffuse weakness No focal deficits. Microbiology 01/07/18 19:56 Foot - Left Anaerobic Culture - Final 01/07/18 19:56 Foot - Left Anaerobic Culture - Final 01/06/18 17:49 Blood Blood Culture - Preliminary No Growth after 120 hours 01/07/18 19:56 Foot - Left Gram Stain - Final 01/07/18 19:56 Foot - Left Wound Culture - Final Methicillin resist S. aureus 01/07/18 19:56 Foot - Left Gram Stain - Final 01/07/18 19:56 Foot - Left Wound Culture - Final Enterobacter hormaechei Methicillin resist S. aureus 01/07/18 09:07 Foot - Left Gram Stain - Final 01/07/18 09:07 Foot - Left Wound Culture - Final - Labs CBC & Chem 7: 01/06/18 17:49 01/12/18 08:53 Labs: Abnormal Lab Results - Last 24 Hours (Table) 01/11/18 01/11/18 01/12/18 Range/Units 18:30 20:47 07:01 Chloride (98-107) mmol/L Carbon Dioxide (22-30) mmol/L BUN (9-20) mg/dL Creatinine (0.66-1.25) mg/dL Glucose (74-99) mg/dL POC Glucose (mg/dL) 167 H 126 H (75-99) mg/dL U Random Total Protein 22 H (<12) mg/dL 01/12/18 01/12/18 01/12/18 Range/Units 08:53 11:27 17:01 Chloride 108 H (98-107) mmol/L Carbon Dioxide 19 L (22-30) mmol/L BUN 23 H (9-20) mg/dL Creatinine 1.98 H (0.66-1.25) mg/dL Glucose 174 H (74-99) mg/dL POC Glucose (mg/dL) 217 H 262 H (75-99) mg/dL U Random Total Protein (<12) mg/dL Microbiology - Last 24 Hours (Table) 01/07/18 19:56 Anaerobic Culture - Final Foot - Left 01/07/18 19:56 Anaerobic Culture - Final Foot - Left 01/06/18 17:49 Blood Culture - Preliminary Blood No Growth after 120 hours Assessment and Plan Assessment: -Left foot infection, status post I&D, application of wound VAC with MRSA and Enterobacter hormaechei -History of left talonavicular fusion, left 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 -Diabetes mellitus type 2 -Hyponatremia,mild -Acute renal failure, possibly med induced, on vancomycin-now discontinued, converted to daptomycin, possibly related to infection. Plan: Continue on current medication regime , sodium bicarb monitoring and symptomatic treatment. Maintain IV fluid hydration.Close monitoring of renal function, electrolytes with repeat labs ordered for a.m. Levemir dose increased, close monitoring of Accu-Cheks. antibiotics adjusted as per ID. dressing change as per orthopedics. Further recommendations to follow. The impression and plan of care has been dictated as directed. : I performed a history and examination of this patient, discussed the same with the dictator. I agree with the dictator's note ,documented as a scribe. Any additional findings or plans will be noted.
[2018-01-12] MEDS: ATORVASTATIN 20 MG TAB PO SCH (20:00)
[2018-01-12 20:52] LABS: Creatinine 24 Hour,Urine 784.3 mg/24hr (1000.0-2000.0)
[2018-01-12 21:16] LABS: Glucose,Whole Blood 277 mg/dL (75-99)
[2018-01-12] MEDS: INSULIN DETEMIR 100 UNIT/ML 10 ML VIAL SQ SCH (21:28)
[2018-01-13 04:03] LABS: Glucose,Whole Blood 207 mg/dL (75-99)
[2018-01-13] MEDS: SODIUM CHLORIDE 0.9% 1,000 ML IV SCH ×2 (04:42→12:57)
[2018-01-13 07:36] LABS: Calcium 8.2 mg/dL (8.4-10.2); Potassium 4.3 mmol/L (3.5-5.1)
[2018-01-13 07:53] LABS: Glucose,Whole Blood 129 mg/dL (75-99)
[2018-01-13] MEDS: INSULIN ASPART 100 UNIT/ML 1 ML 10 ML VIAL SQ SCH ×4 (08:30→21:35)
[2018-01-13] MEDS: SODIUM BICARBONATE TAB 650 MG TAB PO SCH ×2 (08:34→20:42)
[2018-01-13] MEDS: DOCUSATE 100 MG CAP PO SCH ×3 (08:34→20:42)
[2018-01-13] MEDS: MULTIVITAMINS, THERA 1 EACH TAB PO SCH (08:34)
--- NOTE | 2018-01-13 11:22 | P.PN ---
Subjective Patient is seen in follow-up for acute kidney injury. Renal function is improving with creatinine down to 1.69 today. He's currently being treated for left foot infection and underwent [facility]man for the wound VAC placement this admission. Admits to good urine output. Oral intake is good. No vomiting or diarrhea. Vital signs are stable. General: The patient appeared well nourished and normally developed. HEENT: Head exam is unremarkable. Neck is without jugular venous distension. LUNGS: Lungs are clear to auscultation and percussion. Breath sounds decreased. HEART: Rate and Rhythm are regular. First and second heart sounds normal. No murmurs, rubs or gallops. ABDOMEN: Abdominal exam reveals normal bowel sounds. Non-tender and non- distended. No evidence of peritonitis. EXTREMITITES: No clubbing, cyanosis, or edema. Left lower extremity wrapped. No obvious drainage. Objective - Vital Signs Vital signs: Vital Signs Temp 97.8 F 01/13/18 07:00 Pulse 79 01/13/18 07:00 Resp 18 01/13/18 07:00 BP 134/70 01/13/18 07:00 Pulse Ox 95 01/13/18 07:00 Intake & Output 01/12/18 01/13/18 01/13/18 18:59 06:59 18:59 Intake Total 600 Balance 600 Weight 97.069 kg Intake: Oral 600 Other: Voiding Method Bedside Commode Urinal # Voids 4 2 # Bowel Movements 0 - Labs CBC & Chem 7: 01/06/18 17:49 01/13/18 06:46 Labs: Abnormal Lab Results - Last 24 Hours (Table) 01/11/18 01/12/18 01/12/18 Range/Units 20:15 11:27 17:01 Chloride (98-107) mmol/L BUN (9-20) mg/dL Creatinine (0.66-1.25) mg/dL Glucose (74-99) mg/dL POC Glucose (mg/dL) 217 H 262 H (75-99) mg/dL Calcium (8.4-10.2) mg/dL Ur Creatinine 24 Hour 784.3 L (1000.0-2000.0) mg/24hr 01/12/18 01/13/18 01/13/18 Range/Units 21:04 03:59 06:46 Chloride 110 H (98-107) mmol/L BUN 21 H (9-20) mg/dL Creatinine 1.69 H (0.66-1.25) mg/dL Glucose 130 H (74-99) mg/dL POC Glucose (mg/dL) 277 H 207 H (75-99) mg/dL Calcium 8.2 L (8.4-10.2) mg/dL Ur Creatinine 24 Hour (1000.0-2000.0) mg/24hr 01/13/18 Range/Units 07:29 Chloride (98-107) mmol/L BUN (9-20) mg/dL Creatinine (0.66-1.25) mg/dL Glucose (74-99) mg/dL POC Glucose (mg/dL) 129 H (75-99) mg/dL Calcium (8.4-10.2) mg/dL Ur Creatinine 24 Hour (1000.0-2000.0) mg/24hr Microbiology - Last 24 Hours (Table) 01/06/18 17:49 Blood Culture - Final Blood No Growth after 144 hours Assessment and Plan Plan: Assessment: 1. Nonoliguric acute kidney injury secondary to ATN secondary to hypotension and use of vancomycin. Urine eosinophils negative. Creatinine was 2.21 yesterday and is down to 1.69 today. 2. Metabolic acidosis secondary to acute kidney injury. Improved. 3. Left foot infection status post debridement and wound VAC placement on January 07. Wound culture positive for MRSA and Enterobacter. 4. Insulin-dependent diabetes mellitus. Plan: Continue normal saline at 75 mL an hour. Maintain oral sodium bicarbonate 650 mg twice daily. Avoid nephrotoxins. Repeat electrolytes in the morning.
[2018-01-13 11:42] LABS: Glucose,Whole Blood 149 mg/dL (75-99)
--- NOTE | 2018-01-13 15:39 | P.PN ---
Subjective Progress Note Date: 01/13/18 Progress note being dictated for Dr. Sherwood Interval history: This is a 77-year-old gentleman admitted with left foot infection, status post I&D, wound VAC application with cultures reporting MRSA , Enterobacter species and multiple other medical issues. Maintained on IV antibiotics as per infectious disease. Worsening of renal function, creatinine 1.98. Blood sugars ranging in the low 100s to low 200s. Denies chest pain, palpitations or increased shortness of breath. Pain controlled. 01/11/2018 maintained on IV antibiotics as per infectious disease. Renal function continues to worsen, creatinine currently 2.21. Pain controlled. Diet intake remains fair, blood sugars currently running low 100s. Denies chest pain, palpitations or shortness of breath. 01/12/18 Iv antibiotics adjusted, with Vancomycin Dcd. Maintained on gentle IV fluid hydration, creatinine improving, down to 1.98. Urine studies in progress , evaluated by nephrology with recommendations noted. Pain controlled. Blood sugars ranging from 120s to 260s. Afebrile. 01/13/18 maintained on gentle IV fluid hydration, renal function continues to improve, down to 1.69. Good diet intake, no nausea vomiting or diarrhea. Blood sugars controlled. Pain controlled. Objective - Vital Signs Vital signs: Vital Signs Temp 97.8 F 01/13/18 07:00 Pulse 79 01/13/18 07:00 Resp 18 01/13/18 07:00 BP 134/70 01/13/18 07:00 Pulse Ox 95 01/13/18 07:00 Intake & Output 01/12/18 01/13/18 01/13/18 18:59 06:59 18:59 Intake Total 600 Balance 600 Weight 97.069 kg Intake: Oral 600 Other: Voiding Method Bedside Commode Urinal # Voids 4 2 # Bowel Movements 0 - Exam PHYSICAL EXAM: VITAL SIGNS: As above GENERAL: Sitting up at side of bed no acute distress. HEENT: Conjunctivae normal. eyes normal. Oral mucosa moist NECK: No JVD. No thyroid enlargement. No LNs CARDIOVASCULAR: S1, S2 muffled. No murmur RESPIRATION: Breath sounds diminished in the bases. No rhonchi or crackles. ABDOMEN: Soft, nontender . No guarding. no masses palpable.Bowel sounds heard. EXTREMITIES: Left foot elevated, dressing clean, dry, intact, toes warm and pink PSYCHIATRY: Alert and oriented -3, mood and affect normal. NERVOUS SYSTEM: Cranial N 2-12 grossly normal. Moves all 4 limbs. Diffuse weakness No focal deficits. Microbiology 01/07/18 19:56 Foot - Left Anaerobic Culture - Final 01/07/18 19:56 Foot - Left Anaerobic Culture - Final 01/06/18 17:49 Blood Blood Culture - Preliminary No Growth after 120 hours 01/07/18 19:56 Foot - Left Gram Stain - Final 01/07/18 19:56 Foot - Left Wound Culture - Final Methicillin resist S. aureus 01/07/18 19:56 Foot - Left Gram Stain - Final 01/07/18 19:56 Foot - Left Wound Culture - Final Enterobacter hormaechei Methicillin resist S. aureus 01/07/18 09:07 Foot - Left Gram Stain - Final 01/07/18 09:07 Foot - Left Wound Culture - Final - Labs CBC & Chem 7: 01/06/18 17:49 01/13/18 06:46 Labs: Abnormal Lab Results - Last 24 Hours (Table) 01/11/18 01/12/18 01/12/18 Range/Units 20:15 17:01 21:04 Chloride (98-107) mmol/L BUN (9-20) mg/dL Creatinine (0.66-1.25) mg/dL Glucose (74-99) mg/dL POC Glucose (mg/dL) 262 H 277 H (75-99) mg/dL Calcium (8.4-10.2) mg/dL Ur Creatinine 24 Hour 784.3 L (1000.0-2000.0) mg/24hr 01/13/18 01/13/18 01/13/18 Range/Units 03:59 06:46 07:29 Chloride 110 H (98-107) mmol/L BUN 21 H (9-20) mg/dL Creatinine 1.69 H (0.66-1.25) mg/dL Glucose 130 H (74-99) mg/dL POC Glucose (mg/dL) 207 H 129 H (75-99) mg/dL Calcium 8.2 L (8.4-10.2) mg/dL Ur Creatinine 24 Hour (1000.0-2000.0) mg/24hr 01/13/18 Range/Units 11:38 Chloride (98-107) mmol/L BUN (9-20) mg/dL Creatinine (0.66-1.25) mg/dL Glucose (74-99) mg/dL POC Glucose (mg/dL) 149 H (75-99) mg/dL Calcium (8.4-10.2) mg/dL Ur Creatinine 24 Hour (1000.0-2000.0) mg/24hr Microbiology - Last 24 Hours (Table) 01/06/18 17:49 Blood Culture - Final Blood No Growth after 144 hours Assessment and Plan Assessment: -Left foot infection, status post I&D, application of wound VAC with MRSA and Enterobacter hormaechei -History of left talonavicular fusion, left 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 -Diabetes mellitus type 2 -Hyponatremia,mild -Acute renal failure, possibly med induced, on vancomycin-now discontinued, converted to daptomycin, improving. Plan: Continue on current medication regime , sodium bicarb monitoring and symptomatic treatment. Maintain IV fluid hydration.Close monitoring of renal function, electrolytes with repeat labs ordered for a.m. maintain current Levemir dose, close monitoring of Accu-Cheks. Discharge planning in progress as per orthopedic surgery. The impression and plan of care has been dictated as directed. : I performed a history and examination of this patient, discussed the same with the dictator. I agree with the dictator's note ,documented as a scribe. Any additional findings or plans will be noted.
[2018-01-13 17:03] LABS: Glucose,Whole Blood 248 mg/dL (75-99)
[2018-01-13] MEDS: metFORMIN 500 MG TAB PO SCH (18:18)
[2018-01-13] MEDS: ATORVASTATIN 20 MG TAB PO SCH (20:42)
[2018-01-13 21:00] LABS: Glucose,Whole Blood 199 mg/dL (75-99)
[2018-01-13] MEDS: INSULIN DETEMIR 100 UNIT/ML 10 ML VIAL SQ SCH (21:35)
--- NOTE | 2018-01-13 22:54 | P.PN ---
Subjective Progress Note Date: 01/13/18 77 year old male presents to Hospital after being evaluated by orthopedics because of difficulties with his left foot. The patient has a known history of a Charcot foot to the left side. The following wound healing center for many months. 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 However the patient had significant deformity to the foot and he was sent to the orthopedic foot and ankle specialist and he has not been taking to the operating room on 2017 for the midfoot osteotomy and talonavicular fusion. Surgery went well but is now presenting with swelling erythema and some drainage to the site. Pleasant and relates unfortunately he is not having much pain is not having high -grade fever chills or rigors. Infectious disease was requested regarding antibiotic therapy. 01/10/2018 Better at this point in time denies new troubles. Recovering well from surgery. No fevers or chills 01/13/2018 patient is showing some improvement. He is denying intermittent troubles. Having no great difficulty since the recent surgery. They're working on his discharge plan. Objective - Vital Signs Vital signs: Vital Signs Temp 98.4 F 01/13/18 15:00 Pulse 70 01/13/18 20:07 Resp 16 01/13/18 20:07 BP 129/70 01/13/18 15:00 Pulse Ox 94 L 01/13/18 15:00 Intake & Output 01/13/18 01/13/18 01/14/18 06:59 18:59 06:59 Intake Total 600 Balance 600 Intake: Oral 600 Other: Voiding Method Bedside Commode Toilet Urinal # Voids 2 3 # Bowel Movements 1 - Exam Pleasant 77-year-old male who is comfortable at this time who is not in acute distress HEENT: Anicteric conjunctiva are pink and moist nasal mucosa grossly intact without significant lesions, there is no thrush. Neck: The neck is supple without significant lymphadenopathy or thyromegaly. Lungs: Good bilateral air entry without significant crackles or wheezing. There is no significant bronchial sounds. There is no egophony or dullness. Heart: Regular rate and rhythm with an audible S1-S2, no S3 no S4. There is no significant murmur click or rub, PMI was nondisplaced. Abdomen: Positive bowel sounds soft and nontender without palpable masses or organomegaly. There was no guarding or rebound. Extremities: The upper extremities have excellent pulses they are symmetric, no significant petechiae or telangiectasia. No splinter hemorrhages were noted. Right lower extremity without abnormalities. The left foot is evaluated. The surgical wounds have evidence of some erythema some drainage some tenderness no patrick crepitance or fluctuance. There is minimal erythema ascends. No lymphadenopathy in the left groin and no other abnormal lymph nodes are noted Neuro: Awake alert oriented to person place and time. There are no acute new gross focal sensory motor deficits except his peripheral neuropathy especially at the feet - Labs CBC & Chem 7: 01/06/18 17:49 01/13/18 06:46 Labs: Abnormal Lab Results - Last 24 Hours (Table) 01/13/18 01/13/18 01/13/18 Range/Units 03:59 06:46 07:29 Chloride 110 H (98-107) mmol/L BUN 21 H (9-20) mg/dL Creatinine 1.69 H (0.66-1.25) mg/dL Glucose 130 H (74-99) mg/dL POC Glucose (mg/dL) 207 H 129 H (75-99) mg/dL Calcium 8.2 L (8.4-10.2) mg/dL 01/13/18 01/13/18 01/13/18 Range/Units 11:38 17:01 20:53 Chloride (98-107) mmol/L BUN (9-20) mg/dL Creatinine (0.66-1.25) mg/dL Glucose (74-99) mg/dL POC Glucose (mg/dL) 149 H 248 H 199 H (75-99) mg/dL Calcium (8.4-10.2) mg/dL Microbiology - Last 24 Hours (Table) 01/06/18 17:49 Blood Culture - Final Blood No Growth after 144 hours Laboratory Results WBC 10.5 k/uL (3.8-10.6) 01/06/18 17:49 RBC 4.04 m/uL (4.30-5.90) L 01/06/18 17:49 Hgb 11.2 gm/dL (13.0-17.5) L 01/06/18 17:49 Hct 35.5 % (39.0-53.0) L 01/06/18 17:49 MCV 87.9 fL (80.0-100.0) 01/06/18 17:49 MCH 27.8 pg (25.0-35.0) 01/06/18 17:49 MCHC 31.7 g/dL (31.0-37.0) 01/06/18 17:49 RDW 15.1 % (11.5-15.5) 01/06/18 17:49 Plt Count 572 k/uL (150-450) H 01/06/18 17:49 Neutrophils % 77 % 01/06/18 17:49 Lymphocytes % 15 % 01/06/18 17:49 Monocytes % 5 % 01/06/18 17:49 Eosinophils % 2 % 01/06/18 17:49 Basophils % 0 % 01/06/18 17:49 Neutrophils # 8.0 k/uL (1.3-7.7) H 01/06/18 17:49 Lymphocytes # 1.6 k/uL (1.0-4.8) 01/06/18 17:49 Monocytes # 0.5 k/uL (0-1.0) 01/06/18 17:49 Eosinophils # 0.2 k/uL (0-0.7) 01/06/18 17:49 Basophils # 0.0 k/uL (0-0.2) 01/06/18 17:49 Hypochromasia Slight 01/06/18 17:49 ESR 111 mm/hr (0-15) H 01/06/18 17:49 Sodium 142 mmol/L (137-145) 01/13/18 06:46 Potassium 4.3 mmol/L (3.5-5.1) 01/13/18 06:46 Chloride 110 mmol/L (98-107) H 01/13/18 06:46 Carbon Dioxide 23 mmol/L (22-30) 01/13/18 06:46 Anion Gap 9 mmol/L 01/13/18 06:46 BUN 21 mg/dL (9-20) H 01/13/18 06:46 Creatinine 1.69 mg/dL (0.66-1.25) H 01/13/18 06:46 Est GFR (CKD-EPI)AfAm 45 (>60 ml/min/1.73 sqM) 01/13/18 06:46 Est GFR (CKD-EPI)NonAf 39 (>60 ml/min/1.73 sqM) 01/13/18 06:46 Glucose 130 mg/dL (74-99) H 01/13/18 06:46 POC Glucose (mg/dL) 199 mg/dL (75-99) H 01/13/18 20:53 POC Glu Tong Setter Emilie Zhou 01/13/18 20:[address] Glu mg/dL 243 01/07/18 06:50 Hemoglobin A1c 10.1 % (4.0-6.0) H 01/07/18 06:50 Calcium 8.2 mg/dL (8.4-10.2) L 01/13/18 06:46 Total Bilirubin 0.5 mg/dL (0.2-1.3) 01/06/18 17:49 AST 31 U/L (17-59) 01/06/18 17:49 ALT 55 U/L (21-72) 01/06/18 17:49 Alkaline Phosphatase 81 U/L (38-126) 01/06/18 17:49 C-Reactive Protein 51.1 mg/L (<10.0) H 01/06/18 17:49 Total Protein 7.2 g/dL (6.3-8.2) 01/06/18 17:49 Albumin 3.4 g/dL (3.5-5.0) L 01/06/18 17:49 Urine Color Yellow 01/07/18 00:45 Urine Appearance Clear (Clear) 01/07/18 00:45 Urine pH 5.0 (5.0-8.0) 01/07/18 00:45 Ur Specific [place] 1.015 (1.001-1.035) 01/07/18 00:45 Urine Protein Trace (Negative) H 01/07/18 00:45 Urine Glucose (UA) Negative (Negative) 01/07/18 00:45 Urine Ketones Negative (Negative) 01/07/18 00:45 Urine Blood Negative (Negative) 01/07/18 00:45 Urine Nitrite Negative (Negative) 01/07/18 00:45 Urine Bilirubin Negative (Negative) 01/07/18 00:45 Urine Urobilinogen <2.0 mg/dL (<2.0) 01/07/18 00:45 Ur Leukocyte Esterase Negative (Negative) 01/07/18 00:45 Urine Eosinophils 0 % 01/11/18 18:30 Urine Osmolality 257 mosm/kg (50-1400) 01/11/18 18:30 U Random Total Protein 22 mg/dL (<12) H 01/11/18 18:30 Ur Random Sodium 70 mmol/L 01/11/18 18:30 Urine Collection Time 24 hrs 01/11/18 20:15 Ur 24 Hour Volume 2300 mls (250-2400) 01/11/18 20:15 Ur Creatinine 24 Hour 784.3 mg/24hr (1000.0-2000.0) L 01/11/18 20:15 Vancomycin Trough 13.5 ug/mL 01/09/18 06:55 Random Vancomycin 18.9 ug/mL 01/11/18 08:06 Microbiology 01/06/18 17:49 Blood Blood Culture - Final No Growth after 144 hours 01/07/18 19:56 Foot - Left Anaerobic Culture - Final 01/07/18 19:56 Foot - Left Anaerobic Culture - Final 01/07/18 19:56 Foot - Left Gram Stain - Final 01/07/18 19:56 Foot - Left Wound Culture - Final Methicillin resist S. aureus 01/07/18 19:56 Foot - Left Gram Stain - Final 01/07/18 19:56 Foot - Left Wound Culture - Final Enterobacter hormaechei Methicillin resist S. aureus 01/07/18 09:07 Foot - Left Gram Stain - Final 01/07/18 09:07 Foot - Left Wound Culture - Final Assessment and Plan (1) Charcot's joint of foot Current Visit: No Status: Acute Priority: Medium Code(s): M14.679 - CHARCOT'S JOINT, UNSPECIFIED ANKLE AND FOOT SNOMED Code(s): 335359700 (2) Left foot infection Narrative/Plan: 77-year-old male who comes from [facility] receive his medical care, had been long-standing patient wound healing center with total contact casting. Excellent resolution of the plantar ulcerations. Given the extensive Charcot foot and was sent to the orthopedic foot and ankle specialist where he underwent reconstruction at the Charcot site reduce pressure and resolve his chronic ulceration issues. Approximately 14 days after surgery is now developed some erythema swelling and drainage and has been admitted. The operating room for incision and drainage. Patient has prior cultures Zosyn and vancomycin will be utilized for now we have further data. I do inquire with his significant other if he needs outpatient continuous antibiotic therapy how that will work. Apparently they would be willing to go back to [place] needed for antibiotics and local wound care. Ensure adequate blood glucose control protein supplementation and a multivitamin while patients hospitalized. 01/10/2018 patient is much more comfortable. For the getting back to [facility]. Surgical notes are reviewed. Culture shows evidence of MSSA and Enterobacter species. There is a potential for utilizing oral antibiotic therapy with trimethoprim sulfamethoxazole. We'll recheck his creatinine in the morning to make sure that it is back to his baseline. Local wound care with silver alginate dressing can be arranged in the outpatient setting. We'll work with orthopedics regarding the discharge plan, his boot is already available. 01/13/2018 Patient is doing better. Case is discussed with the primary team and the patient will enter rehab to complete his course of antibiotic therapy received local wound care and therapy. The case and discussed with the orthopedic team at the time debridement there was concern of infection down to the bony structure. Consequently planned 42 days of therapy. Ceftriaxone will be utilized for the Enterobacter. Patient was on vancomycin but developed acute renal failure and consequently was transitioned to daptomycin. Extended care will not accept daptomycin consider transitioning to Linezolide to complete the therapy for the MRSA isolate with local wound care Current Visit: Yes Status: Acute Priority: Medium Code(s): L08.9 - LOCAL INFECTION OF THE SKIN AND SUBCUTANEOUS TISSUE, UNSP SNOMED Code(s): 201606241
[2018-01-14] MEDS: SODIUM CHLORIDE 0.9% 1,000 ML IV SCH (07:09)
[2018-01-14 07:33] LABS: Glucose,Whole Blood 119 mg/dL (75-99)
[2018-01-14] MEDS: INSULIN ASPART 100 UNIT/ML 1 ML 10 ML VIAL SQ SCH ×4 (07:42→21:18)
[2018-01-14] MEDS: SODIUM BICARBONATE TAB 650 MG TAB PO SCH ×2 (07:44→20:22)
[2018-01-14] MEDS: metFORMIN 500 MG TAB PO SCH ×2 (07:44→17:44)
[2018-01-14] MEDS: MULTIVITAMINS, THERA 1 EACH TAB PO SCH (07:45)
[2018-01-14] MEDS: DOCUSATE 100 MG CAP PO SCH ×2 (07:49→20:23)
[2018-01-14 08:35] LABS: Calcium 9.1 mg/dL (8.4-10.2); Potassium 4.7 mmol/L (3.5-5.1)
[2018-01-14] MEDS: DAPTOmycin 500 MG in SODIUM CHLORIDE 0.9% 50 ML IVPB SCH (09:52)
--- NOTE | 2018-01-14 11:57 | P.DS ---
Providers Date of admission: 01/06/18 17:04 Expected date of discharge: 01/14/18 Attending physician: Bong Davis Consults: 01/06/18 15:33 Consult Physician Routine Consulting Provider: Dylan Cardona Consult Reason/Comments: medical management Do you want consulting provider notified?: Yes 01/06/18 15:34 Consult Physician Routine Consulting Provider: Joao Melendez Consult Reason/Comments: antibiotic and wound care recommendations. Do you want consulting provider notified?: Yes 01/11/18 14:09 Consult Physician Routine Consulting Provider: Leeroy Trevino Consult Reason/Comments: kidney function Do you want consulting provider notified?: Yes Primary care physician: Dylan Cardona - Discharge Diagnosis(es) (1) Left foot infection Patient was admitted to the OR on 01/07/2018 to undergo I and D of left foot surgical wounds. He had failed conservative measures as an outpatient. He underwent the above procedure which he tolerated well without complication. Postoperative hospital course has remained without complication. He has been on IV antibiotics where cultures have shown staph aureus. A PICC line has been placed and infectious disease has recommended continued IV antibiotics with daily wound care. On day of discharge he is afebrile, vital signs stable, labs within acceptable ranges, tolerating by mouth meds and diet, voiding without difficulty, positive flatus, denies abdominal pain or calf pain, pain is controlled on oral pain medication and has no new complaints. Wounds are stable , neurovascular status is intact, calf is soft and nontender, abdomen soft and nontender. Review of systems is negative for numbness, tingling, fever, chills , chest pain, shortness breath, nausea, vomiting, dizziness, headaches, slurred speech or other. Current Visit: Yes Status: Acute Priority: Medium Procedures: I and D left foot Patient Condition at Discharge: Stable Plan - Discharge Summary Discharge Rx Participant: No New Discharge Prescriptions: New cefTRIAXone [Rocephin] 1,000 mg IVP Q24H #42 ml Linezolid 600 mg PO BID #28 tablet No Action Lisinopril [Zestril] 10 mg PO DAILY metFORMIN HCL 1,000 mg PO BID Simvastatin 40 mg PO HS Insulin Glargine,Hum.rec.anlog [[place]jeo Solostar] 60 units SQ HS Docusate [Colace] 100 mg PO BID #60 capsule HYDROcodone/APAP 5-325MG [[place] 5-325] 1 tab PO Q4HR PRN #42 tab PRN Reason: Pain glipiZIDE [Glucotrol] 5 mg PO DAILY tab Aspirin EC [Ecotrin Low Dose] 81 mg PO DAILY Discharge Medication List Lisinopril [Zestril] 10 mg PO DAILY 01/11/17 [History] Simvastatin 40 mg PO HS 01/11/17 [History] metFORMIN HCL 1,000 mg PO BID 01/11/17 [History] Insulin Glargine,Hum.rec.anlog [[place]je[place] Solostar] 60 units SQ HS 04/07/17 [ History] Docusate [Colace] 100 mg PO BID #60 capsule 12/28/17 [Rx] HYDROcodone/APAP 5-325MG [[place] 5-325] 1 tab PO Q4HR PRN #42 tab 12/28/17 [Rx] glipiZIDE [Glucotrol] 5 mg PO DAILY tab 12/28/17 [Rx] Aspirin EC [Ecotrin Low Dose] 81 mg PO DAILY 01/06/18 [History] cefTRIAXone [Rocephin] 1,000 mg IVP Q24H #42 ml 01/11/18 [Rx] Linezolid 600 mg PO BID #28 tablet 01/13/18 [Rx] Follow up Appointment(s)/Referral(s): Dylan Cardona MD [Primary Care Provider] - 1 Week (After DC from subacute rehab ) Roberto Carlos Guerra DO [STAFF PHYSICIAN] - 3 Days ([facility]) Joao Melendez MD [STAFF PHYSICIAN] - 1 Week (Wound Center) Leeroy Trevino DO [STAFF PHYSICIAN] - 1 Week Ambulatory/Diagnostic Orders: Basic Metabolic Panel [LAB.AMB] Location: None Selected Complete Blood Count w/diff [LAB.AMB] Location: None Selected C Reactive Protein [LAB.AMB] Location: None Selected Erythrocyte Sedimentation Rate [LAB.AMB] Location: None Selected Vancomycin,Trough [LAB.AMB] Location: None Selected Patient Instructions/Handouts: MRSA (Methicillin-Resistant Staphylococcus Aureus) (DC), Type 2 Diabetes in Adults: New Diagnosis (DC), Fall Prevention for Older Adults (ED), Incision and Drainage (DC) Activity/Diet/Wound Care/Special Instructions: STEVE PICC line inserted 01/11/18 consistent carb diet non weight bearing L foot DAILY soak foot with soap/water 10-15 min prior to dressing change 1/4 INCH iodoform packing, tessa ford, CARROL
[2018-01-14 12:02] LABS: Glucose,Whole Blood 137 mg/dL (75-99)
--- NOTE | 2018-01-14 13:42 | P.PN ---
Subjective Progress Note Date: 01/14/18 Progress note being dictated for Dr. Sherwood Interval history: This is a 77-year-old gentleman admitted with left foot infection, status post I&D, wound VAC application with cultures reporting MRSA , Enterobacter species and multiple other medical issues. Maintained on IV antibiotics as per infectious disease. Worsening of renal function, creatinine 1.98. Blood sugars ranging in the low 100s to low 200s. Denies chest pain, palpitations or increased shortness of breath. Pain controlled. 01/11/2018 maintained on IV antibiotics as per infectious disease. Renal function continues to worsen, creatinine currently 2.21. Pain controlled. Diet intake remains fair, blood sugars currently running low 100s. Denies chest pain, palpitations or shortness of breath. 01/12/18 Iv antibiotics adjusted, with Vancomycin Dcd. Maintained on gentle IV fluid hydration, creatinine improving, down to 1.98. Urine studies in progress , evaluated by nephrology with recommendations noted. Pain controlled. Blood sugars ranging from 120s to 260s. Afebrile. 01/13/18 maintained on gentle IV fluid hydration, renal function continues to improve, down to 1.69. Good diet intake, no nausea vomiting or diarrhea. Blood sugars controlled. Pain controlled. 01/14/2018 maintained on IV antibiotics ,creatinine 1.72. Good diet intake no nausea vomiting or diarrhea. Pain controlled. Discharge planning in progress for today to subacute rehab as per orthopedic surgery. Denies chest pain, palpitations or increased shortness of breath. Denies any focal deficits. Objective - Vital Signs Vital signs: Vital Signs Temp 97.8 F 01/14/18 06:36 Pulse 76 01/14/18 06:36 Resp 18 01/14/18 06:36 BP 151/77 01/14/18 06:36 Pulse Ox 93 L 01/14/18 06:36 Intake & Output 01/13/18 01/14/18 01/14/18 18:59 06:59 18:59 Intake Total 100 Balance 100 Intake: Oral 100 Other: Voiding Method Toilet # Voids 3 1 # Bowel Movements 1 - Exam PHYSICAL EXAM: VITAL SIGNS: As above GENERAL: Sitting up at side of bed no acute distress. HEENT: Conjunctivae normal. eyes normal. Oral mucosa moist NECK: No JVD. No thyroid enlargement. No LNs CARDIOVASCULAR: S1, S2 muffled. No murmur RESPIRATION: Breath sounds diminished in the bases. No rhonchi or crackles. ABDOMEN: Soft, nontender . No guarding. no masses palpable.Bowel sounds heard. EXTREMITIES: Left foot elevated, dressing clean, dry, intact, toes warm and pink PSYCHIATRY: Alert and oriented -3, mood and affect normal. NERVOUS SYSTEM: Cranial N 2-12 grossly normal. Moves all 4 limbs. Diffuse weakness No focal deficits. Microbiology 01/07/18 19:56 Foot - Left Anaerobic Culture - Final 01/07/18 19:56 Foot - Left Anaerobic Culture - Final 01/06/18 17:49 Blood Blood Culture - Preliminary No Growth after 120 hours 01/07/18 19:56 Foot - Left Gram Stain - Final 01/07/18 19:56 Foot - Left Wound Culture - Final Methicillin resist S. aureus 01/07/18 19:56 Foot - Left Gram Stain - Final 01/07/18 19:56 Foot - Left Wound Culture - Final Enterobacter hormaechei Methicillin resist S. aureus 01/07/18 09:07 Foot - Left Gram Stain - Final 01/07/18 09:07 Foot - Left Wound Culture - Final - Labs CBC & Chem 7: 01/06/18 17:49 01/14/18 08:07 Labs: Abnormal Lab Results - Last 24 Hours (Table) 01/13/18 01/13/18 01/14/18 Range/Units 17:01 20:53 07:20 Chloride (98-107) mmol/L BUN (9-20) mg/dL Creatinine (0.66-1.25) mg/dL Glucose (74-99) mg/dL POC Glucose (mg/dL) 248 H 199 H 119 H (75-99) mg/dL 01/14/18 01/14/18 Range/Units 08:07 11:34 Chloride 109 H (98-107) mmol/L BUN 22 H (9-20) mg/dL Creatinine 1.72 H (0.66-1.25) mg/dL Glucose 118 H (74-99) mg/dL POC Glucose (mg/dL) 137 H (75-99) mg/dL Assessment and Plan Assessment: -Left foot infection, status post I&D, application of wound VAC with MRSA and Enterobacter hormaechei -History of left talonavicular fusion, left 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 -Diabetes mellitus type 2 -Hyponatremia,mild -Acute renal failure, possibly med induced, on vancomycin-now discontinued, converted to daptomycin, improving. Plan: Continue on current medication regime , sodium bicarb monitoring and symptomatic treatment. Discharge planning in progress as per orthopedic surgery. Close monitoring of renal function and Accu-Cheks. Further recommendations to follow. The impression and plan of care has been dictated as directed. : I performed a history and examination of this patient, discussed the same with the dictator. I agree with the dictator's note ,documented as a scribe. Any additional findings or plans will be noted.
--- NOTE | 2018-01-14 13:52 | P.PN ---
Subjective Patient is seen in follow-up for acute kidney injury. Renal function is stable with creatinine of 1.72 today. He's currently being treated for left foot infection and underwent debridement with wound VAC placement this admission. Admits to good urine output. Oral intake is good. No vomiting or diarrhea. Vital signs are stable. General: The patient appeared well nourished and normally developed. HEENT: Head exam is unremarkable. Neck is without jugular venous distension. LUNGS: Lungs are clear to auscultation and percussion. Breath sounds decreased. HEART: Rate and Rhythm are regular. First and second heart sounds normal. No murmurs, rubs or gallops. ABDOMEN: Abdominal exam reveals normal bowel sounds. Non-tender and non- distended. No evidence of peritonitis. EXTREMITITES: No clubbing, cyanosis, or edema. Left lower extremity wrapped. No obvious drainage. Objective - Vital Signs Vital signs: Vital Signs Temp 97.8 F 01/14/18 06:36 Pulse 76 01/14/18 06:36 Resp 18 01/14/18 06:36 BP 151/77 01/14/18 06:36 Pulse Ox 93 L 01/14/18 06:36 Intake & Output 01/13/18 01/14/18 01/14/18 18:59 06:59 18:59 Intake Total 100 Balance 100 Intake: Oral 100 Other: Voiding Method Toilet # Voids 3 1 # Bowel Movements 1 - Labs CBC & Chem 7: 01/06/18 17:49 01/14/18 08:07 Labs: Abnormal Lab Results - Last 24 Hours (Table) 01/13/18 01/13/18 01/14/18 Range/Units 17:01 20:53 07:20 Chloride (98-107) mmol/L BUN (9-20) mg/dL Creatinine (0.66-1.25) mg/dL Glucose (74-99) mg/dL POC Glucose (mg/dL) 248 H 199 H 119 H (75-99) mg/dL 01/14/18 01/14/18 Range/Units 08:07 11:34 Chloride 109 H (98-107) mmol/L BUN 22 H (9-20) mg/dL Creatinine 1.72 H (0.66-1.25) mg/dL Glucose 118 H (74-99) mg/dL POC Glucose (mg/dL) 137 H (75-99) mg/dL Assessment and Plan Plan: Assessment: 1. Nonoliguric acute kidney injury secondary to ATN secondary to hypotension and use of vancomycin. Urine eosinophils negative. Creatinine was 2.21 yesterday and is stable at 1.72 today. 2. Metabolic acidosis secondary to acute kidney injury. Improved. 3. Left foot infection status post debridement and wound VAC placement on January 07. Wound culture positive for MRSA and Enterobacter. 4. Insulin-dependent diabetes mellitus. Plan: Hep-Lock IV fluids. Maintain oral sodium bicarbonate 650 mg twice daily. Avoid nephrotoxins. Awaits d/c to rehab.
[2018-01-14 16:56] LABS: Glucose,Whole Blood 175 mg/dL (75-99)
[2018-01-14] MEDS: ATORVASTATIN 20 MG TAB PO SCH (20:22)
[2018-01-14 20:53] LABS: Glucose,Whole Blood 231 mg/dL (75-99)
[2018-01-14] MEDS: INSULIN DETEMIR 100 UNIT/ML 10 ML VIAL SQ SCH (21:20)
[2018-01-15 07:35] LABS: Basophils % (A) 1 %; Eosinophils # (A) 0.3 k/uL (0-0.7); Eosinophils % (A) 4 %; HCT 30.8 % (39.0-53.0); HGB 10.1 gm/dL (13.0-17.5); Hypochromasia Slight; Lymphocytes # (A) 1.1 k/uL (1.0-4.8); Lymphocytes % (A) 15 %; MCH 28.5 pg (25.0-35.0); MCHC 32.6 g/dL (31.0-37.0); MCV 87.2 fL (80.0-100.0); Mean Platelet Volume 6.7; Monocytes # (A) 0.4 k/uL (0-1.0); Monocytes % (A) 5 %; Neutrophils # (A) 5.7 k/uL (1.3-7.7); Neutrophils % (A) 75 %; Platelet Count 272 k/uL (150-450); RBC 3.54 m/uL (4.30-5.90); RDW 15.4 % (11.5-15.5); WBC 7.6 k/uL (3.8-10.6)
[2018-01-15 07:48] LABS: Glucose,Whole Blood 77 mg/dL (75-99)
[2018-01-15] MEDS: INSULIN ASPART 100 UNIT/ML 1 ML 10 ML VIAL SQ SCH ×4 (07:56→21:08)
[2018-01-15] MEDS: SODIUM BICARBONATE TAB 650 MG TAB PO SCH ×2 (08:06→20:59)
[2018-01-15] MEDS: metFORMIN 500 MG TAB PO SCH ×2 (08:06→17:36)
[2018-01-15] MEDS: DOCUSATE 100 MG CAP PO SCH ×2 (08:06→20:59)
--- NOTE | 2018-01-15 08:07 | P.PN ---
Subjective Progress Note Date: 01/15/18 This is a 77-year-old male who is status post I&D of the left foot on 2017. Patient states that his pain is well controlled and he is soaking the foot twice a day. Patient denies any new complaints.Patient denies any fever/ chills, numbness, weakness, tingling, abdominal pain, shortness of breath or chest pain. Objective - Vital Signs Vital signs: Vital Signs Temp 98.7 F 01/15/18 06:19 Pulse 70 01/15/18 06:19 Resp 18 01/15/18 06:19 BP 147/75 01/15/18 06:19 Pulse Ox 94 L 01/15/18 06:19 Intake & Output 01/14/18 01/15/18 01/15/18 18:59 06:59 18:59 Intake Total 1600 Balance 1600 Intake: Oral 1600 Other: # Voids 3 3 # Bowel Movements 1 1 - Exam Dressing is clean, dry and intact. Patient has good range of motion of the left ankle and foot. Neurovascular status and circulatory status are intact. - Labs CBC & Chem 7: 01/15/18 07:11 01/14/18 08:07 Labs: Abnormal Lab Results - Last 24 Hours (Table) 01/14/18 01/14/18 01/14/18 Range/Units 08:07 11:34 16:42 RBC (4.30-5.90) m/uL Hgb (13.0-17.5) gm/dL Hct (39.0-53.0) % Chloride 109 H (98-107) mmol/L BUN 22 H (9-20) mg/dL Creatinine 1.72 H (0.66-1.25) mg/dL Glucose 118 H (74-99) mg/dL POC Glucose (mg/dL) 137 H 175 H (75-99) mg/dL 01/14/18 01/15/18 Range/Units 20:45 07:11 RBC 3.54 L (4.30-5.90) m/uL Hgb 10.1 L (13.0-17.5) gm/dL Hct 30.8 L (39.0-53.0) % Chloride (98-107) mmol/L BUN (9-20) mg/dL Creatinine (0.66-1.25) mg/dL Glucose (74-99) mg/dL POC Glucose (mg/dL) 231 H (75-99) mg/dL Assessment and Plan Plan: 1. Continue wound care, warm soaks and daily dressing changes per infectious disease. 2. Continue IV antibiotics per infectious disease. 3. Patient is to be nonweightbearing in a boot. 4. Anticipate discharge to rehab on Wednesday.
[2018-01-15 08:15] LABS: Albumin 2.9 g/dL (3.5-5.0); Calcium 8.7 mg/dL (8.4-10.2); Potassium 4.4 mmol/L (3.5-5.1); Total Bilirubin 0.4 mg/dL (0.2-1.3); Total Protein 6.2 g/dL (6.3-8.2)
--- NOTE | 2018-01-15 08:49 | P.PN ---
Subjective Patient is seen in follow-up for acute kidney injury. Renal function is stable with creatinine at 1.72 today. He's currently being treated for left foot infection and underwent debridement with wound VAC placement this admission. Admits to good urine output. Oral intake is good. No vomiting or diarrhea. Awaits placement to rehab. No active complaints at this time. Vital signs are stable. General: The patient appeared well nourished and normally developed. HEENT: Head exam is unremarkable. Neck is without jugular venous distension. LUNGS: Lungs are clear to auscultation and percussion. Breath sounds decreased. HEART: Rate and Rhythm are regular. First and second heart sounds normal. No murmurs, rubs or gallops. ABDOMEN: Abdominal exam reveals normal bowel sounds. Non-tender and non- distended. No evidence of peritonitis. EXTREMITITES: No clubbing, cyanosis, or edema. Left lower extremity wrapped. No obvious drainage. Objective - Vital Signs Vital signs: Vital Signs Temp 98.7 F 01/15/18 06:19 Pulse 70 01/15/18 06:19 Resp 18 01/15/18 06:19 BP 147/75 01/15/18 06:19 Pulse Ox 94 L 01/15/18 06:19 Intake & Output 01/14/18 01/15/18 01/15/18 18:59 06:59 18:59 Intake Total 1600 Balance 1600 Intake: Oral 1600 Other: # Voids 3 3 # Bowel Movements 1 1 - Labs CBC & Chem 7: 01/15/18 07:11 01/15/18 07:11 Labs: Abnormal Lab Results - Last 24 Hours (Table) 01/14/18 01/14/18 01/14/18 Range/Units 11:34 16:42 20:45 RBC (4.30-5.90) m/uL Hgb (13.0-17.5) gm/dL Hct (39.0-53.0) % BUN (9-20) mg/dL Creatinine (0.66-1.25) mg/dL POC Glucose (mg/dL) 137 H 175 H 231 H (75-99) mg/dL ALT (21-72) U/L Total Protein (6.3-8.2) g/dL Albumin (3.5-5.0) g/dL 01/15/18 01/15/18 Range/Units 07:11 07:11 RBC 3.54 L (4.30-5.90) m/uL Hgb 10.1 L (13.0-17.5) gm/dL Hct 30.8 L (39.0-53.0) % BUN 24 H (9-20) mg/dL Creatinine 1.72 H (0.66-1.25) mg/dL POC Glucose (mg/dL) (75-99) mg/dL ALT 17 L (21-72) U/L Total Protein 6.2 L (6.3-8.2) g/dL Albumin 2.9 L (3.5-5.0) g/dL Assessment and Plan Plan: Assessment: 1. Nonoliguric acute kidney injury secondary to ATN secondary to hypotension and use of vancomycin. Urine eosinophils negative. Creatinine was 2.21 yesterday and is stable at 1.72 today. 2. Metabolic acidosis secondary to acute kidney injury. Improved. 3. Left foot infection status post debridement and wound VAC placement on January 07. Wound culture positive for MRSA and Enterobacter. 4. Insulin-dependent diabetes mellitus. Plan: Hep-Lock IV fluids. Maintain oral sodium bicarbonate 650 mg twice daily. Avoid nephrotoxins. Awaits d/c to rehab.
--- NOTE | 2018-01-15 09:37 | P.PN ---
Subjective Progress Note Date: 01/14/18 77 year old male presents to Hospital after being evaluated by orthopedics because of difficulties with his left foot. The patient has a known history of a Charcot foot to the left side. The following wound healing center for many months. 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 However the patient had significant deformity to the foot and he was sent to the orthopedic foot and ankle specialist and he has not been taking to the operating room on 2017 for the midfoot osteotomy and talonavicular fusion. Surgery went well but is now presenting with swelling erythema and some drainage to the site. Pleasant and relates unfortunately he is not having much pain is not having high -grade fever chills or rigors. Infectious disease was requested regarding antibiotic therapy. 01/10/2018 Better at this point in time denies new troubles. Recovering well from surgery. No fevers or chills 01/13/2018 patient is showing some improvement. He is denying intermittent troubles. Having no great difficulty since the recent surgery. They're working on his discharge plan. 01/14/2018 patient shows further improvement. Anus improved. Denies intermittent difficulties such as fevers or chills. Plans being made for his discharge to extended care. Objective - Vital Signs Vital signs: Vital Signs Temp 98.7 F 01/15/18 06:19 Pulse 70 01/15/18 06:19 Resp 18 01/15/18 06:19 BP 147/75 01/15/18 06:19 Pulse Ox 94 L 01/15/18 06:19 Intake & Output 01/14/18 01/15/18 01/15/18 18:59 06:59 18:59 Intake Total 1600 Balance 1600 Intake: Oral 1600 Other: # Voids 3 3 # Bowel Movements 1 1 - Exam Pleasant 77-year-old male who is comfortable at this time who is not in acute distress HEENT: Anicteric conjunctiva are pink and moist nasal mucosa grossly intact without significant lesions, there is no thrush. Neck: The neck is supple without significant lymphadenopathy or thyromegaly. Lungs: Good bilateral air entry without significant crackles or wheezing. There is no significant bronchial sounds. There is no egophony or dullness. Heart: Regular rate and rhythm with an audible S1-S2, no S3 no S4. There is no significant murmur click or rub, PMI was nondisplaced. Abdomen: Positive bowel sounds soft and nontender without palpable masses or organomegaly. There was no guarding or rebound. Extremities: The upper extremities have excellent pulses they are symmetric, no significant petechiae or telangiectasia. No splinter hemorrhages were noted. Right lower extremity without abnormalities. The left foot is evaluated. The surgical wounds have evidence of some erythema some drainage some tenderness no patrick crepitance or fluctuance. . No lymphadenopathy in the left groin and no other abnormal lymph nodes are noted Neuro: Awake alert oriented to person place and time. There are no acute new gross focal sensory motor deficits except his peripheral neuropathy especially at the feet - Labs CBC & Chem 7: 01/15/18 07:11 01/15/18 07:11 Labs: Abnormal Lab Results - Last 24 Hours (Table) 01/14/18 01/14/18 01/14/18 Range/Units 11:34 16:42 20:45 RBC (4.30-5.90) m/uL Hgb (13.0-17.5) gm/dL Hct (39.0-53.0) % BUN (9-20) mg/dL Creatinine (0.66-1.25) mg/dL POC Glucose (mg/dL) 137 H 175 H 231 H (75-99) mg/dL ALT (21-72) U/L Total Protein (6.3-8.2) g/dL Albumin (3.5-5.0) g/dL 01/15/18 01/15/18 Range/Units 07:11 07:11 RBC 3.54 L (4.30-5.90) m/uL Hgb 10.1 L (13.0-17.5) gm/dL Hct 30.8 L (39.0-53.0) % BUN 24 H (9-20) mg/dL Creatinine 1.72 H (0.66-1.25) mg/dL POC Glucose (mg/dL) (75-99) mg/dL ALT 17 L (21-72) U/L Total Protein 6.2 L (6.3-8.2) g/dL Albumin 2.9 L (3.5-5.0) g/dL Laboratory Results WBC 7.6 k/uL (3.8-10.6) 01/15/18 07:11 RBC 3.54 m/uL (4.30-5.90) L 01/15/18 07:11 Hgb 10.1 gm/dL (13.0-17.5) L 01/15/18 07:11 Hct 30.8 % (39.0-53.0) L 01/15/18 07:11 MCV 87.2 fL (80.0-100.0) 01/15/18 07:11 MCH 28.5 pg (25.0-35.0) 01/15/18 07:11 MCHC 32.6 g/dL (31.0-37.0) 01/15/18 07:11 RDW 15.4 % (11.5-15.5) 01/15/18 07:11 Plt Count 272 k/uL (150-450) 01/15/18 07:11 Neutrophils % 75 % 01/15/18 07:11 Lymphocytes % 15 % 01/15/18 07:11 Monocytes % 5 % 01/15/18 07:11 Eosinophils % 4 % 01/15/18 07:11 Basophils % 1 % 01/15/18 07:11 Neutrophils # 5.7 k/uL (1.3-7.7) 01/15/18 07:11 Lymphocytes # 1.1 k/uL (1.0-4.8) 01/15/18 07:11 Monocytes # 0.4 k/uL (0-1.0) 01/15/18 07:11 Eosinophils # 0.3 k/uL (0-0.7) 01/15/18 07:11 Basophils # 0.0 k/uL (0-0.2) 01/15/18 07:11 Hypochromasia Slight 01/15/18 07:11 ESR 111 mm/hr (0-15) H 01/06/18 17:49 Sodium 140 mmol/L (137-145) 01/15/18 07:11 Potassium 4.4 mmol/L (3.5-5.1) 01/15/18 07:11 Chloride 107 mmol/L (98-107) 01/15/18 07:11 Carbon Dioxide 23 mmol/L (22-30) 01/15/18 07:11 Anion Gap 10 mmol/L 01/15/18 07:11 BUN 24 mg/dL (9-20) H 01/15/18 07:11 Creatinine 1.72 mg/dL (0.66-1.25) H 01/15/18 07:11 Est GFR (CKD-EPI)AfAm 44 (>60 ml/min/1.73 sqM) 01/15/18 07:11 Est GFR (CKD-EPI)NonAf 38 (>60 ml/min/1.73 sqM) 01/15/18 07:11 Glucose 88 mg/dL (74-99) 01/15/18 07:11 POC Glucose (mg/dL) 77 mg/dL (75-99) 01/15/18 07:41 POC Glu Bus Cleaner ID Bushra Reed 01/15/18 07:[address] Glu mg/dL 243 01/07/18 06:50 Hemoglobin A1c 10.1 % (4.0-6.0) H 01/07/18 06:50 Calcium 8.7 mg/dL (8.4-10.2) 01/15/18 07:11 Total Bilirubin 0.4 mg/dL (0.2-1.3) 01/15/18 07:11 AST 17 U/L (17-59) 01/15/18 07:11 ALT 17 U/L (21-72) L 01/15/18 07:11 Alkaline Phosphatase 51 U/L (38-126) 01/15/18 07:11 C-Reactive Protein 51.1 mg/L (<10.0) H 01/06/18 17:49 Total Protein 6.2 g/dL (6.3-8.2) L 01/15/18 07:11 Albumin 2.9 g/dL (3.5-5.0) L 01/15/18 07:11 Urine Color Yellow 01/07/18 00:45 Urine Appearance Clear (Clear) 01/07/18 00:45 Urine pH 5.0 (5.0-8.0) 01/07/18 00:45 Ur Specific [place] 1.015 (1.001-1.035) 01/07/18 00:45 Urine Protein Trace (Negative) H 01/07/18 00:45 Urine Glucose (UA) Negative (Negative) 01/07/18 00:45 Urine Ketones Negative (Negative) 01/07/18 00:45 Urine Blood Negative (Negative) 01/07/18 00:45 Urine Nitrite Negative (Negative) 01/07/18 00:45 Urine Bilirubin Negative (Negative) 01/07/18 00:45 Urine Urobilinogen <2.0 mg/dL (<2.0) 01/07/18 00:45 Ur Leukocyte Esterase Negative (Negative) 01/07/18 00:45 Urine Eosinophils 0 % 01/11/18 18:30 Urine Osmolality 257 mosm/kg (50-1400) 01/11/18 18:30 U Random Total Protein 22 mg/dL (<12) H 01/11/18 18:30 Ur Random Sodium 70 mmol/L 01/11/18 18:30 Urine Collection Time 24 hrs 01/11/18 20:15 Ur 24 Hour Volume 2300 mls (250-2400) 01/11/18 20:15 Ur Creatinine 24 Hour 784.3 mg/24hr (1000.0-2000.0) L 01/11/18 20:15 Vancomycin Trough 13.5 ug/mL 01/09/18 06:55 Random Vancomycin 18.9 ug/mL 01/11/18 08:06 Microbiology 01/06/18 17:49 Blood Blood Culture - Final No Growth after 144 hours 01/07/18 19:56 Foot - Left Anaerobic Culture - Final 01/07/18 19:56 Foot - Left Anaerobic Culture - Final 01/07/18 19:56 Foot - Left Gram Stain - Final 01/07/18 19:56 Foot - Left Wound Culture - Final Methicillin resist S. aureus 01/07/18 19:56 Foot - Left Gram Stain - Final 01/07/18 19:56 Foot - Left Wound Culture - Final Enterobacter hormaechei Methicillin resist S. aureus 01/07/18 09:07 Foot - Left Gram Stain - Final 01/07/18 09:07 Foot - Left Wound Culture - Final Assessment and Plan (1) Charcot's joint of foot Current Visit: No Status: Acute Priority: Medium Code(s): M14.679 - CHARCOT'S JOINT, UNSPECIFIED ANKLE AND FOOT SNOMED Code(s): 754327466 (2) Left foot infection Narrative/Plan: 77-year-old male who comes from [facility] receive his medical care, had been long-standing patient wound healing center with total contact casting. Excellent resolution of the plantar ulcerations. Given the extensive Charcot foot and was sent to the orthopedic foot and ankle specialist where he underwent reconstruction at the Charcot site reduce pressure and resolve his chronic ulceration issues. Approximately 14 days after surgery is now developed some erythema swelling and drainage and has been admitted. The operating room for incision and drainage. Patient has prior cultures Zosyn and vancomycin will be utilized for now we have further data. I do inquire with his significant other if he needs outpatient continuous antibiotic therapy how that will work. Apparently they would be willing to go back to [place] needed for antibiotics and local wound care. Ensure adequate blood glucose control protein supplementation and a multivitamin while patients hospitalized. 01/10/2018 patient is much more comfortable. For the getting back to [facility]. Surgical notes are reviewed. Culture shows evidence of MSSA and Enterobacter species. There is a potential for utilizing oral antibiotic therapy with trimethoprim sulfamethoxazole. We'll recheck his creatinine in the morning to make sure that it is back to his baseline. Local wound care with silver alginate dressing can be arranged in the outpatient setting. We'll work with orthopedics regarding the discharge plan, his boot is already available. 01/13/2018 Patient is doing better. Case is discussed with the primary team and the patient will enter rehab to complete his course of antibiotic therapy received local wound care and therapy. The case and discussed with the orthopedic team at the time debridement there was concern of infection down to the bony structure. Consequently planned 42 days of therapy. Ceftriaxone will be utilized for the Enterobacter. Patient was on vancomycin but developed acute renal failure and consequently was transitioned to daptomycin. Extended care will not accept daptomycin consider transitioning to Linezolide to complete the therapy for the MRSA isolate with local wound care 01/14/2018 patient has further improvement. They're working toward transfer to extended care. Rocephin will be utilized, vancomycin being considered given the difficulties of acute renal failure and long-term therapy. Daptomycin that an option for the extended care facility and he is not transitioned to Zyvox and tolerating that well. Continue local wound care, we'll transition to silver alginate. Current Visit: Yes Status: Acute Priority: Medium Code(s): L08.9 - LOCAL INFECTION OF THE SKIN AND SUBCUTANEOUS TISSUE, UNSP SNOMED Code(s): 847349020
[2018-01-15 12:40] LABS: Glucose,Whole Blood 99 mg/dL (75-99)
[2018-01-15] MEDS: MULTIVITAMINS, THERA 1 EACH TAB PO SCH (13:20)
[2018-01-15 17:30] LABS: Glucose,Whole Blood 119 mg/dL (75-99)
[2018-01-15] MEDS: ATORVASTATIN 20 MG TAB PO SCH (20:59)
[2018-01-15 21:06] LABS: Glucose,Whole Blood 159 mg/dL (75-99)
[2018-01-15] MEDS: INSULIN DETEMIR 100 UNIT/ML 10 ML VIAL SQ SCH (21:08)
[2018-01-16] MEDS: INSULIN ASPART 100 UNIT/ML 1 ML 10 ML VIAL SQ SCH ×4 (07:44→20:35)
[2018-01-16] MEDS: SODIUM BICARBONATE TAB 650 MG TAB PO SCH ×2 (07:49→20:13)
[2018-01-16] MEDS: DOCUSATE 100 MG CAP PO SCH ×2 (07:50→20:13)
[2018-01-16] MEDS: metFORMIN 500 MG TAB PO SCH ×2 (07:52→17:35)
[2018-01-16 07:57] LABS: Glucose,Whole Blood 85 mg/dL (75-99)
[2018-01-16 07:57] LABS: Glucose,Whole Blood 68 mg/dL (75-99)
[2018-01-16] MEDS ORDERED: ACETAMINOPHEN TAB 325 MG TAB PO SCH (08:00)
[2018-01-16] MEDS ORDERED: ONDANSETRON 4 MG/2 ML VIAL IVP PRN (08:09)
--- NOTE | 2018-01-16 08:09 | P.PN ---
Subjective Progress Note Date: 01/16/18 This is a 77-year-old male who is status post I&D of the left foot on 2017. Patient states that he has had some recent low blood sugars which have caused headaches. Otherwise, patient denies any new complaints. Patient denies any fever/chills, numbness, weakness, tingling, abdominal pain, shortness of breath or chest pain. Objective - Vital Signs Vital signs: Vital Signs Temp 96.9 F L 01/16/18 07:00 Pulse 77 01/16/18 07:00 Resp 18 01/16/18 07:00 BP 128/70 01/16/18 07:00 Pulse Ox 95 01/16/18 07:00 Intake & Output 01/15/18 01/16/18 01/16/18 18:59 06:59 18:59 Intake Total 1000 Balance 1000 Weight 97.069 kg Intake: Oral 1000 Other: Voiding Method Bedside Commode Bedside Commode # Voids 3 3 # Bowel Movements 1 - Exam Dressing is clean, dry and intact. Patient has good range of motion of the left ankle and foot. Calf is soft and nontender to palpation. Neurovascular status and circulatory status are intact. - Labs CBC & Chem 7: 01/15/18 07:11 01/15/18 07:11 Labs: Abnormal Lab Results - Last 24 Hours (Table) 01/15/18 01/15/18 01/15/18 Range/Units 07:11 17:25 21:04 BUN 24 H (9-20) mg/dL Creatinine 1.72 H (0.66-1.25) mg/dL POC Glucose (mg/dL) 119 H 159 H (75-99) mg/dL ALT 17 L (21-72) U/L Total Protein 6.2 L (6.3-8.2) g/dL Albumin 2.9 L (3.5-5.0) g/dL 01/16/18 Range/Units 07:35 BUN (9-20) mg/dL Creatinine (0.66-1.25) mg/dL POC Glucose (mg/dL) 68 L (75-99) mg/dL ALT (21-72) U/L Total Protein (6.3-8.2) g/dL Albumin (3.5-5.0) g/dL Assessment and Plan (1) Left foot infection Current Visit: Yes Status: Acute Priority: Medium Code(s): L08.9 - LOCAL INFECTION OF THE SKIN AND SUBCUTANEOUS TISSUE, UNSP SNOMED Code(s): 657256281 (2) Charcot's joint of foot Current Visit: No Status: Acute Priority: Medium Code(s): M14.679 - CHARCOT'S JOINT, UNSPECIFIED ANKLE AND FOOT SNOMED Code(s): 288722030 (3) Diabetic ulcer of toe of left foot associated with type 2 diabetes mellitus , with necrosis of bone Current Visit: No Status: Acute Code(s): E11.621 - TYPE 2 DIABETES MELLITUS WITH FOOT ULCER; L97.524 - NON-PRS CHRONIC ULCER OTH PRT LEFT FOOT W NECROSIS OF BONE SNOMED Code(s): 560785407228748 Plan: 1. Continue wound care, warm soaks and daily dressing changes per infectious disease. 2. Continue IV antibiotics per infectious disease. 3. Patient is to be nonweightbearing in a boot. 4. Anticipate discharge to rehab on Wednesday.
[2018-01-16] MEDS ORDERED: ACETAMINOPHEN TAB 325 MG TAB PO PRN (08:32)
[2018-01-16] MEDS: DAPTOmycin 500 MG in SODIUM CHLORIDE 0.9% 50 ML IVPB SCH (09:05)
--- NOTE | 2018-01-16 11:43 | P.PN ---
Subjective Patient is seen in follow-up for acute kidney injury. Renal function is stable with creatinine at 1.72 as of yesterday. He's currently being treated for left foot infection and underwent debridement with wound VAC placement this admission. Admits to good urine output. Oral intake is good. No vomiting or diarrhea. Awaits placement to rehab. No active complaints at this time. Vital signs are stable. General: The patient appeared well nourished and normally developed. HEENT: Head exam is unremarkable. Neck is without jugular venous distension. LUNGS: Lungs are clear to auscultation and percussion. Breath sounds decreased. HEART: Rate and Rhythm are regular. First and second heart sounds normal. No murmurs, rubs or gallops. ABDOMEN: Abdominal exam reveals normal bowel sounds. Non-tender and non- distended. No evidence of peritonitis. EXTREMITITES: No clubbing, cyanosis, or edema. Left lower extremity wrapped. No obvious drainage. Objective - Vital Signs Vital signs: Vital Signs Temp 96.9 F L 01/16/18 07:00 Pulse 77 01/16/18 07:00 Resp 18 01/16/18 07:45 BP 128/70 01/16/18 07:00 Pulse Ox 95 01/16/18 07:00 Intake & Output 01/15/18 01/16/18 01/16/18 18:59 06:59 18:59 Intake Total 1000 320 Balance 1000 320 Weight 97.069 kg Intake: Oral 1000 320 Other: Voiding Method Bedside Commode Bedside Commode Bedside Commode # Voids 3 3 # Bowel Movements 1 - Labs CBC & Chem 7: 01/15/18 07:11 01/15/18 07:11 Labs: Abnormal Lab Results - Last 24 Hours (Table) 01/15/18 01/15/18 01/16/18 Range/Units 17:25 21:04 07:35 POC Glucose (mg/dL) 119 H 159 H 68 L (75-99) mg/dL Assessment and Plan Plan: Assessment: 1. Nonoliguric acute kidney injury secondary to ATN secondary to hypotension and use of vancomycin. Urine eosinophils negative. Creatinine around 1.7 to as of yesterday. 2. Metabolic acidosis secondary to acute kidney injury. Improved. 3. Left foot infection status post debridement and wound VAC placement on January 07. Wound culture positive for MRSA and Enterobacter. 4. Insulin-dependent diabetes mellitus. Plan: Hep-Lock IV fluids. Maintain oral sodium bicarbonate 650 mg twice daily. Avoid nephrotoxins. Awaits d/c to rehab.
[2018-01-16 12:26] LABS: Glucose,Whole Blood 142 mg/dL (75-99)
[2018-01-16] MEDS: MULTIVITAMINS, THERA 1 EACH TAB PO SCH (12:47)
[2018-01-16 17:18] LABS: Glucose,Whole Blood 161 mg/dL (75-99)
[2018-01-16] MEDS: ATORVASTATIN 20 MG TAB PO SCH (20:13)
[2018-01-16 20:25] LABS: Glucose,Whole Blood 175 mg/dL (75-99)
[2018-01-16] MEDS: INSULIN DETEMIR 100 UNIT/ML 10 ML VIAL SQ SCH (20:35)
[2018-01-17 07:16] LABS: Glucose,Whole Blood 78 mg/dL (75-99)
[2018-01-17] MEDS: INSULIN ASPART 100 UNIT/ML 1 ML 10 ML VIAL SQ SCH ×4 (07:37→21:25)
[2018-01-17] MEDS: metFORMIN 500 MG TAB PO SCH ×2 (08:06→18:10)
[2018-01-17] MEDS: SODIUM BICARBONATE TAB 650 MG TAB PO SCH ×2 (08:06→21:25)
[2018-01-17] MEDS: DOCUSATE 100 MG CAP PO SCH ×2 (08:07→21:25)
--- NOTE | 2018-01-17 09:18 | P.PN ---
Subjective Patient is seen in follow-up for acute kidney injury. Renal function is stable with creatinine at 1.72 as of 01/15. He's currently being treated for left foot infection and underwent debridement with wound VAC placement this admission. Admits to good urine output. Oral intake is good. No vomiting or diarrhea. Awaits placement to rehab. No active complaints at this time. Vital signs are stable. General: The patient appeared well nourished and normally developed. HEENT: Head exam is unremarkable. Neck is without jugular venous distension. LUNGS: Lungs are clear to auscultation and percussion. Breath sounds decreased. HEART: Rate and Rhythm are regular. First and second heart sounds normal. No murmurs, rubs or gallops. ABDOMEN: Abdominal exam reveals normal bowel sounds. Non-tender and non- distended. No evidence of peritonitis. EXTREMITITES: No clubbing, cyanosis, or edema. Left lower extremity wrapped. No obvious drainage. Objective - Vital Signs Vital signs: Vital Signs Temp 98.4 F 01/17/18 07:00 Pulse 70 01/17/18 07:00 Resp 16 01/17/18 07:00 BP 167/71 01/17/18 07:00 Pulse Ox 96 01/17/18 07:00 Intake & Output 01/16/18 01/17/18 01/17/18 18:59 06:59 18:59 Intake Total 520 Balance 520 Intake: Oral 520 Other: Voiding Method Bedside Commode # Voids 2 3 # Bowel Movements 1 1 - Labs CBC & Chem 7: 01/15/18 07:11 01/15/18 07:11 Labs: Abnormal Lab Results - Last 24 Hours (Table) 01/16/18 01/16/18 01/16/18 Range/Units 12:20 17:14 20:24 POC Glucose (mg/dL) 142 H 161 H 175 H (75-99) mg/dL Assessment and Plan Plan: Assessment: 1. Nonoliguric acute kidney injury secondary to ATN secondary to hypotension and use of vancomycin. Urine eosinophils negative. Creatinine stable as of . 2. Metabolic acidosis secondary to acute kidney injury. Improved. 3. Left foot infection status post debridement and wound VAC placement on January 07. Wound culture positive for MRSA and Enterobacter. 4. Insulin-dependent diabetes mellitus. Plan: Remains off all IV fluids. Oral intake is good. Maintain oral sodium bicarbonate 650 mg twice daily. Avoid nephrotoxins. Awaits d/c to rehab. Follow up outpatient in the next 1-2 weeks.
--- NOTE | 2018-01-17 11:18 | P.PN ---
Subjective Progress Note Date: 01/15/18 Principal diagnosis: Left diabetic foot infection Interval history: This is a 77-year-old gentleman admitted with left foot infection, status post I&D, wound VAC application with cultures reporting MRSA , Enterobacter species and multiple other medical issues. Maintained on IV antibiotics as per infectious disease. Worsening of renal function, creatinine 1.98. Blood sugars ranging in the low 100s to low 200s. Denies chest pain, palpitations or increased shortness of breath. Pain controlled. 01/11/2018 maintained on IV antibiotics as per infectious disease. Renal function continues to worsen, creatinine currently 2.21. Pain controlled. Diet intake remains fair, blood sugars currently running low 100s. Denies chest pain, palpitations or shortness of breath. 01/12/18 Iv antibiotics adjusted, with Vancomycin Dcd. Maintained on gentle IV fluid hydration, creatinine improving, down to 1.98. Urine studies in progress , evaluated by nephrology with recommendations noted. Pain controlled. Blood sugars ranging from 120s to 260s. Afebrile. 01/13/18 maintained on gentle IV fluid hydration, renal function continues to improve, down to 1.69. Good diet intake, no nausea vomiting or diarrhea. Blood sugars controlled. Pain controlled. 01/14/2018 maintained on IV antibiotics ,creatinine 1.72. Good diet intake no nausea vomiting or diarrhea. Pain controlled. Discharge planning in progress for today to subacute rehab as per orthopedic surgery. Denies chest pain, palpitations or increased shortness of breath. Denies any focal deficits. 01/15/2018 Patient denied any complaints of chest pain or shortness of breath. Patient is being continued on device in the form of ceftriaxone and daptomycin for left foot infection. Renal function is improving. Denied any complaints of fever or chills. No other acute overnight issues otherwise. No nausea vomiting or abdominal pain. Active Medications Generic Name Dose Route Start Last Admin Trade Name Freq PRN Reason Stop Dose Admin Acetaminophen 650 mg 01/16/18 08:32 Tylenol Tab PO Q8H PRN Fever and/ or Pain Hydrocodone Bitart/Acetaminophen 1 each 01/06/18 15:40 01/16/18 05:52 [place] 5-325 PO 1 each Q4HR PRN Administration Pain Scale 1 to 5 Hydrocodone Bitart/Acetaminophen 2 each 01/06/18 15:40 [place] 5-325 PO Q6HR PRN Pain Scale 6 to 10 Atorvastatin Calcium 20 mg 01/06/18 21:00 01/16/18 20:13 Lipitor PO 20 mg HS SHAHEED Administration Docusate Sodium 100 mg 01/06/18 21:00 01/17/18 08:07 Colace PO 100 mg BID SHAHEED Administration Ceftriaxone Sodium 1,000 mg/ 50 mls @ 100 mls/hr 01/11/18 15:00 01/17/18 08: 06 Sodium Chloride IVPB 100 mls/hr Q24HR SHAHEED Administration Daptomycin 500 mg/ Sodium 50 mls @ 100 mls/hr 01/12/18 09:00 01/16/18 09:05 Chloride IVPB 100 mls/hr Q48H SHAHEED Administration Protocol Insulin Aspart 0 unit 01/07/18 07:30 01/17/18 07:37 Novolog SQ Not Given ACHS SHAHEED Protocol Insulin Detemir 54 unit 01/16/18 21:00 01/16/18 20:35 Levemir SQ 54 unit HS SHAHEED Administration Metformin HCl 1,000 mg 01/13/18 17:30 01/17/18 08:06 Glucophage PO 1,000 mg BID-W/MEALS SHAHEED Administration Multivitamins 1 each 01/08/18 12:00 01/16/18 12:47 Theragran PO 1 each DAILY@1200 SHAHEED Administration Ondansetron HCl 4 mg 01/16/18 08:09 Zofran IVP Q8H PRN Nausea Sodium Bicarbonate 650 mg 01/12/18 10:15 01/17/18 08:06 Sodium Bicarbonate Tab PO 650 mg BID SHAHEED Administration Objective - Vital Signs Vital signs: Vital Signs Temp 98.7 F 01/15/18 06:19 Pulse 70 01/15/18 06:19 Resp 18 01/15/18 06:19 BP 147/75 01/15/18 06:19 Pulse Ox 94 L 01/15/18 06:19 Intake & Output 01/14/18 01/15/18 01/15/18 18:59 06:59 18:59 Intake Total 1600 Balance 1600 Intake: Oral 1600 Other: Voiding Method Bedside Commode # Voids 3 3 3 # Bowel Movements 1 1 1 - Exam PHYSICAL EXAM: VITAL SIGNS: As above GENERAL: Sitting up at side of bed no acute distress. HEENT: Conjunctivae normal. eyes normal. Oral mucosa moist NECK: No JVD. No thyroid enlargement. No LNs CARDIOVASCULAR: S1, S2 muffled. No murmur RESPIRATION: Breath sounds diminished in the bases. No rhonchi or crackles. ABDOMEN: Soft, nontender . No guarding. no masses palpable.Bowel sounds heard. EXTREMITIES: Left foot elevated, dressing clean, dry, intact, toes warm and pink PSYCHIATRY: Alert and oriented -3, mood and affect normal. NERVOUS SYSTEM: Cranial N 2-12 grossly normal. Moves all 4 limbs. Diffuse weakness No focal deficits. - Labs CBC & Chem 7: 01/15/18 07:11 01/15/18 07:11 Labs: Abnormal Lab Results - Last 24 Hours (Table) 01/14/18 01/14/18 01/15/18 Range/Units 16:42 20:45 07:11 RBC 3.54 L (4.30-5.90) m/uL Hgb 10.1 L (13.0-17.5) gm/dL Hct 30.8 L (39.0-53.0) % BUN (9-20) mg/dL Creatinine (0.66-1.25) mg/dL POC Glucose (mg/dL) 175 H 231 H (75-99) mg/dL ALT (21-72) U/L Total Protein (6.3-8.2) g/dL Albumin (3.5-5.0) g/dL 01/15/18 Range/Units 07:11 RBC (4.30-5.90) m/uL Hgb (13.0-17.5) gm/dL Hct (39.0-53.0) % BUN 24 H (9-20) mg/dL Creatinine 1.72 H (0.66-1.25) mg/dL POC Glucose (mg/dL) (75-99) mg/dL ALT 17 L (21-72) U/L Total Protein 6.2 L (6.3-8.2) g/dL Albumin 2.9 L (3.5-5.0) g/dL Assessment and Plan Assessment: -Left foot infection, status post I&D, application of wound VAC with MRSA and Enterobacter hormaechei -History of left talonavicular fusion, left 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 -Diabetes mellitus type 2. Insulin-dependent -Hyponatremia,mild -Acute renal failure, possibly med induced, on vancomycin-now discontinued, converted to daptomycin, improving. Plan: Continue on current medication regime . Continue with antibiotics.. Discharge planning in progress as per orthopedic surgery. Close monitoring of renal function and Accu-Cheks. Further recommendations to follow. Time with Patient: Greater than 30
--- NOTE | 2018-01-17 11:20 | P.PN ---
Subjective Progress Note Date: 01/16/18 Principal diagnosis: Left diabetic foot infection Interval history: This is a 77-year-old gentleman admitted with left foot infection, status post I&D, wound VAC application with cultures reporting MRSA , Enterobacter species and multiple other medical issues. Maintained on IV antibiotics as per infectious disease. Worsening of renal function, creatinine 1.98. Blood sugars ranging in the low 100s to low 200s. Denies chest pain, palpitations or increased shortness of breath. Pain controlled. 01/11/2018 maintained on IV antibiotics as per infectious disease. Renal function continues to worsen, creatinine currently 2.21. Pain controlled. Diet intake remains fair, blood sugars currently running low 100s. Denies chest pain, palpitations or shortness of breath. 01/12/18 Iv antibiotics adjusted, with Vancomycin Dcd. Maintained on gentle IV fluid hydration, creatinine improving, down to 1.98. Urine studies in progress , evaluated by nephrology with recommendations noted. Pain controlled. Blood sugars ranging from 120s to 260s. Afebrile. 01/13/18 maintained on gentle IV fluid hydration, renal function continues to improve, down to 1.69. Good diet intake, no nausea vomiting or diarrhea. Blood sugars controlled. Pain controlled. 01/14/2018 maintained on IV antibiotics ,creatinine 1.72. Good diet intake no nausea vomiting or diarrhea. Pain controlled. Discharge planning in progress for today to subacute rehab as per orthopedic surgery. Denies chest pain, palpitations or increased shortness of breath. Denies any focal deficits. 01/15/2018 Patient denied any complaints of chest pain or shortness of breath. Patient is being continued on device in the form of ceftriaxone and daptomycin for left foot infection. Renal function is improving. Denied any complaints of fever or chills. No other acute overnight issues otherwise. No nausea vomiting or abdominal pain. 01/16/2018 Patient denied any complaints of chest pain or shortness of breath. Blood sugar is slightly low at 68 this morning. Insulin dose will be reduced from 58 units to 54 units and follow-up tomorrow. Continued on antibiotics for left foot diabetic infection. Continue with ceftriaxone and daptomycin. Will follow -up repeat BMP tomorrow. No fever no chills. His renal function is improving and patient will be continued on wound care. Anticipate discharge to rehab with long-term antibiotics. ID is on board. Active Medications Generic Name Dose Route Start Last Admin Trade Name Freq PRN Reason Stop Dose Admin Acetaminophen 650 mg 01/16/18 08:32 Tylenol Tab PO Q8H PRN Fever and/ or Pain Hydrocodone Bitart/Acetaminophen 1 each 01/06/18 15:40 01/16/18 05:52 [place] 5-325 PO 1 each Q4HR PRN Administration Pain Scale 1 to 5 Hydrocodone Bitart/Acetaminophen 2 each 01/06/18 15:40 [place] 5-325 PO Q6HR PRN Pain Scale 6 to 10 Atorvastatin Calcium 20 mg 01/06/18 21:00 01/16/18 20:13 Lipitor PO 20 mg HS SHAHEED Administration Docusate Sodium 100 mg 01/06/18 21:00 01/17/18 08:07 Colace PO 100 mg BID SHAHEED Administration Ceftriaxone Sodium 1,000 mg/ 50 mls @ 100 mls/hr 01/11/18 15:00 01/17/18 08: 06 Sodium Chloride IVPB 100 mls/hr Q24HR SHAHEED Administration Daptomycin 500 mg/ Sodium 50 mls @ 100 mls/hr 01/12/18 09:00 01/16/18 09:05 Chloride IVPB 100 mls/hr Q48H SHAHEED Administration Protocol Insulin Aspart 0 unit 01/07/18 07:30 01/17/18 07:37 Novolog SQ Not Given ACHS SHAHEED Protocol Insulin Detemir 54 unit 01/16/18 21:00 01/16/18 20:35 Levemir SQ 54 unit HS SHAHEED Administration Metformin HCl 1,000 mg 01/13/18 17:30 01/17/18 08:06 Glucophage PO 1,000 mg BID-W/MEALS SHAHEED Administration Multivitamins 1 each 01/08/18 12:00 01/16/18 12:47 Theragran PO 1 each DAILY@1200 SHAHEED Administration Ondansetron HCl 4 mg 01/16/18 08:09 Zofran IVP Q8H PRN Nausea Sodium Bicarbonate 650 mg 01/12/18 10:15 01/17/18 08:06 Sodium Bicarbonate Tab PO 650 mg BID SHAHEED Administration Objective - Vital Signs Vital signs: Vital Signs Temp 98.4 F 01/16/18 14:30 Pulse 72 01/16/18 14:30 Resp 16 01/16/18 14:30 BP 127/71 01/16/18 14:30 Pulse Ox 90 L 01/16/18 14:30 Intake & Output 01/15/18 01/16/18 01/16/18 18:59 06:59 18:59 Intake Total 1000 520 Balance 1000 520 Weight 97.069 kg Intake: Oral 1000 520 Other: Voiding Method Bedside Commode Bedside Commode Bedside Commode # Voids 3 3 3 # Bowel Movements 1 - Exam PHYSICAL EXAM: VITAL SIGNS: As above GENERAL: Sitting up at side of bed no acute distress. HEENT: Conjunctivae normal. eyes normal. Oral mucosa moist NECK: No JVD. No thyroid enlargement. No LNs CARDIOVASCULAR: S1, S2 muffled. No murmur RESPIRATION: Breath sounds diminished in the bases. No rhonchi or crackles. ABDOMEN: Soft, nontender . No guarding. no masses palpable.Bowel sounds heard. EXTREMITIES: Left foot elevated, dressing clean, dry, intact, toes warm and pink PSYCHIATRY: Alert and oriented -3, mood and affect normal. NERVOUS SYSTEM: Cranial N 2-12 grossly normal. Moves all 4 limbs. Diffuse weakness No focal deficits. - Labs CBC & Chem 7: 01/15/18 07:11 01/15/18 07:11 Labs: Abnormal Lab Results - Last 24 Hours (Table) 01/15/18 01/15/18 01/16/18 Range/Units 17:25 21:04 07:35 POC Glucose (mg/dL) 119 H 159 H 68 L (75-99) mg/dL 01/16/18 Range/Units 12:20 POC Glucose (mg/dL) 142 H (75-99) mg/dL Assessment and Plan Assessment: -Left foot infection, status post I&D, application of wound VAC with MRSA and Enterobacter hormaechei -History of left talonavicular fusion, left 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 -Diabetes mellitus type 2. Insulin-dependent -Hyponatremia,mild -Acute renal failure, possibly med induced, on vancomycin-now discontinued, converted to daptomycin, improving. Plan: Continue on current medication regime . Continue with antibiotics.. Discharge planning in progress as per orthopedic surgery. Close monitoring of renal function and Accu-Cheks. Further recommendations to follow. Time with Patient: Greater than 30
[2018-01-17 12:04] LABS: Calcium 9.1 mg/dL (8.4-10.2); Potassium 4.7 mmol/L (3.5-5.1)
[2018-01-17 12:32] LABS: Glucose,Whole Blood 142 mg/dL (75-99)
[2018-01-17] MEDS: MULTIVITAMINS, THERA 1 EACH TAB PO SCH (13:13)
[2018-01-17 17:23] LABS: Glucose,Whole Blood 142 mg/dL (75-99)
[2018-01-17 21:03] LABS: Glucose,Whole Blood 195 mg/dL (75-99)
[2018-01-17] MEDS: INSULIN DETEMIR 100 UNIT/ML 10 ML VIAL SQ SCH (21:25)
[2018-01-17] MEDS: ATORVASTATIN 20 MG TAB PO SCH (21:25)
--- NOTE | 2018-01-17 22:57 | P.PN ---
Subjective Progress Note Date: 01/17/18 77 year old male presents to Hospital after being evaluated by orthopedics because of difficulties with his left foot. The patient has a known history of a Charcot foot to the left side. The following wound healing center for many months. 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 However the patient had significant deformity to the foot and he was sent to the orthopedic foot and ankle specialist and he has not been taking to the operating room on 2017 for the midfoot osteotomy and talonavicular fusion. Surgery went well but is now presenting with swelling erythema and some drainage to the site. Pleasant and relates unfortunately he is not having much pain is not having high -grade fever chills or rigors. Infectious disease was requested regarding antibiotic therapy. 01/10/2018 Better at this point in time denies new troubles. Recovering well from surgery. No fevers or chills 01/13/2018 patient is showing some improvement. He is denying intermittent troubles. Having no great difficulty since the recent surgery. They're working on his discharge plan. 01/14/2018 patient shows further improvement. Anus improved. Denies intermittent difficulties such as fevers or chills. Plans being made for his discharge to extended care. 01/17/2018 patient continues to have some improvement. No further fevers or chills. Within for transfer to extended care awaiting the appeals process. Objective - Vital Signs Vital signs: Vital Signs Temp 99.2 F 01/17/18 14:36 Pulse 77 01/17/18 16:00 Resp 16 01/17/18 16:00 BP 150/74 01/17/18 14:36 Pulse Ox 93 L 01/17/18 14:36 Intake & Output 01/17/18 01/17/18 01/18/18 06:59 18:59 06:59 Output Total 3800 Balance -3800 Weight 97.069 kg Output: Urine 3800 Other: Voiding Method Bedside Commode # Voids 3 4 # Bowel Movements 1 1 - Exam Pleasant 77-year-old male who is comfortable at this time who is not in acute distress HEENT: Anicteric conjunctiva are pink and moist nasal mucosa grossly intact without significant lesions, there is no thrush. Neck: The neck is supple without significant lymphadenopathy or thyromegaly. Lungs: Good bilateral air entry without significant crackles or wheezing. There is no significant bronchial sounds. There is no egophony or dullness. Heart: Regular rate and rhythm with an audible S1-S2, no S3 no S4. There is no significant murmur click or rub, PMI was nondisplaced. Abdomen: Positive bowel sounds soft and nontender without palpable masses or organomegaly. There was no guarding or rebound. Extremities: The upper extremities have excellent pulses they are symmetric, no significant petechiae or telangiectasia. No splinter hemorrhages were noted. Right lower extremity without abnormalities. The left foot is evaluated. The surgical wounds have evidence of some erythema some drainage some tenderness no patrick crepitance or fluctuance. . No lymphadenopathy in the left groin and no other abnormal lymph nodes are noted Neuro: Awake alert oriented to person place and time. There are no acute new gross focal sensory motor deficits except his peripheral neuropathy especially at the feet - Labs CBC & Chem 7: 01/15/18 07:11 01/17/18 11:32 Labs: Abnormal Lab Results - Last 24 Hours (Table) 01/17/18 01/17/18 01/17/18 Range/Units 11:32 12:20 17:20 BUN 24 H (9-20) mg/dL Creatinine 1.49 H (0.66-1.25) mg/dL Glucose 135 H (74-99) mg/dL POC Glucose (mg/dL) 142 H 142 H (75-99) mg/dL 01/17/18 Range/Units 21:01 BUN (9-20) mg/dL Creatinine (0.66-1.25) mg/dL Glucose (74-99) mg/dL POC Glucose (mg/dL) 195 H (75-99) mg/dL Laboratory Results WBC 7.6 k/uL (3.8-10.6) 01/15/18 07:11 RBC 3.54 m/uL (4.30-5.90) L 01/15/18 07:11 Hgb 10.1 gm/dL (13.0-17.5) L 01/15/18 07:11 Hct 30.8 % (39.0-53.0) L 01/15/18 07:11 MCV 87.2 fL (80.0-100.0) 01/15/18 07:11 MCH 28.5 pg (25.0-35.0) 01/15/18 07:11 MCHC 32.6 g/dL (31.0-37.0) 01/15/18 07:11 RDW 15.4 % (11.5-15.5) 01/15/18 07:11 Plt Count 272 k/uL (150-450) 01/15/18 07:11 Neutrophils % 75 % 01/15/18 07:11 Lymphocytes % 15 % 01/15/18 07:11 Monocytes % 5 % 01/15/18 07:11 Eosinophils % 4 % 01/15/18 07:11 Basophils % 1 % 01/15/18 07:11 Neutrophils # 5.7 k/uL (1.3-7.7) 01/15/18 07:11 Lymphocytes # 1.1 k/uL (1.0-4.8) 01/15/18 07:11 Monocytes # 0.4 k/uL (0-1.0) 01/15/18 07:11 Eosinophils # 0.3 k/uL (0-0.7) 01/15/18 07:11 Basophils # 0.0 k/uL (0-0.2) 01/15/18 07:11 Hypochromasia Slight 01/15/18 07:11 ESR 111 mm/hr (0-15) H 01/06/18 17:49 Sodium 140 mmol/L (137-145) 01/17/18 11:32 Potassium 4.7 mmol/L (3.5-5.1) 01/17/18 11:32 Chloride 104 mmol/L (98-107) 01/17/18 11:32 Carbon Dioxide 23 mmol/L (22-30) 01/17/18 11:32 Anion Gap 13 mmol/L 01/17/18 11:32 BUN 24 mg/dL (9-20) H 01/17/18 11:32 Creatinine 1.49 mg/dL (0.66-1.25) H 01/17/18 11:32 Est GFR (CKD-EPI)AfAm 52 (>60 ml/min/1.73 sqM) 01/17/18 11:32 Est GFR (CKD-EPI)NonAf 45 (>60 ml/min/1.73 sqM) 01/17/18 11:32 Glucose 135 mg/dL (74-99) H 01/17/18 11:32 POC Glucose (mg/dL) 195 mg/dL (75-99) H 01/17/18 21:01 POC Glu Trip Rider ID Annie Edwards 01/17/18 21:[address] Glu mg/dL 243 01/07/18 06:50 Hemoglobin A1c 10.1 % (4.0-6.0) H 01/07/18 06:50 Calcium 9.1 mg/dL (8.4-10.2) 01/17/18 11:32 Total Bilirubin 0.4 mg/dL (0.2-1.3) 01/15/18 07:11 AST 17 U/L (17-59) 01/15/18 07:11 ALT 17 U/L (21-72) L 01/15/18 07:11 Alkaline Phosphatase 51 U/L (38-126) 01/15/18 07:11 C-Reactive Protein 51.1 mg/L (<10.0) H 01/06/18 17:49 Total Protein 6.2 g/dL (6.3-8.2) L 01/15/18 07:11 Albumin 2.9 g/dL (3.5-5.0) L 01/15/18 07:11 Urine Color Yellow 01/07/18 00:45 Urine Appearance Clear (Clear) 01/07/18 00:45 Urine pH 5.0 (5.0-8.0) 01/07/18 00:45 Ur Specific [place] 1.015 (1.001-1.035) 01/07/18 00:45 Urine Protein Trace (Negative) H 01/07/18 00:45 Urine Glucose (UA) Negative (Negative) 01/07/18 00:45 Urine Ketones Negative (Negative) 01/07/18 00:45 Urine Blood Negative (Negative) 01/07/18 00:45 Urine Nitrite Negative (Negative) 01/07/18 00:45 Urine Bilirubin Negative (Negative) 01/07/18 00:45 Urine Urobilinogen <2.0 mg/dL (<2.0) 01/07/18 00:45 Ur Leukocyte Esterase Negative (Negative) 01/07/18 00:45 Urine Eosinophils 0 % 01/11/18 18:30 Urine Osmolality 257 mosm/kg (50-1400) 01/11/18 18:30 U Random Total Protein 22 mg/dL (<12) H 01/11/18 18:30 Ur Random Sodium 70 mmol/L 01/11/18 18:30 Urine Collection Time 24 hrs 01/11/18 20:15 Ur 24 Hour Volume 2300 mls (250-2400) 01/11/18 20:15 Ur Creatinine 24 Hour 784.3 mg/24hr (1000.0-2000.0) L 01/11/18 20:15 Vancomycin Trough 13.5 ug/mL 01/09/18 06:55 Random Vancomycin 18.9 ug/mL 01/11/18 08:06 Microbiology 01/06/18 17:49 Blood Blood Culture - Final No Growth after 144 hours 01/07/18 19:56 Foot - Left Anaerobic Culture - Final 01/07/18 19:56 Foot - Left Anaerobic Culture - Final 01/07/18 19:56 Foot - Left Gram Stain - Final 01/07/18 19:56 Foot - Left Wound Culture - Final Methicillin resist S. aureus 01/07/18 19:56 Foot - Left Gram Stain - Final 01/07/18 19:56 Foot - Left Wound Culture - Final Enterobacter hormaechei Methicillin resist S. aureus 01/07/18 09:07 Foot - Left Gram Stain - Final 01/07/18 09:07 Foot - Left Wound Culture - Final Assessment and Plan (1) Charcot's joint of foot Current Visit: No Status: Acute Priority: Medium Code(s): M14.679 - CHARCOT'S JOINT, UNSPECIFIED ANKLE AND FOOT SNOMED Code(s): 257181240 (2) Left foot infection Narrative/Plan: 77-year-old male who comes from [facility] receive his medical care, had been long-standing patient wound healing center with total contact casting. Excellent resolution of the plantar ulcerations. Given the extensive Charcot foot and was sent to the orthopedic foot and ankle specialist where he underwent reconstruction at the Charcot site reduce pressure and resolve his chronic ulceration issues. Approximately 14 days after surgery is now developed some erythema swelling and drainage and has been admitted. The operating room for incision and drainage. Patient has prior cultures Zosyn and vancomycin will be utilized for now we have further data. I do inquire with his significant other if he needs outpatient continuous antibiotic therapy how that will work. Apparently they would be willing to go back to [place] needed for antibiotics and local wound care. Ensure adequate blood glucose control protein supplementation and a multivitamin while patients hospitalized. 01/10/2018 patient is much more comfortable. For the getting back to [facility]. Surgical notes are reviewed. Culture shows evidence of MSSA and Enterobacter species. There is a potential for utilizing oral antibiotic therapy with trimethoprim sulfamethoxazole. We'll recheck his creatinine in the morning to make sure that it is back to his baseline. Local wound care with silver alginate dressing can be arranged in the outpatient setting. We'll work with orthopedics regarding the discharge plan, his boot is already available. 01/13/2018 Patient is doing better. Case is discussed with the primary team and the patient will enter rehab to complete his course of antibiotic therapy received local wound care and therapy. The case and discussed with the orthopedic team at the time debridement there was concern of infection down to the bony structure. Consequently planned 42 days of therapy. Ceftriaxone will be utilized for the Enterobacter. Patient was on vancomycin but developed acute renal failure and consequently was transitioned to daptomycin. Extended care will not accept daptomycin consider transitioning to Linezolide to complete the therapy for the MRSA isolate with local wound care 01/14/2018 patient has further improvement. They're working toward transfer to extended care. Rocephin will be utilized, vancomycin being considered given the difficulties of acute renal failure and long-term therapy. Daptomycin that an option for the extended care facility and he is not transitioned to Zyvox and tolerating that well. Continue local wound care, we'll transition to silver alginate. 01/17/2018 there is further improvement and patient is awaiting his placement in an extended care to receive his antibiotic therapy with Rocephin and daptomycin. Local wound care with silver alginate is being utilized. We'll follow up in the wound center at the time of his transfer to the extended care facility. Current Visit: Yes Status: Acute Priority: Medium Code(s): L08.9 - LOCAL INFECTION OF THE SKIN AND SUBCUTANEOUS TISSUE, UNSP SNOMED Code(s): 532626836
[2018-01-18 07:35] LABS: Glucose,Whole Blood 95 mg/dL (75-99)
[2018-01-18] MEDS: INSULIN ASPART 100 UNIT/ML 1 ML 10 ML VIAL SQ SCH ×4 (07:47→21:55)
[2018-01-18] MEDS: DOCUSATE 100 MG CAP PO SCH ×2 (07:48→21:54)
[2018-01-18] MEDS: SODIUM BICARBONATE TAB 650 MG TAB PO SCH ×2 (07:49→21:54)
[2018-01-18] MEDS: metFORMIN 500 MG TAB PO SCH ×2 (07:49→17:43)
[2018-01-18] MEDS: DAPTOmycin 500 MG in SODIUM CHLORIDE 0.9% 50 ML IVPB SCH (08:34)
--- NOTE | 2018-01-18 09:18 | P.PN ---
Subjective Progress Note Date: 01/18/18 Principal diagnosis: Left foot infection Patient seen at bedside today. No complaints. He is status post I and D left foot on 01/07/18. Cultures have shown MRSA and he has PICC line in place. He is awaiting transfer to [facility]. He denies fever, chills, chest pain. SOB. Objective - Vital Signs Vital signs: Vital Signs Temp 98.2 F 01/18/18 06:47 Pulse 75 01/18/18 06:47 Resp 18 01/18/18 06:47 BP 139/65 01/18/18 06:47 Pulse Ox 94 L 01/18/18 06:47 Intake & Output 01/17/18 01/18/18 01/18/18 18:59 06:59 18:59 Intake Total 100 Output Total 3800 Balance -3800 100 Weight 97.069 kg Intake: Intake, IV Titration 100 Amount DAPTOmycin 500 mg In 50 Sodium Chloride 0.9% 50 ml @ 100 mls/hr IVPB Q48H [facility]HEED Rx#:[id number] cefTRIAXone 1,000 mg In 50 Sodium Chloride 0.9% 50 ml @ 100 mls/hr IVPB Q24HR SHAHEED Rx#:[id number] Output: Urine 3800 Other: Voiding Method Bedside Commode # Voids 4 2 # Bowel Movements 1 2 - Exam Dressing intact. No active bleeding or drainage seen. Less than 2 sec cap refill present in all toes. NVI. Calf is SNT - Constitutional General appearance: Present: no acute distress - Psychiatric Psychiatric: Present: A&O x's 3, appropriate affect, intact judgment & insight - Labs CBC & Chem 7: 01/15/18 07:11 01/17/18 11:32 Labs: Abnormal Lab Results - Last 24 Hours (Table) 01/17/18 01/17/18 01/17/18 Range/Units 11:32 12:20 17:20 BUN 24 H (9-20) mg/dL Creatinine 1.49 H (0.66-1.25) mg/dL Glucose 135 H (74-99) mg/dL POC Glucose (mg/dL) 142 H 142 H (75-99) mg/dL 01/17/18 Range/Units 21:01 BUN (9-20) mg/dL Creatinine (0.66-1.25) mg/dL Glucose (74-99) mg/dL POC Glucose (mg/dL) 195 H (75-99) mg/dL Assessment and Plan (1) Left foot infection Narrative/Plan: Continue wound care, antibiotics and daily dressing changes per ID. Continue Non weightbearing in boot. Transfer to [facility] when approved by insurance. F/U with Dr. Davis in office Current Visit: Yes Status: Acute Priority: Medium Code(s): L08.9 - LOCAL INFECTION OF THE SKIN AND SUBCUTANEOUS TISSUE, UNSP SNOMED Code(s): 053960640 Time with Patient: Less than 30
--- NOTE | 2018-01-18 12:45 | P.PN ---
Subjective Patient is seen in follow-up for acute kidney injury. Renal function continues to improve with creatinine down to 1.49 as of January 17. He's currently being treated for left foot infection and underwent debridement with wound VAC placement this admission. Admits to good urine output. Oral intake is good. No vomiting or diarrhea. Awaits placement to rehab. No active complaints at this time. Vital signs are stable. General: The patient appeared well nourished and normally developed. HEENT: Head exam is unremarkable. Neck is without jugular venous distension. LUNGS: Lungs are clear to auscultation and percussion. Breath sounds decreased. HEART: Rate and Rhythm are regular. First and second heart sounds normal. No murmurs, rubs or gallops. ABDOMEN: Abdominal exam reveals normal bowel sounds. Non-tender and non- distended. No evidence of peritonitis. EXTREMITITES: No clubbing, cyanosis, or edema. Left lower extremity wrapped. No obvious drainage. Objective - Vital Signs Vital signs: Vital Signs Temp 98.2 F 01/18/18 06:47 Pulse 75 01/18/18 06:47 Resp 18 01/18/18 06:47 BP 139/65 01/18/18 06:47 Pulse Ox 94 L 01/18/18 06:47 Intake & Output 01/17/18 01/18/18 01/18/18 18:59 06:59 18:59 Intake Total 340 Output Total 3800 Balance -3800 340 Weight 97.069 kg Intake: Intake, IV Titration 100 Amount DAPTOmycin 500 mg In 50 Sodium Chloride 0.9% 50 ml @ 100 mls/hr IVPB Q48H [facility] Rx#:[id number] cefTRIAXone 1,000 mg In 50 Sodium Chloride 0.9% 50 ml @ 100 mls/hr IVPB Q24HR [facility] Rx#:[id number] Oral 240 Output: Urine 3800 Other: Voiding Method Bedside Commode # Voids 4 2 # Bowel Movements 1 2 - Labs CBC & Chem 7: 01/15/18 07:11 01/17/18 11:32 Labs: Abnormal Lab Results - Last 24 Hours (Table) 01/17/18 01/17/18 Range/Units 17:20 21:01 POC Glucose (mg/dL) 142 H 195 H (75-99) mg/dL Assessment and Plan Plan: Assessment: 1. Nonoliguric acute kidney injury secondary to ATN secondary to hypotension and use of vancomycin. Urine eosinophils negative. Renal function improving with creatinine down to 1.49 as of January 17. 2. Metabolic acidosis secondary to acute kidney injury. Improved. 3. Left foot infection status post debridement and wound VAC placement on January 07. Wound culture positive for MRSA and Enterobacter. 4. Insulin-dependent diabetes mellitus. Plan: Remains off all IV fluids. Oral intake is good. Maintain oral sodium bicarbonate 650 mg twice daily. Avoid nephrotoxins. Awaits d/c to rehab. Follow up outpatient in the next 1-2 weeks.
[2018-01-18] MEDS: MULTIVITAMINS, THERA 1 EACH TAB PO SCH (12:55)
[2018-01-18 13:09] LABS: Glucose,Whole Blood 140 mg/dL (75-99)
[2018-01-18 17:19] LABS: Glucose,Whole Blood 176 mg/dL (75-99)
[2018-01-18 20:54] LABS: Glucose,Whole Blood 205 mg/dL (75-99)
[2018-01-18] MEDS: INSULIN DETEMIR 100 UNIT/ML 10 ML VIAL SQ SCH (21:55)
[2018-01-18] MEDS: ATORVASTATIN 20 MG TAB PO SCH (23:44)
[2018-01-19 07:16] LABS: Glucose,Whole Blood 74 mg/dL (75-99)
[2018-01-19] MEDS: INSULIN ASPART 100 UNIT/ML 1 ML 10 ML VIAL SQ SCH ×4 (08:17→22:14)
[2018-01-19] MEDS: DOCUSATE 100 MG CAP PO SCH ×2 (08:18→22:13)
[2018-01-19] MEDS: metFORMIN 500 MG TAB PO SCH ×2 (08:18→18:00)
[2018-01-19] MEDS: SODIUM BICARBONATE TAB 650 MG TAB PO SCH ×2 (08:19→22:13)
[2018-01-19 11:27] LABS: Glucose,Whole Blood 102 mg/dL (75-99)
--- NOTE | 2018-01-19 11:55 | P.PN ---
Subjective Patient is seen in follow-up for acute kidney injury. Renal function continues to improve with creatinine down to 1.49 as of January 17. He's currently being treated for left foot infection and underwent debridement with wound VAC placement this admission. Admits to good urine output. Oral intake is good. No vomiting or diarrhea. Awaits placement to rehab. No active complaints at this time. Vital signs are stable. General: The patient appeared well nourished and normally developed. HEENT: Head exam is unremarkable. Neck is without jugular venous distension. LUNGS: Lungs are clear to auscultation and percussion. Breath sounds decreased. HEART: Rate and Rhythm are regular. First and second heart sounds normal. No murmurs, rubs or gallops. ABDOMEN: Abdominal exam reveals normal bowel sounds. Non-tender and non- distended. No evidence of peritonitis. EXTREMITITES: No clubbing, cyanosis, or edema. Left lower extremity wrapped. No obvious drainage. Objective - Vital Signs Vital signs: Vital Signs Temp 97.9 F 01/19/18 06:35 Pulse 64 01/19/18 06:35 Resp 18 01/19/18 08:00 BP 150/69 01/19/18 06:35 Pulse Ox 93 L 01/19/18 06:35 Intake & Output 01/18/18 01/19/18 01/19/18 18:59 06:59 18:59 Intake Total 540 150 Balance 540 150 Weight 97.069 kg Intake: Intake, IV Titration 100 150 Amount DAPTOmycin 500 mg In 50 100 Sodium Chloride 0.9% 50 ml @ 100 mls/hr IVPB Q48H [facility] Rx#:[id number] cefTRIAXone 1,000 mg In 50 50 Sodium Chloride 0.9% 50 ml @ 100 mls/hr IVPB Q24HR [facility]HE[facility] Rx#:[id number] Oral 440 Other: Voiding Method Bedside Commode Bedside Commode # Voids 2 3 - Labs CBC & Chem 7: 01/15/18 07:11 01/17/18 11:32 Labs: Abnormal Lab Results - Last 24 Hours (Table) 01/18/18 01/18/18 01/18/18 Range/Units 11:42 16:56 20:53 POC Glucose (mg/dL) 140 H 176 H 205 H (75-99) mg/dL 09/26/18 09/26/18 Range/Units 07:14 11:25 POC Glucose (mg/dL) 74 L 102 H (75-99) mg/dL Assessment and Plan Plan: Assessment: 1. Nonoliguric acute kidney injury secondary to ATN secondary to hypotension and use of vancomycin. Urine eosinophils negative. Renal function improving with creatinine down to 1.49 as of January 17. 2. Metabolic acidosis secondary to acute kidney injury. Improved. 3. Left foot infection status post debridement and wound VAC placement on January 07. Wound culture positive for MRSA and Enterobacter. 4. Insulin-dependent diabetes mellitus. Plan: Remains off all IV fluids. Oral intake is good. Maintain oral sodium bicarbonate 650 mg twice daily. Avoid nephrotoxins. Awaits d/c to rehab. Follow up outpatient in the next 1-2 weeks.
[2018-01-19] MEDS: MULTIVITAMINS, THERA 1 EACH TAB PO SCH (11:58)
[2018-01-19] MEDS ORDERED: DAPTOmycin 500 MG in SODIUM CHLORIDE 0.9% 50 ML IVPB SCH (16:00)
[2018-01-19 16:54] LABS: Glucose,Whole Blood 142 mg/dL (75-99)
[2018-01-19] MEDS: INSULIN DETEMIR 100 UNIT/ML 10 ML VIAL SQ SCH (22:13)
[2018-01-19] MEDS: ATORVASTATIN 20 MG TAB PO SCH (22:13)
[2018-01-19 22:15] LABS: Glucose,Whole Blood 145 mg/dL (75-99)
[2018-01-20 04:50] LABS: Glucose,Whole Blood 63 mg/dL (75-99)
[2018-01-20 05:22] LABS: Glucose,Whole Blood 139 mg/dL (75-99)
[2018-01-20] MEDS: INSULIN ASPART 100 UNIT/ML 1 ML 10 ML VIAL SQ SCH ×2 (07:29→12:11)
[2018-01-20] MEDS: DOCUSATE 100 MG CAP PO SCH (07:31)
[2018-01-20] MEDS: metFORMIN 500 MG TAB PO SCH (07:31)
[2018-01-20] MEDS: SODIUM BICARBONATE TAB 650 MG TAB PO SCH (07:31)
[2018-01-20 07:36] LABS: Glucose,Whole Blood 115 mg/dL (75-99)
--- NOTE | 2018-01-20 11:42 | P.PN ---
Subjective Patient is seen in follow-up for acute kidney injury. Renal function continues to improve with creatinine down to 1.49 as of January 17. He's currently being treated for left foot infection and underwent debridement with wound VAC placement this admission. Admits to good urine output. Oral intake is good. No vomiting or diarrhea. Awaits placement to rehab. No active complaints at this time. Vital signs are stable. General: The patient appeared well nourished and normally developed. HEENT: Head exam is unremarkable. Neck is without jugular venous distension. LUNGS: Lungs are clear to auscultation and percussion. Breath sounds decreased. HEART: Rate and Rhythm are regular. First and second heart sounds normal. No murmurs, rubs or gallops. ABDOMEN: Abdominal exam reveals normal bowel sounds. Non-tender and non- distended. No evidence of peritonitis. EXTREMITITES: No clubbing, cyanosis, or edema. Left lower extremity wrapped. No obvious drainage. Objective - Vital Signs Vital signs: Vital Signs Temp 98.7 F 01/20/18 07:00 Pulse 74 01/20/18 07:00 Resp 16 01/20/18 07:00 BP 149/74 01/20/18 07:00 Pulse Ox 95 01/20/18 07:00 Intake & Output 01/19/18 01/20/18 01/20/18 18:59 06:59 18:59 Intake Total 200 Output Total 800 Balance -800 200 Intake: Intake, IV Titration 200 Amount DAPTOmycin 500 mg In 100 Sodium Chloride 0.9% 50 ml @ 100 mls/hr IVPB Q24H [facility] Rx#:[id number] cefTRIAXone 1,000 mg In 100 Sodium Chloride 0.9% 50 ml @ 100 mls/hr IVPB Q24HR [facility] Rx#:[id number] Output: Urine 800 Other: Voiding Method Bedside Commode Toilet # Voids 3 2 - Labs CBC & Chem 7: 01/15/18 07:11 01/17/18 11:32 Labs: Abnormal Lab Results - Last 24 Hours (Table) 01/19/18 01/19/18 01/20/18 Range/Units 16:51 22:13 04:47 POC Glucose (mg/dL) 142 H 145 H 63 L (75-99) mg/dL 01/20/18 01/20/18 Range/Units 05:17 07:21 POC Glucose (mg/dL) 139 H 115 H (75-99) mg/dL Assessment and Plan Plan: Assessment: 1. Nonoliguric acute kidney injury secondary to ATN secondary to hypotension and use of vancomycin. Urine eosinophils negative. Renal function improving with creatinine down to 1.49 as of January 17. 2. Metabolic acidosis secondary to acute kidney injury. Improved. 3. Left foot infection status post debridement and wound VAC placement on January 07. Wound culture positive for MRSA and Enterobacter. 4. Insulin-dependent diabetes mellitus. Plan: Remains off all IV fluids. Oral intake is good. Maintain oral sodium bicarbonate 650 mg twice daily. Avoid nephrotoxins. Awaits d/c to rehab. Follow up outpatient in the next 1-2 weeks.
[2018-01-20 11:49] LABS: Glucose,Whole Blood 131 mg/dL (75-99)
[2018-01-20] MEDS: MULTIVITAMINS, THERA 1 EACH TAB PO SCH (13:12)
--- NOTE | 2018-01-20 13:49 | P.PN ---
Progress Note - Text Progress Note Date: 01/20/18 This is a addendum to discharge summary for Ajit Humphries. His discharge we to placement is. He is discharged 01/20/18. Antibiotics per ID. Home meds per IM. Please see previous D/C summary.
[2018-01-20 14:27] VITALS: BP 140/74; PULSE 76; RESP 18; TEMP 98.8
--- NOTE | 2018-01-21 12:17 | CDI ---
Last Revision, March 2017 Documentation Clarification Form Date: 01/21/18 From: Bernie Oscar Yumiko Ayala, Electrical Linesworker Hours-8:30 am & 5 pm MZoey Admit Date: 01/06/2018 5:04:00 PM Patient Name: Ajit Humphries Visit Number: [id number] Discharge Date: 01/20/18 ATTENTION: The Clinical Documentation Specialists (CDI) and [facility] Coding Staff appreciate your assistance in clarifying documentation. Please respond to the clarification below the line at the bottom and electronically sign. The CDI & [facility] Coding staff will review the response and follow-up if needed. Please note: Queries are made part of the Legal Health Record. If you have any questions, please contact the author of this message via ITS. Bong Escobar MD Per your operative note, an excisional debridement was performed on the left. History/Risk Factors: left foot deep surgical site infection, DM Operative report: sharply excised with a scalpel down to the level of bone In order to capture the severity of condition and code the appropriate procedure ; could you please document the following: Did the debridement include bone (if so, include name of the bone)? Other; please specify Unable to determine (no explanation for clinical findings) Please continue to document in your progress notes and discharge summary in order to capture severity of illness and risk of mortality. Include clinical findings that support your diagnosis. MTDD
--- NOTE | 2018-01-27 13:21 | CDI ---
Last Revision, March 2017 Documentation Clarification Form Date: 01/27/18 From: Bernie Oscar Yumiko Ayala, Sexual Assault Counsellor Hours-8:30 am & 5 pm MZoey Admit Date: 01/06/2018 5:04:00 PM Patient Name: Ajit Humphries Visit Number: [id number] Discharge Date: 01/20/18 ATTENTION: The Clinical Documentation Specialists (CDI) and [facility] Coding Staff appreciate your assistance in clarifying documentation. Please respond to the clarification below the line at the bottom and electronically sign. The CDI & [facility] Coding staff will review the response and follow-up if needed. Please note: Queries are made part of the Legal Health Record. If you have any questions, please contact the author of this message via ITS. Bong Escobar MD Per your operative note, an excisional debridement was performed on the left. History/Risk Factors: left foot deep surgical site infection, DM Operative report: sharply excised with a scalpel down to the level of bone In order to capture the severity of condition and code the appropriate procedure ; could you please document the following: Did the debridement include bone (if so, include name of the bone)? Other; please specify Unable to determine (no explanation for clinical findings) Please continue to document in your progress notes and discharge summary in order to capture severity of illness and risk of mortality. Include clinical findings that support your diagnosis. Debridement did not include bone MTDD
== END 2018-01-20 14:46 | DRG 856 ==
LOC: 5MS5E 17:04 → 4MS4W 01-09 20:55
PROVIDERS: ADMIT Orthopaedic Surgery; ATTEND Orthopaedic Surgery
PROC: 0LBW0ZZ Excision of Left Foot Tendon, Open Approach (ICD-10-PCS; 2018-01-07)
PROC: 02HV33Z Insertion of Infusion Device into Superior Vena Cava, Percutaneous Approach (ICD-10-PCS; principal; 2018-01-11 13:39)
DX: T81.4XXA Infection following a procedure, initial encounter (principal); N17.0 Acute kidney failure with tubular necrosis; E87.1 Hypo-osmolality and hyponatremia; E87.2 Acidosis; I95.9 Hypotension, unspecified; E11.610 Type 2 diabetes mellitus with diabetic neuropathic arthropathy; E11.42 Type 2 diabetes mellitus with diabetic polyneuropathy; E11.621 Type 2 diabetes mellitus with foot ulcer; E87.5 Hyperkalemia; L97.529 Non-pressure chronic ulcer of other part of left foot with unspecified severity; A49.01 Methicillin susceptible Staphylococcus aureus infection, unspecified site; N40.0 Benign prostatic hyperplasia without lower urinary tract symptoms; I10 Essential (primary) hypertension; G47.30 Sleep apnea, unspecified; E78.5 Hyperlipidemia, unspecified; L08.9 Local infection of the skin and subcutaneous tissue, unspecified; M19.91 Primary osteoarthritis, unspecified site; Z91.19 Patient's noncompliance with other medical treatment and regimen; Z79.82 Long term (current) use of aspirin; Z79.4 Long term (current) use of insulin; Z79.899 Other long term (current) drug therapy; Z98.1 Arthrodesis status; Z87.891 Personal history of nicotine dependence; Z85.828 Personal history of other malignant neoplasm of skin; Z86.14 Personal history of Methicillin resistant Staphylococcus aureus infection; Z99.89 Dependence on other enabling machines and devices; Z80.0 Family history of malignant neoplasm of digestive organs; Z83.3 Family history of diabetes mellitus
CPT/HCPCS: 36569; 76937; 77001; 80048; 80053; 80202; 81003; 81050; 82570; 83036; 83935; 84132; 84156; 84300; 85025; 85652; 86140; 87040; 87070; 87075; 87077; 87186; 87205